=== PATIENT | male | born 1990 | race Caucasian/White ===

== ENCOUNTER 2024-09-17 00:50 | Emergency (ER) | payer MEDICAID, SELFPAY ==
[2024-09-17 01:00] VITALS: BP 128/76; PULSE 122; RESP 20; TEMP 37.5; O2SAT 100
--- NOTE | 2024-09-17 01:08 | PD.EDMEDCL ---
ED Medical Clearance RME/HPI General Chief complaint: Medical Clearance Stated complaint: MEDICAL CLEARANCE Arrival date/time: 09/17/24 00:50 RME / HPI RME / HPI Narrative: Dr. Rodriguez?s Main ED Evaluation: 34yo male with a history of HTN, schizophrenia BIB PPD presents to the ED for a medical clearance. Per PPD, patient would not allow staff at the residential to obtain his vitals, so he was sent over for evaluation. Patient is screaming at staff and is not providing any history. Related Information Previous Rx's ?Medication ?Instructions ?Recorded levofloxacin 750 mg tablet 750 mg PO QDAY #3 tabs 03/20/22 quetiapine 300 mg tablet (Seroquel) 600 mg (2 x 300 mg) PO QDAY #30 03/06/24 tabs Allergies Allergy/AdvReac Type Severity Reaction Status Date / Time ketorolac Allergy Intermediate ITCHING Verified 03/06/24 15:08 Review of Systems Review of Systems ROS Unobtainable: other (due to being uncooperative) Past Medical History Past Medical History NEUROLOGIC: Negative Neurological Disorders CARDIAC: Positive Cardiac Disorders and Hypertension; Negative Congestive Heart Failure RESPIRATORY: Positive Chronic Obstructive Pulmonary Disease (COPD); Negative Asthma GASTROINTESTINAL: Negative Gastrointestinal Disorders GENITOURINARY: Negative Genitourinary Disorders or Renal Disease MUSCULOSKELETAL: Positive Musculoskeletal Disorders ENDOCRINE: Negative Endocrine Disorders, Diabetes Mellitus Type 1 or Diabetes Mellitus Type 2 HEMATOLOGIC: Negative Blood Disorders or Sickle Cell Disease PSYCHO/SOCIAL: Positive Depression and Anxiety OTHER HISTORY: Positive Hospitalization and Chicken Pox; Negative Autoimmune Disease, Down Syndrome, Developmental Delay, Shingles, Falls, Blood Transfusions or Anesthesia Reactions Family History FAMILY HISTORY: Positive Family Cancer Social History SMOKING STATUS: Never smoker SUBSTANCE USE: former substance user ED Exam Narrative Physical exam: Patient is very belligerent and screaming at staff. He is not allowing me to perform a physical examination on him. Patient is yelling without any slurred speech and is observed to ambulate without any difficulty. Vital signs are within normal limits. Course Quality Measures none Vital Signs Vital signs: Vital Signs Temperature 99.5 F 09/17/24 01:00 Pulse Rate 122 H 09/17/24 01:00 Respiratory Rate 20 09/17/24 01:00 Blood Pressure 128/76 09/17/24 01:00 Pulse Oximetry (%) 100 09/17/24 01:00 Oxygen Delivery Method Room Air 09/17/24 01:00 Medical Clearance MDM Narrative MDM Narrative:: Scribe Attestation: 09/17/24 Fanny Doe am scribing for and in the presence of Dr. Rodriguez. Patient data External records reviewed:: [facility], [place] previous records (Per chart review, patient was seen here on 02/15/24 for bipolar disorder.) Clinical information provided by:: law enforcement Social determinants that could affect healthcare access:: mental health Patient has the following chronic illnesses:: HTN, schizophrenia How is presenting disease/condition affected by chronic disease/condition?: uneffected by Evaluation data The following diagnostics were reviewed and interpreted by me:: other (specify) (none) Lab and/or radiology exams considered but not ordered:: none Interpretation Summary: none Medications / Prescriptions Medications or Prescriptions considered but not ordered:: none Medication administrations:: none Consultations Consultation(s) initiated? (list below): No Diagnosis Medical Clearance Differential Diagnosis: other (alcohol intoxication, illicit drug intoxication, psychiatric crisis) Most likely diagnosis given after review of the tests above:: medical clearance Admission Indicated Admission indicated?: not indicated Admission Request Was there a request for admission?: No Disposition Plan Disposition Plan: Discharge Discharge Attestation Discharge Attestation: The patient and all family members were given an opportunity to ask questions and understood the discharge instructions. Discharge instructions specifically effects, indications for sooner follow up or return to the emergency department, and the expected course of current diagnosis. Patient condition: Stable Discharge Plan Plan Patient Disposition: Penitentiary/Court/Law Prescriptions/Referrals Prescriptions/Med Rec: No Action levofloxacin 750 mg tablet 750 mg PO QDAY Qty: 3 0RF quetiapine [Seroquel] 300 mg tablet 600 mg PO QDAY Qty: 30 0RF Referrals: No Primary/Family,Physician [Primary Care Provider] - In 1 week Problem List Clinical Impression: Medical clearance for incarceration Patient/Caregiver Discharge Instructions Print Language: Marshallese
== END 2024-09-17 01:12 ==
PROVIDERS: Emergency Provider Emergency Medicine
DX: Z02.89 Encounter for other administrative examinations (principal)
CPT/HCPCS: 99281

== ENCOUNTER 2024-11-04 10:59 | Emergency (ER) | payer MEDICAID, SELFPAY ==
[2024-11-04 11:00] VITALS: BMI 34.8
[2024-11-04 11:14] VITALS: BP 170/64; PULSE 88; RESP 18; TEMP 36.9; O2SAT 97
--- NOTE | 2024-11-04 11:20 | EKG_ITS ---
[facility] Test Date: 2024-11-04 Pat Name: MARVIN PRICE Department: Room: - Gender: Male Back Up Scan Coordinator: : 1990 Requested By: Rashawn Ballesteros Order Number: [id number] Reading MD: Rashawn Ballesteros Measurements Intervals [place] Rate: 64 P: 31 IA: 136 QRS: 32 QRSD: 102 T: 37 QT: 431 QTc: 446 Interpretive Statements SINUS RHYTHM Compared to ECG 03/15/2022 11:38:28 No significant changes /store/S0/[id number].pdf
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
[2024-11-04 11:45] LABS: Basophils # (Auto) 0.1 Thou/mm3 (0.0-0.2); Basophils % (Auto) 1 % (0-2.5); Eosinophils % (Auto) 0 % (0-10); Hematocrit 35.8 % (41.0-53.0); Hemoglobin 12.7 g/dL (13.5-16.0); Immature Granulocytes % (Auto) 0 % (0-0); Immature Granulocytes Auto 0.02 Thou/mm3 (0.00-0.00); Lymphocytes # (Auto) 1.8 Thou/mm3 (1.0-4.8); Lymphocytes % (Auto) 17 % (10-50); Mean Corpuscular HGB Conc 35.5 g/dl (31.0-37.0); Mean Corpuscular Hemoglobin 29.5 pg (25.0-35.0); Mean Corpuscular Volume 83 fL (80-100); Monocytes # (Auto) 0.6 Thou/mm3 (0.0-0.8); Monocytes % (Auto) 6 % (0-12); Neutrophils # (Auto) 8.1 Thou/mm3 (1.8-7.7); Neutrophils % (Auto) 76 % (37-80); Nucleated Red Blood Cell % 0 /100 WBC (0); Platelet Count 280 Thou/mm3 (140-440); RDW Standard Deviation 45.3 fL (35.1-43.9); White Blood Count 10.6 Thou/mm3 (3.8-10.6)
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
[2024-11-04 12:01] LABS: Partial Thromboplastin Time 26.6 Seconds (22.0-36.0); Prothrombin Time 10.6 Seconds (9.0-12.2)
[2024-11-04 12:03] LABS: B-Type Natriuretic Peptide 68 pg/mL (0-100)
[2024-11-04 12:06] LABS: Alanine Aminotransferase 218 U/L (10-49); Albumin, Serum 3.6 gm/dL (3.5-5.0); Albumin/Globulin Ratio 1.4 (1.2-2.2); Alkaline Phosphatase 96 U/L (46-116); Anion Gap 9 (7-16); Aspartate Amino Transferase 493 U/L (0-34); BUN/Creatinine Ratio 12 Ratio (12-20); Bilirubin,Total 0.7 mg/dL (0.3-1.2); Blood Urea Nitrogen 7 mg/dL (9-23); Calcium 8.7 mg/dL (8.3-10.6); Carbon Dioxide 29.8 mMol/L (20.0-31.0); Chloride 97 mMol/L (98-107); Creatinine (Component) 0.6 mg/dL (0.6-1.3); Globulin 2.5 gm/dL (2.3-3.5); Glucose 87 mg/dL (74-106); Magnesium 1.8 mg/dL (1.6-2.6); Osmolality,Calculated 268 (275-295); Potassium 3.6 mMol/L (3.4-5.1); Sodium 136 mMol/L (136-145); Total Protein 6.1 gm/dL (5.7-8.2); Troponin I < 0.020 ng/mL (0.0-0.045); eGFR > 60 See Note
[2024-11-04 13:32] VITALS: BP 138/78; PULSE 98; RESP 20; TEMP 36.8
[2024-11-04 13:42] LABS: Collection Type, Urine Clean Catch
[2024-11-04 13:55] LABS: Bacteria,Urine Rare; Bilirubin,Urine Negative (Negative); Blood,Urine 1+ (Negative); Clarity,Urine Clear (Clear/Hazy); Color,Urine Yellow (Lt Yel-Yel); Glucose, Urine Negative (Negative); Ketones,Urine 1+ (Negative); Leukocyte Esterase,Urine Negative (Negative); Nitrite,Urine Negative (Negative); PH,Urine 5.5 (5.0-7.0); Protein,Urine 1+ (Neg - Trace); RBC,Urine 4 /hpf (0-3); Specific Gravity,Urine 1.026 (1.001-1.035); Squamous Epithelial Cell,Urine 1 /hpf (0-5); Urobilinogen,Urine Negative mg/dL (0.0-1.0); WBC,Urine 1 /hpf (0-5)
[2024-11-04 14:00] LABS: Amphetamine/Methamp Scrn,U Negative (Negative); Barbiturate Screen,Urine Negative (Negative); Benzodiazepines Screen,Urine Negative (Negative); Benzoylecgonine Screen, Ur Negative (Negative); Fentanyl Screen,Urine Negative (Negative); Opiate Screen,Urine Negative (Negative); THC Screen,Urine Positive (Negative)
[2024-11-04 14:31] VITALS: BP 130/67; PULSE 79; RESP 12; TEMP 37.2; O2SAT 95
--- NOTE | 2024-11-04 14:39 | XR_ITS ---
Examination: Duplex scan of the upper extremity, unilateral right Date and time of exam: November 04, 2024 1511 hrs. Indications: Patient fell 2 days ago with injury to the right arm, right arm pain Technique: Duplex scan of the extremity veins using B-mode/grayscale imaging and Doppler spectral analysis and color flow Attention is directed to internal echogenicity, compression and augmentation involving these veins, color flow assessment, spectral analysis Findings: Major deep venous structures in the extremity demonstrate normal course and caliber. There is no evidence of deep vein thrombosis. Normal color flow and spectral analysis Impression: Negative for DVT..
--- NOTE | 2024-11-04 14:39 | XR_ITS ---
Examination: Forearm, right, 2 views. Technique: Forearm, AP, lateral 2 views Date and time of exam: November 04, 2024 1450 hrs. Indications: Swelling involving the right forearm today. Findings: Edema in the soft tissue diffusely No fracture No cortical bone destruction Moderate narrowing radiocarpal joint No foreign body Impression: No fracture or cortical bone destruction
--- NOTE | 2024-11-04 14:39 | XR_ITS ---
Examination: Right elbow 2 views Technique: Elbow AP, lateral 2 views Exam date and time: October 1450 hrs. Indication: Right elbow swelling and pain after falling today. Findings: No acute fracture No elbow effusion No opaque foreign body Impression: No acute fracture.
[2024-11-04] MEDS: ACETAMINOPHEN 500 MG TABLET 1000 MG PO (15:40)
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
[2024-11-04 16:43] VITALS: BP 140/66; PULSE 89; RESP 18; TEMP 36.7; O2SAT 94
[2024-11-04] MEDS: cefTRIAXone 1,000 MG, LIDOCAINE 1% 20 ML 2.1 ML IM (16:59)
== END 2024-11-04 17:50 | disposition home or self-care (01) ==
PROVIDERS: Nurse Practitioner Family; Emergency Provider Emergency Medicine
DX: S40.811A Abrasion of right upper arm, initial encounter (principal); S80.211A Abrasion, right knee, initial encounter; S80.212A Abrasion, left knee, initial encounter; S51.811A Laceration without foreign body of right forearm, initial encounter; Z59.00 Homelessness unspecified; X99.1XXA Assault by knife, initial encounter; R53.1 Weakness; R53.83 Other fatigue
CPT/HCPCS: 36415; 73070; 73090; 80053; 80307; 81001; 83735; 83880; 84484; 85025; 85610; 85730; 93005; 93971; 96372; 99284; J0696; J3490; A9270

== ENCOUNTER 2024-11-23 02:13 | Inpatient (IN) | payer MEDICAID, SELFPAY ==
[2024-11-23] VITALS (31 sets, daily range): BP systolic 78–135; BP diastolic 46–84; PULSE 80–116; RESP 13–35; TEMP 36.6–37.3; O2SAT 84–99; BMI 33.9; BMI 36.6
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
[2024-11-23] MEDS: TETANUS,DIPHTHERIA TOXOIDS/PF (ADULT) 0.5 ML SYRINGE IMi (03:39)
--- NOTE | 2024-11-23 03:44 | PC.NURSE ---
to ct-scan via gurney.
[2024-11-23 03:58] LABS: Basophils # (Auto) 0.1 Thou/mm3 (0.0-0.2); Basophils % (Auto) 0 % (0-2.5); Eosinophils # (Auto) 0.1 Thou/mm3 (0.0-0.5); Eosinophils % (Auto) 0 % (0-10); Hematocrit 38.1 % (41.0-53.0); Hemoglobin 13.2 g/dL (13.5-16.0); Immature Granulocytes % (Auto) 0 % (0-0); Immature Granulocytes Auto 0.04 Thou/mm3 (0.00-0.00); Lymphocytes # (Auto) 2.2 Thou/mm3 (1.0-4.8); Lymphocytes % (Auto) 15 % (10-50); Mean Corpuscular HGB Conc 34.6 g/dl (31.0-37.0); Mean Corpuscular Hemoglobin 29.9 pg (25.0-35.0); Mean Corpuscular Volume 86 fL (80-100); Monocytes # (Auto) 1.2 Thou/mm3 (0.0-0.8); Monocytes % (Auto) 9 % (0-12); Neutrophils # (Auto) 10.6 Thou/mm3 (1.8-7.7); Neutrophils % (Auto) 75 % (37-80); Nucleated Red Blood Cell % 0 /100 WBC (0); Platelet Count 203 Thou/mm3 (140-440); RDW Standard Deviation 52.4 fL (35.1-43.9); Red Blood Count 4.42 Miln/mm3 (4.50-5.90); White Blood Count 14.1 Thou/mm3 (3.8-10.6)
[2024-11-23 04:17] LABS: Anion Gap 11 (7-16); BUN/Creatinine Ratio 10 Ratio (12-20); Blood Urea Nitrogen 7 mg/dL (9-23); Calcium 8.9 mg/dL (8.3-10.6); Carbon Dioxide 26.6 mMol/L (20.0-31.0); Chloride 101 mMol/L (98-107); Creatinine (Component) 0.7 mg/dL (0.6-1.3); Glucose 118 mg/dL (74-106); Osmolality,Calculated 276 (275-295); Potassium 3.7 mMol/L (3.4-5.1); Sodium 139 mMol/L (136-145); eGFR > 60 See Note
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
[2024-11-23 05:52] LABS: Amphetamine/Methamp Scrn,U Negative (Negative); Barbiturate Screen,Urine Negative (Negative); Benzodiazepines Screen,Urine Negative (Negative); Benzoylecgonine Screen, Ur Negative (Negative); Fentanyl Screen,Urine Negative (Negative); Opiate Screen,Urine Negative (Negative); THC Screen,Urine Positive (Negative)
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
--- NOTE | 2024-11-23 06:58 | XR_ITS ---
Examination: CT cervical spine without contrast 2-D sagittal reconstructions 2-D coronal reconstructions 3-D reconstructions. Exam date and time:November 23, 2024 0923 hours INDICATIONS: Onset neck pain today CTDI:vol (mGy) 17.1 DLP: (mGycm) 124 Technique: Multiple 2 mm axial sections of the cervical spine have been obtained. The coronal and sagittal reconstructions have been obtained. 3-D reconstructions have been obtained. Low dose protocols were performed. One or more of the following dose reduction techniques were used; automated exposure control, adjustment of the mA and/or KV according to patient size, use of iterative reconstruction technique. Findings: Patient motion degrades scan image quality No gross fracture Advanced degenerative disc disease C6-C7 C5-C6 moderate right neural foraminal stenosis C6-C7 moderate right neural foraminal stenosis Intact odontoid IMPRESSION: Patient motion severely degrades scan image quality Advanced degenerative disc disease C6-C7 MRI cervical spine without contrast follow-up would be preferable in assessing for acquired soft tissue spinal stenosis, as clinically warranted
[2024-11-23] MEDS: BUPIVACAINE MPF 0.5% 10 ML VIAL INFL (08:21)
--- NOTE | 2024-11-23 11:00 | PC.NURSE ---
DR. MAJANO AT BEDSIDE SUTURING PT'S LAC TO L EYEBROW.
--- NOTE | 2024-11-23 12:49 | PC.NURSE ---
DR. MAJANO MADE AWARE THAT PT'S SCORE IS 12 AT THIS TIME.
[2024-11-23] MEDS: LORazepam 2 MG/ML VIAL IVP (14:09)
--- NOTE | 2024-11-23 14:17 | PC.NURSE ---
SPOKE TO ANY, PT'S MOM, WITH PT'S CONSENT AND UPDATED REGARDING PT'S POC.
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
--- NOTE | 2024-11-23 19:32 | PC.NURSE ---
Report recieved from Day RN. Pt asleep at this time. VS WNL.
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
[2024-11-23] MEDS: HYDROcodone/APAP 5/325 TABLET 1 TAB PO (22:25)
[2024-11-23] MEDS: LORazepam 2 MG/ML VIAL IV ×2 (22:33→22:34)
--- NOTE | 2024-11-23 22:39 | PC.NURSE ---
pt co bad LOPEZ and iss very shaky. CIWA 20. meds given.
[2024-11-24] VITALS (8 sets, daily range): BP systolic 98–150; BP diastolic 59–87; PULSE 98–116; RESP 15–22; TEMP 35.9–37.5; O2SAT 92–96; BMI 35.9; BMI 36.0
[2024-11-24] MEDS: LORazepam 2 MG/ML VIAL 1 MG IV (01:17)
--- NOTE | 2024-11-24 01:21 | PC.NURSE ---
pt got up and walked to the BR.
--- NOTE | 2024-11-24 03:46 | PC.NURSE ---
Report called to Shagufta RN and pt taken on monitor to RM 264 by myself.
[2024-11-24] MEDS: THIAMINE INJ 100 MG in SODIUM CHLORIDE 0.9% 50 ML 102 MG IV (05:29)
[2024-11-24 06:04] LABS: Basophils % (Auto) 0 % (0-2.5); Eosinophils % (Auto) 0 % (0-10); Hemoglobin 11.6 g/dL (13.5-16.0); Immature Granulocytes % (Auto) 0 % (0-0); Immature Granulocytes Auto 0.03 Thou/mm3 (0.00-0.00); Lymphocytes % (Auto) 21 % (10-50); Mean Corpuscular HGB Conc 33.1 g/dl (31.0-37.0); Mean Corpuscular Volume 90 fL (80-100); Monocytes # (Auto) 0.9 Thou/mm3 (0.0-0.8); Monocytes % (Auto) 10 % (0-12); Neutrophils # (Auto) 6.6 Thou/mm3 (1.8-7.7); Neutrophils % (Auto) 68 % (37-80); Nucleated Red Blood Cell % 0 /100 WBC (0); Platelet Count 193 Thou/mm3 (140-440); Red Blood Count 3.87 Miln/mm3 (4.50-5.90); White Blood Count 9.7 Thou/mm3 (3.8-10.6)
[2024-11-24 06:11] LABS: INR 1.1 (0.9-1.3); Partial Thromboplastin Time 32.9 Seconds (22.0-36.0); Prothrombin Time 11.7 Seconds (9.0-12.2)
[2024-11-24 06:15] LABS: Iron 19 mcg/dL (65-175); Percent Iron Saturation 7 % (20-55); Total Iron Binding Capacity 250 mcg/dL (250-425); Unsaturated Iron Binding 231 (225-295)
[2024-11-24 06:19] LABS: Alanine Aminotransferase 36 U/L (10-49); Albumin, Serum 3.4 gm/dL (3.5-5.0); Alkaline Phosphatase 142 U/L (46-116); Anion Gap 9 (7-16); Aspartate Amino Transferase 54 U/L (0-34); BUN/Creatinine Ratio 11 Ratio (12-20); Bilirubin,Total 0.4 mg/dL (0.3-1.2); Blood Urea Nitrogen 8 mg/dL (9-23); Calcium 8.4 mg/dL (8.3-10.6); Calcium (Corrected) 8.9 mg/dL (8.5-10.1); Carbon Dioxide 30.5 mMol/L (20.0-31.0); Cardiac Risk Estimate 3.2 RATIO (4.0-6.7); Chloride 99 mMol/L (98-107); Cholesterol 174 mg/dL (132-200); Creatinine (Component) 0.7 mg/dL (0.6-1.3); Estimated Creatinine Clearance 189.7 mL/min (>60); Globulin 3.3 gm/dL (2.3-3.5); Glucose 81 mg/dL (74-106); HDL Cholesterol 55 mg/dL (40-60); LDL Cholesterol,Calculated 98 mg/dL (0-130); Magnesium 1.8 mg/dL (1.6-2.6); Osmolality,Calculated 272 (275-295); Phosphorous 2.5 mg/dL (2.4-5.1); Potassium 3.8 mMol/L (3.4-5.1); Sodium 138 mMol/L (136-145); Thyroid Stimulating Hormone 2.72 uIU/mL (0.55-4.78); Total Protein 6.7 gm/dL (5.7-8.2); Triglycerides 107 mg/dL (30-150); eGFR > 60 See Note
[2024-11-24 06:51] LABS: Glucose Estimated Average 97 mg/dL (80-131)
[2024-11-24 08:13] LABS: Path Review Blood Smear Sent to Pathologist
[2024-11-24] MEDS: FOLIC ACID 1 MG TABLET PO ×2 (10:01→20:36)
[2024-11-24] MEDS: THIAMINE 100 MG TABLET PO ×2 (10:01→20:36)
[2024-11-24] MEDS: MOXIFLOXACIN OP SOL 0.5% 3 ML BTL 1 DROP RIGHT EYE ×2 (11:59→22:09)
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
--- NOTE | 2024-11-24 13:38 | ESPR_ITS ---
<Statement entered by Cally Estevez MD - 11/24/24 18:38> Patient is a 34-year-old male with past medical history of homelessness, polysubstance use who was admitted for acute encephalopathy in the setting of alcohol intoxication. Alcohol level was 312. Patient was seen and examined at bedside. Patient received a total of 7 mg of Ativan, and appeared very lethargic, minimally arousable to sternal rub. Patient later seen few hours later, and more awake. Will hold off on CIWA, and will continue with Tylenol and gabapentin for pain control. Continue with neurochecks every 4 and will keep seizure precautions. I discussed with and supervised the chief of internal medicine physician who took care of this patient. I personally saw and examined the patient and discussed the assessment and plan with the entire medicine team, including my attending , I agree with most of the assessment and plan as documented below Cally Estevez M.D. PGY-2 Disclaimer: Despite multiple revisions, due to the dictation software being used, the document bellow may not be free of grammatical errors including phonetic/typographic errors. However, this does not deter from our commitment to providing health care in the patient's best interest in mind. <Statement entered by Keerthi Palmer MD - 11/24/24 15:44> I discussed with and supervised the chief of internal medicine physician who took care of this patient. I personally saw and examined the patient and discussed the assessment and plan with the entire medicine team, including my attending Dr. Carey, I agree with the assessment and plan as documented below Patient seen and examined at bedside today. Labs and imaging reviewed. No overnight events This morning the bedside patient is lethargic, difficult to arouse otherwise blood pressure, respiratory rate, heart rate has been stable patient CIWA score was 0 otherwise patient received overnight lorazepam and gabapentin for CIWA protocol. Will discontinue gabapentin, will order STD panel and will continue to monitor for alcohol withdrawal. Keerthi Palmer MD PGY-3 Disclaimer: Despite multiple revisions, due to the dictation software being used, the document bellow may not be free of grammatical errors including phonetic/typographic errors. However, this does not deter from our commitment to providing health care in the patient's best interest in mind. Documentation for date of: 11/24/24 Subjective Subjective Interval history: No overnight events. Patient seen examined at bedside. Patient awake, alert, complains of pain around left eye and minimal nausea. Denies fever, chills, shortness of breath, chest pain. Add pain medication. Resume home gabapentin. Exam Vital Signs Temp Pulse Resp BP Pulse Ox O2 Del Method O2 Flow Rate 96.6 F L 102 H 17 150/83 H 96 Nasal Cannula 3 11/24/24 12:00 11/24/24 12:00 11/24/24 12:00 11/24/24 12:00 11/24/24 12:00 11/24/24 12:00 11/24/24 12:00 Narrative Exam PE: Gen: Well-developed and well-nourished. Disheveled. HEENT: Left eyebrow laceration, dried blood and bruising. Right eye conjunctival injection and crusting. CVS: normal S1 and S2. RRR. No M/R/G. Resp: CTA B/L. No rhonchi, rales, crackles or wheezing. Abd: soft, non-distended. Minimal diffuse tenderness. MSK: Good ROM in BUE & BLE. No edema or rash. Neuro: CN II-XII grossly intact. Strength 5/5 in BUE & BLE. Alert and oriented x3. Psych: appropriate mood and affect. Objective Labs 11/25/24 05:27 11/25/24 05:27 Labs: Laboratory Results - last 24 hr 11/24/24 05:15 WBC 9.7 RBC 3.87 L Hgb 11.6 L Hct 35.0 L MCV 90 MCH 30.0 MCHC 33.1 RDW Std Deviation 54.0 H Plt Count 193 Neut % (Auto) 68 Lymph % (Auto) 21 Williamson % (Auto) 10 Eos % (Auto) 0 Baso % (Auto) 0 Neut # (Auto) 6.6 Lymph # (Auto) 2.0 Williamson # (Auto) 0.9 H Eos # (Auto) 0.0 Baso # (Auto) 0.0 Immature Gran # (Auto) 0.03 H Absolute Nucleated RBC 0.00 Immature Gran % 0 Nucleated RBC % 0 Smear Path Review Sent to Pathologist PT 11.7 INR 1.1 APTT 32.9 Sodium 138 Potassium 3.8 Chloride 99 Carbon Dioxide 30.5 Anion Gap 9 BUN 8 L Creatinine 0.7 Estim Creat Clear Calc 189.7 eGFR > 60 BUN/Creatinine Ratio 11 L Glucose [address] Glu mg/dL 97 Hemoglobin A1c 5.0 Calculated Osmolality 272 L Calcium 8.4 Corrected Calcium 8.9 Phosphorus 2.5 Magnesium 1.8 Iron 19 L TIBC 250 Iron Saturation 7 L Unsat Iron Binding 231 Total Bilirubin 0.4 AST 54 H ALT 36 Alkaline Phosphatase 142 H Total Protein 6.7 Albumin 3.4 L Globulin 3.3 Albumin/Globulin Ratio 1.0 L Triglycerides 107 Cholesterol 174 LDL Cholesterol, Calc 98 HDL Cholesterol 55 Cholesterol/HDL Ratio 3.2 L TSH 2.72 Quality Measures Quality Measures none Assessment & Plan Assessment Current Active Medications: Generic Name Dose Route Start Last Admin Trade Name Freq PRN Reason Stop Dose Admin Acetaminophen 650 mg 11/23/24 21:03 Acetaminophen 325 Mg Tablet PO 12/23/24 21:02 Q6H PRN Fever >100 or pain 1-3 Folic Acid 1 mg 11/24/24 09:00 11/24/24 10:01 Folic Acid 1 Mg Tablet PO 11/29/24 08:59 1 mg BID LEANDRA Administration Gabapentin 100 mg 11/23/24 22:01 Gabapentin 100 Mg Capsule PO 12/23/24 22:00 Q6H PRN for CIWA 2-6 Lorazepam 1 mg 11/23/24 21:08 Lorazepam 2 Mg/Ml Vial IV X1 PRN Breakthrough Agitation Lorazepam 1 mg 11/23/24 21:08 11/24/24 01:17 Lorazepam 2 Mg/Ml Vial IV 11/28/24 21:07 1 mg Q2HR PRN Administration CIWA SCORE 14-19 Lorazepam 0.5 mg 11/23/24 21:08 Lorazepam 2 Mg/Ml Vial IV 11/28/24 21:07 Q2HR PRN CIWA SCORE 8-13 Lorazepam 2 mg 11/23/24 21:08 11/23/24 22:34 Lorazepam 2 Mg/Ml Vial IV 11/28/24 21:07 2 mg Q2HR PRN Administration CIWA SCORE 20-25 Moxifloxacin HCl 1 drop 11/24/24 10:00 11/24/24 11:59 Moxifloxacin Op Faby 0.5% 3 Ml Btl RIGHT EYE 12/24/24 09:59 1 drop TID LEANDRA Administration Ondansetron HCl 4 mg 11/24/24 04:57 Ondansetron Inj 2 Mg/Ml Inj 2 Ml IV 12/24/24 04:56 Q6HR PRN NAUSEA OR VOMITING Protocol Thiamine HCl 100 mg 11/24/24 09:00 11/24/24 10:01 Thiamine 100 Mg Tablet PO 11/29/24 08:59 100 mg BID LEANDRA Administration Plan 34 y/o male with PMHx of homelessness, substance abuse (THC and possibly other substances), who is admitted for acute encephalopathy secondary to alcohol intoxication. #Acute encephalopathy secondary to #Alcohol intoxication #Concern for alcohol withdrawal Patient has had previous admission for alcohol intoxication, this admission alcohol level 315, previous admission was 276 Last drink was night of admission. Patient was placed on CIWA protocol, received a total of 7 mg Ativan overnight, the following day patient was extremely lethargic, minimally arousable to noxious stimuli. CIWA protocol held, suspect acute encephalopathy due to alcohol intoxication. -Seizure precautions -Neurochecks every 4 hours -Telemetry -Pain control with Tylenol for now, [place] breakthrough -Aspiration precautions -Thiamine and Folate #Chronic Normocytic anemia Seems to be chronic, pt could have some blood loss due to trauma, also there could be other component as well. Denies Blood thinner use or recent vomiting. Iron panel indicates iron deficiency anemia. -Trend CBC -Transfusion protocol hemoglobin below 7 -Avoiding any NSAIDs -Protonix 40 mg daily #History of schizophrenia Patient has history as stated. Intermittently takes Seroquel, last prescription from a year ago. Patient states he Seroquel night of admission, does not remember when he took it before that. -Monitor -Outpatient follow-up #History of anxiety #Homeless #Substance abuse, THC #Hx of Alcohol abuse THC seen in U tox, alcohol level of 312 on admission -Referral to social service worker -Discussed EtOH cessation -Pt to benefit from Campral or Vivitrol outpatient therapy -Resume home med: Gabapentin 6 mg p.o. 3 times daily DVT prophylaxis: SCDs GI prophylaxis: Protonix Diet: Dysphagia level 3 Lines: Peripheral IV CODE STATUS: Full Plan of care discussed with senior residents Dr. Palmer PGY?[address] Estevez PGY?2, and attending Dr. Carey. Ariel Gardner MD PGY?1 Attending Provider Attestation/Addendum I have examined the patient, reviewed labs and imaging findings, discussed the case with the resident(s), and reviewed entered orders. I agree with the plan of care as outlined in this note, with these additional summaries/recommendations: Patient seen at bedside. Patient is very somnolent today and not responding to questions although does open eyes to light sternal rub. We will place CIWA on hold for now. We will monitor for any alcohol withdrawal. Patient?s iron panel shows low iron. We will consider starting oral ferrous sulfate every other day once patient is more improved. U-Tox positive for marijuana and ethyl alcohol 315 on admission. We will personnel counselor patient on substance abuse once mentation is more improved. Appears to have right bacterial conjunctivitis and will antibacterial eyedrops. Repeat hematology and chemistry panel in AM. Dr. Aurelio MD
[2024-11-24] MEDS: GABAPENTIN 300 MG CAPSULE 600 MG PO ×2 (15:57→22:07)
[2024-11-24] MEDS: HYDROcodone/APAP 5/325 TABLET 1 TAB PO ×2 (15:57→22:07)
[2024-11-24 16:23] LABS: Syphilis Nonreactive (Nonreactive)
[2024-11-24] MEDS: MORPHINE SULF INJ 10 MG/ML VIAL IVP (23:20)
[2024-11-25] VITALS: BP 146/87; PULSE 109; PULSE 112; RESP 17; TEMP 36.3; O2SAT 97
[2024-11-25] MEDS: MORPHINE SULF INJ 10 MG/ML VIAL IVP (01:38)
[2024-11-25 04:00] VITALS: BP 136/77; PULSE 104; PULSE 99; RESP 19; TEMP 36.6; O2SAT 93
[2024-11-25] MEDS: HYDROcodone/APAP 5/325 TABLET 1 TAB PO ×3 (04:10→21:44)
[2024-11-25] MEDS: GABAPENTIN 300 MG CAPSULE 600 MG PO ×3 (05:07→21:44)
[2024-11-25] MEDS: ACETAMINOPHEN 325 MG TABLET 650 MG PO (05:07)
[2024-11-25] MEDS: MOXIFLOXACIN OP SOL 0.5% 3 ML BTL 1 DROP RIGHT EYE ×3 (05:08→21:46)
[2024-11-25 05:33] VITALS: BMI 36.8
[2024-11-25 06:13] LABS: Basophils % (Auto) 0 % (0-2.5); Eosinophils # (Auto) 0.1 Thou/mm3 (0.0-0.5); Eosinophils % (Auto) 1 % (0-10); Hematocrit 37.3 % (41.0-53.0); Hemoglobin 12.3 g/dL (13.5-16.0); Immature Granulocytes % (Auto) 1 % (0-0); Immature Granulocytes Auto 0.06 Thou/mm3 (0.00-0.00); Lymphocytes # (Auto) 2.5 Thou/mm3 (1.0-4.8); Lymphocytes % (Auto) 25 % (10-50); Mean Corpuscular Hemoglobin 29.6 pg (25.0-35.0); Mean Corpuscular Volume 90 fL (80-100); Monocytes % (Auto) 10 % (0-12); Neutrophils # (Auto) 6.4 Thou/mm3 (1.8-7.7); Neutrophils % (Auto) 63 % (37-80); Nucleated Red Blood Cell % 0 /100 WBC (0); Platelet Count 217 Thou/mm3 (140-440); RDW Standard Deviation 53.1 fL (35.1-43.9); Red Blood Count 4.15 Miln/mm3 (4.50-5.90); White Blood Count 10.1 Thou/mm3 (3.8-10.6)
[2024-11-25 06:56] LABS: Alanine Aminotransferase 41 U/L (10-49); Albumin, Serum 3.5 gm/dL (3.5-5.0); Alkaline Phosphatase 145 U/L (46-116); Anion Gap 10 (7-16); Aspartate Amino Transferase 44 U/L (0-34); BUN/Creatinine Ratio 8 Ratio (12-20); Bilirubin,Total 0.4 mg/dL (0.3-1.2); Blood Urea Nitrogen 5 mg/dL (9-23); Calcium 8.8 mg/dL (8.3-10.6); Calcium (Corrected) 9.2 mg/dL (8.5-10.1); Carbon Dioxide 27.1 mMol/L (20.0-31.0); Chloride 100 mMol/L (98-107); Creatinine (Component) 0.6 mg/dL (0.6-1.3); Estimated Creatinine Clearance 220.2 mL/min (>60); Globulin 3.6 gm/dL (2.3-3.5); Glucose 113 mg/dL (74-106); Magnesium 1.8 mg/dL (1.6-2.6); Osmolality,Calculated 272 (275-295); Phosphorous 2.3 mg/dL (2.4-5.1); Potassium 3.5 mMol/L (3.4-5.1); Sodium 137 mMol/L (136-145); Total Protein 7.1 gm/dL (5.7-8.2); eGFR > 60 See Note
[2024-11-25 08:00] VITALS: BP 139/91; PULSE 80; PULSE 99; RESP 16; TEMP 36.9; O2SAT 95
[2024-11-25] MEDS: FOLIC ACID 1 MG TABLET PO ×2 (08:45→20:35)
[2024-11-25] MEDS: THIAMINE 100 MG TABLET PO ×2 (08:45→20:35)
[2024-11-25] MEDS: LORazepam 2 MG/ML VIAL 1 MG IV ×3 (08:45→22:35)
[2024-11-25] MEDS: POTASSIUM CHLORIDE 20 mEq TABCR PO (08:45)
[2024-11-25] MEDS: NAPH,KPH MBDB 1 PACKET (1.5 GM) PO (08:45)
--- NOTE | 2024-11-25 10:30 | PC.NURSE ---
PT REFUSED ATIVAN PILL FOR CIWA OF 4, HE WANTED TO CONTINUE SLEEPING. PT IN NO DISTRESS, ROOM AIR, A/O X4
[2024-11-25 12:00] VITALS: BP 137/96; PULSE 90; PULSE 99; RESP 17; TEMP 36.4; O2SAT 99
[2024-11-25] MEDS: LORazepam 0.5 MG TABLET PO (13:20)
--- NOTE | 2024-11-25 13:39 | ESPR_ITS ---
<Statement entered by Cally Estevez MD - 11/25/24 16:24> Patient seen and examined at bedside. Overnight, patient received 2mg Morphine on 2 separate occasions for L eye. Patient's CIWA score increasing, and will start patient back on CIWA. Patient also mentioned visual hallucinations but is not new. Will continue with Gabapentin and Moxifloxacin for drops. I discussed with and supervised the financial analyst intern physician who took care of this patient. I personally saw and examined the patient and discussed the assessment and plan with the entire medicine team, including my attending , I agree with most of the assessment and plan as documented below Cally Estevez M.D. PGY-2 Disclaimer: Despite multiple revisions, due to the dictation software being used, the document bellow may not be free of grammatical errors including phonetic/typographic errors. However, this does not deter from our commitment to providing health care in the patient's best interest in mind. Documentation for date of: 11/25/24 Subjective Subjective Interval history: Overnight: Patient received 1 mg of morphine 2 separate times for pain. Patient seen examined bedside. Patient appears lethargic, received 1 mg Ativan. Patient responsive and cooperative, endorses pain to the left side of his head, denies shortness of breath, chest pain, nausea, vomiting, fevers, chills. Placed back on CIWA protocol due to CIWA score 14. Complicated by hallucinations at baseline. Exam Vital Signs Temp Pulse Resp BP Pulse Ox O2 Del Method O2 Flow Rate 97.6 F 99 17 137/96 H 99 Room Air 3 11/25/24 12:00 11/25/24 12:00 11/25/24 12:00 11/25/24 12:00 11/25/24 12:11/25/24 12:11/24/24 16:00 Narrative Exam PE: Gen: Well-developed and well-nourished. Disheveled. HEENT: Left eyebrow laceration, dried blood and bruising. CVS: normal S1 and S2. RRR. No M/R/G. Resp: CTA B/L. No rhonchi, rales, crackles or wheezing. Abd: soft, non-distended. Minimal diffuse tenderness. MSK: Good ROM in BUE & BLE. No edema or rash. Neuro: CN II-XII grossly intact. Strength 5/5 in BUE & BLE. Alert and oriented x3. Psych: appropriate mood and affect. Objective Labs 11/25/24 05:27 11/25/24 05:27 Labs: Laboratory Results - last 24 hr 11/24/24 11/25/24 05:15 05:27 WBC 10.1 RBC 4.15 L Hgb 12.3 L Hct 37.3 L MCV 90 MCH 29.6 MCHC 33.0 RDW Std Deviation 53.1 H Plt Count 217 Neut % (Auto) 63 Lymph % (Auto) 25 [place] % (Auto) 10 Eos % (Auto) 1 Baso % (Auto) 0 Neut # (Auto) 6.4 Lymph # (Auto) 2.5 [place] # (Auto) 1.0 H Eos # (Auto) 0.1 Baso # (Auto) 0.0 Immature Gran # (Auto) 0.06 H Absolute Nucleated RBC 0.00 Immature Gran % 1 H Nucleated RBC % 0 Sodium 137 Potassium 3.5 Chloride 100 Carbon Dioxide 27.1 Anion Gap 10 BUN 5 L Creatinine 0.6 Estim Creat Clear Calc 220.2 eGFR > 60 BUN/Creatinine Ratio 8 L Glucose 113 H Calculated Osmolality 272 L Calcium 8.8 Corrected Calcium 9.2 Phosphorus 2.3 L Magnesium 1.8 Total Bilirubin 0.4 AST 44 H ALT 41 Alkaline Phosphatase 145 H Total Protein 7.1 Albumin 3.5 Globulin 3.6 H Albumin/Globulin Ratio 1.0 L Syphilis Serology Nonreactive Quality Measures Quality Measures VTE prophylaxis Assessment & Plan Assessment Current Active Medications: Generic Name Dose Route Start Last Admin Trade Name Freq PRN Reason Stop Dose Admin Acetaminophen 650 mg 11/23/24 21:03 11/25/24 05:07 Acetaminophen 325 Mg Tablet PO 12/23/24 21:02 650 mg Q6H PRN Administration Fever >100 or pain 1-3 Hydrocodone Bitart/Acetaminophen 1 tab 11/24/24 15:43 11/25/24 04:10 Hydrocodone/Apap 5/325 Tablet PO 11/29/24 15:42 1 tab Q6HR PRN Administration PAIN 4-6 Folic Acid 1 mg 11/24/24 09:00 11/25/24 08:45 Folic Acid 1 Mg Tablet PO 11/29/24 08:59 1 mg BID LEANDRA Administration Gabapentin 600 mg 11/24/24 22:00 11/25/24 13:20 Gabapentin 300 Mg Capsule PO 12/24/24 21:59 600 mg TID LEANDRA Administration Lorazepam 0.5 mg 11/25/24 08:29 Lorazepam 2 Mg/Ml Vial IV 11/30/24 08:28 Q2HR PRN CIWA SCORE 7-13 Lorazepam 1 mg 11/25/24 08:29 11/25/24 08:45 Lorazepam 2 Mg/Ml Vial IV 11/30/24 08:28 1 mg Q2HR PRN Administration CIWA SCORE 14-19 Lorazepam 2 mg 11/25/24 08:29 Lorazepam 2 Mg/Ml Vial IV 11/30/24 08:28 Q2HR PRN CIWA SCORE 20-25 Lorazepam 2 mg 11/25/24 08:29 Lorazepam 2 Mg/Ml Vial IVP X1 PRN Breakthrough Agitation Lorazepam 0.5 mg 11/25/24 08:29 11/25/24 13:20 Lorazepam 0.5 Mg Tablet PO 11/30/24 08:28 0.5 mg Q4HR PRN Administration CIWA Score 2-6 Moxifloxacin HCl 1 drop 11/24/24 10:00 11/25/24 05:08 Moxifloxacin Op Faby 0.5% 3 Ml Btl RIGHT EYE 12/24/24 09:59 1 drop TID LEANDRA Administration Ondansetron HCl 4 mg 11/24/24 04:57 Ondansetron Inj 2 Mg/Ml Inj 2 Ml IV 12/24/24 04:56 Q6HR PRN NAUSEA OR VOMITING Protocol Thiamine HCl 100 mg 11/24/24 09:00 11/25/24 08:45 Thiamine 100 Mg Tablet PO 11/29/24 08:59 100 mg BID LEANDRA Administration Plan 34 y/o male with PMHx of homelessness, substance abuse (THC and possibly other substances), who is admitted for acute encephalopathy secondary to alcohol intoxication. #Acute encephalopathy (improving) secondary to #Alcohol intoxication #Concern for alcohol withdrawal Patient has had previous admission for alcohol intoxication, this admission alcohol level 315, previous admission was 276 Last drink was night of admission. Patient was placed on CIWA protocol, received a total of 7 mg Ativan overnight, the following day patient was extremely lethargic, minimally arousable to noxious stimuli. CIWA protocol held, suspect acute encephalopathy due to alcohol intoxication. Patient CIWA score 14, CIWA protocol resumed. Will monitor closely. -CIWA protocol -Seizure precautions -Neurochecks every 4 hours -Telemetry -Pain control with Tylenol, [place] breakthrough -Aspiration precautions -Thiamine and Folate #Chronic Normocytic anemia Seems to be chronic, pt could have some blood loss due to trauma, also there could be other component as well. Denies Blood thinner use or recent vomiting. Iron panel indicates iron deficiency anemia. -Trend CBC -Transfusion protocol hemoglobin below 7 -Avoiding any NSAIDs -Protonix 40 mg daily #Conjunctivitis, bacterial versus viral On admission patient noted to have conjunctival injection of the right eye with yellow crusting around the eyelid. Possible infection, will order antibiotic eyedrops. -Moxifloxacin eyedrops right eye only 3 times daily #History of schizophrenia Patient has history as stated. Intermittently takes Seroquel, last prescription from a year ago. Patient states he Seroquel night of admission, does not remember when he took it before that. -Monitor -Outpatient follow-up #History of anxiety #Homeless #Substance abuse, THC #Hx of Alcohol abuse THC seen in U tox, alcohol level of 312 on admission -Referral to social service technician -Discussed EtOH cessation -Pt to benefit from Campral or Vivitrol outpatient therapy -Resume home med: Gabapentin 6 mg p.o. 3 times daily DVT prophylaxis: SCDs GI prophylaxis: Protonix Diet: Dysphagia level 3 Lines: Peripheral IV CODE STATUS: Full Plan of care discussed with senior resident Dr. Estevez PGY?2, and attending Dr. Carey. Ariel Gardner MD PGY?1 Attending Provider Attestation/Addendum I have examined the patient, reviewed labs and imaging findings, discussed the case with the resident(s), and reviewed entered orders. I agree with the plan of care as outlined in this note, with these additional summaries/recommendations: Patient seen at bedside. No acute overnight events. Patient seen sitting up in bed and opens eyes spontaneously although not responding to questions. He apparently was endorsing hallucinations earlier in the morning to medical staff. CIWA this morning 14 and patient will be restarted on CIWA protocol. Patient is prescribed Seroquel although has only taken a couple pills within the last year. We will hold Seroquel for now as patient most likely has not been taking. Hypophosphatemia present and replacement given. We will chromosomal disorders counselor patient on substance cessation once mentation is more improved. Continue bacterial eyedrops for conjunctivitis. Repeat hematology and chemistry panel in AM. Dr. Aurelio MD
[2024-11-25 16:00] VITALS: BP 153/79; PULSE 100; PULSE 92; RESP 16; TEMP 36.8; O2SAT 92
[2024-11-25] MEDS: LORazepam 2 MG/ML VIAL 0.5 MG IV (17:44)
[2024-11-25 20:00] VITALS: BP 156/92; PULSE 93; PULSE 99; RESP 12; TEMP 37.4; O2SAT 97
[2024-11-26] VITALS: BP 140/94; PULSE 104; PULSE 75; RESP 19; TEMP 37.4; O2SAT 97
[2024-11-26] MEDS: lorataDINE 10 MG TABLET PO (00:01)
[2024-11-26] MEDS: MORPHINE SULF INJ 10 MG/ML VIAL IVP (00:01)
[2024-11-26] MEDS: LORazepam 2 MG/ML VIAL IV (00:45)
[2024-11-26] MEDS: HYDROcodone/APAP 5/325 TABLET 1 TAB PO (02:44)
[2024-11-26] MEDS: LORazepam 2 MG/ML VIAL 1 MG IV (02:50)
[2024-11-26 04:00] VITALS: BP 128/82; PULSE 93; PULSE 95; RESP 19; TEMP 37.1; O2SAT 92
[2024-11-26] MEDS: GABAPENTIN 300 MG CAPSULE 600 MG PO (05:17)
[2024-11-26 05:48] VITALS: BMI 36.6
[2024-11-26 05:51] LABS: Basophils % (Auto) 0 % (0-2.5); Eosinophils # (Auto) 0.3 Thou/mm3 (0.0-0.5); Eosinophils % (Auto) 3 % (0-10); Hematocrit 39.4 % (41.0-53.0); Immature Granulocytes % (Auto) 1 % (0-0); Immature Granulocytes Auto 0.07 Thou/mm3 (0.00-0.00); Lymphocytes % (Auto) 29 % (10-50); Mean Corpuscular Hemoglobin 29.7 pg (25.0-35.0); Mean Corpuscular Volume 90 fL (80-100); Monocytes # (Auto) 1.2 Thou/mm3 (0.0-0.8); Monocytes % (Auto) 12 % (0-12); Neutrophils # (Auto) 5.6 Thou/mm3 (1.8-7.7); Neutrophils % (Auto) 56 % (37-80); Nucleated Red Blood Cell % 0 /100 WBC (0); Platelet Count 242 Thou/mm3 (140-440); RDW Standard Deviation 52.6 fL (35.1-43.9); Red Blood Count 4.38 Miln/mm3 (4.50-5.90); White Blood Count 10.1 Thou/mm3 (3.8-10.6)
[2024-11-26 06:38] LABS: Alanine Aminotransferase 50 U/L (10-49); Albumin, Serum 3.7 gm/dL (3.5-5.0); Albumin/Globulin Ratio 0.9 (1.2-2.2); Alkaline Phosphatase 138 U/L (46-116); Anion Gap 10 (7-16); Aspartate Amino Transferase 65 U/L (0-34); BUN/Creatinine Ratio 10 Ratio (12-20); Bilirubin,Total 0.3 mg/dL (0.3-1.2); Blood Urea Nitrogen 7 mg/dL (9-23); Calcium (Corrected) 9.2 mg/dL (8.5-10.1); Carbon Dioxide 25.2 mMol/L (20.0-31.0); Chloride 102 mMol/L (98-107); Creatinine (Component) 0.7 mg/dL (0.6-1.3); Estimated Creatinine Clearance 188.4 mL/min (>60); Glucose 100 mg/dL (74-106); Magnesium 1.7 mg/dL (1.6-2.6); Osmolality,Calculated 271 (275-295); Potassium 4.1 mMol/L (3.4-5.1); Sodium 137 mMol/L (136-145); Total Protein 7.7 gm/dL (5.7-8.2); eGFR > 60 See Note
--- NOTE | 2024-11-26 07:22 | PD.RESPRO ---
Documentation for date of: 11/26/24 Exam Vital Signs Temp Pulse Resp BP Pulse Ox O2 Del Method O2 Flow Rate 98.8 F 95 19 128/82 92 L Room Air 3 11/26/24 04:00 11/26/24 04:00 11/26/24 04:00 11/26/24 04:00 11/26/24 04:00 11/26/24 04:00 11/26/24 00:00 Objective Labs 11/26/24 05:19 11/26/24 05:19 Labs: Laboratory Results - last 24 hr 11/26/24 05:19 WBC 10.1 RBC 4.38 L Hgb 13.0 L Hct 39.4 L MCV 90 MCH 29.7 MCHC 33.0 RDW Std Deviation 52.6 H Plt Count 242 Neut % (Auto) 56 Lymph % (Auto) 29 [place] % (Auto) 12 Eos % (Auto) 3 Baso % (Auto) 0 Neut # (Auto) 5.6 Lymph # (Auto) 3.0 [place] # (Auto) 1.2 H Eos # (Auto) 0.3 Baso # (Auto) 0.0 Immature Gran # (Auto) 0.07 H Absolute Nucleated RBC 0.00 Immature Gran % 1 H Nucleated RBC % 0 Sodium 137 Potassium 4.1 D Chloride 102 Carbon Dioxide 25.2 Anion Gap 10 BUN 7 L Creatinine 0.7 Estim Creat Clear Calc 188.4 eGFR > 60 BUN/Creatinine Ratio 10 L Glucose 100 Calculated Osmolality 271 L Calcium 9.0 Corrected Calcium 9.2 Phosphorus 4.0 Magnesium 1.7 Total Bilirubin 0.3 AST 65 H ALT 50 H Alkaline Phosphatase 138 H Total Protein 7.7 Albumin 3.7 Globulin 4.0 H Albumin/Globulin Ratio 0.9 L Quality Measures Quality Measures VTE prophylaxis Assessment & Plan Assessment Current Active Medications: Generic Name Dose Route Start Last Admin Trade Name Freq PRN Reason Stop Dose Admin Acetaminophen 650 mg 11/23/24 21:03 11/25/24 05:07 Acetaminophen 325 Mg Tablet PO 12/23/24 21:02 650 mg Q6H PRN Administration Fever >100 or pain 1-3 Hydrocodone Bitart/Acetaminophen 1 tab 11/24/24 15:43 11/26/24 02:44 Hydrocodone/Apap 5/325 Tablet PO 11/29/24 15:42 1 tab Q6HR PRN Administration PAIN 4-6 Folic Acid 1 mg 11/24/24 09:00 11/25/24 20:35 Folic Acid 1 Mg Tablet PO 11/29/24 08:59 1 mg BID LEANDRA Administration Gabapentin 600 mg 11/24/24 22:00 11/26/24 05:17 Gabapentin 300 Mg Capsule PO 12/24/24 21:59 600 mg TID LEANDRA Administration Lorazepam 0.5 mg 11/25/24 08:29 11/25/24 17:44 Lorazepam 2 Mg/Ml Vial IV 11/30/24 08:28 0.5 mg Q2HR PRN Administration CIWA SCORE 7-13 Lorazepam 1 mg 11/25/24 08:29 11/26/24 02:50 Lorazepam 2 Mg/Ml Vial IV 11/30/24 08:28 1 mg Q2HR PRN Administration CIWA SCORE 14-19 Lorazepam 2 mg 11/25/24 08:29 11/26/24 00:45 Lorazepam 2 Mg/Ml Vial IV 11/30/24 08:28 2 mg Q2HR PRN Administration CIWA SCORE 20-25 Lorazepam 2 mg 11/25/24 08:29 Lorazepam 2 Mg/Ml Vial IVP X1 PRN Breakthrough Agitation Lorazepam 0.5 mg 11/25/24 08:29 11/25/24 13:20 Lorazepam 0.5 Mg Tablet PO 11/30/24 08:28 0.5 mg Q4HR PRN Administration CIWA Score 2-6 Moxifloxacin HCl 1 drop 11/24/24 10:00 11/26/24 05:19 Moxifloxacin Op Faby 0.5% 3 Ml Btl RIGHT EYE 12/24/24 09:59 Not Given TID LEANDRA Ondansetron HCl 4 mg 11/24/24 04:57 Ondansetron Inj 2 Mg/Ml Inj 2 Ml IV 12/24/24 04:56 Q6HR PRN NAUSEA OR VOMITING Protocol Thiamine HCl 100 mg 11/24/24 09:00 11/25/24 20:35 Thiamine 100 Mg Tablet PO 11/29/24 08:59 100 mg BID LEANDRA Administration
[2024-11-26] MEDS: Magnesium Sulfate 2 GM Ivpb 2 GM/50 ML BAG IV (07:52)
--- NOTE | 2024-11-26 08:22 | PC.NURSE ---
821 Despite our efforts, Mihai Acuna, has decided to leave against medical advice (AMA). Patient was being treated for alcohol withdrawals, current CIWA is 17. Per CIWA protocol 1mg ativan IVP was to be given, Patient refused. Patient is alert and oriented x4 and capable of making his own decisions regarding his treatment plan. Patient in no distress, on room air, Sinus rhythm 80s. Dr. Carey, Dr. Sigala, Dr. Palmer, and Dr. Estevez at bedside. The patient understands his current diagnosis and the risks of leaving AMA, including but not limited to permanent disability and . Mr. Acuna was given the opportunity to ask questions about his condition. Patient is homeless and has no emergency contact on file. Patient was given education on returning to the hospital for care at any time.
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
== END 2024-11-26 08:22 | disposition left against medical advice (07) | DRG 770 ==
LOC: SERX 18:58 → SERHOLD 21:25 → S2NX 11-24 03:26
PROVIDERS: Physician Assistant; Student in an Organized Health Care Education/Training Program; Admitting Provider Internal Medicine; PCP Family Medicine; Visit Provider Student in an Organized Health Care Education/Training Program
DX: F10.129 Alcohol abuse with intoxication, unspecified (principal); F10.139 Alcohol abuse with withdrawal, unspecified; F41.9 Anxiety disorder, unspecified; F12.10 Cannabis abuse, uncomplicated; Y90.8 Blood alcohol level of 240 mg/100 ml or more; M50.323 Other cervical disc degeneration at C6-C7 level; G31.2 Degeneration of nervous system due to alcohol; D64.89 Other specified anemias; D50.9 Iron deficiency anemia, unspecified; S05.32XA Ocular laceration without prolapse or loss of intraocular tissue, left eye, initial encounter; F17.210 Nicotine dependence, cigarettes, uncomplicated; E83.39 Other disorders of phosphorus metabolism; F20.9 Schizophrenia, unspecified; H10.89 Other conjunctivitis; Z23 Encounter for immunization; Z59.00 Homelessness unspecified; Z79.899 Other long term (current) drug therapy; Z53.29 Procedure and treatment not carried out because of patient's decision for other reasons; Z88.8 Allergy status to other drugs, medicaments and biological substances
CPT/HCPCS: 36415; 70450; 70480; 70486; 72125; 80048; 80053; 80061; 80307; 80320; 83036; 83540; 83550; 83735; 84100; 84443; 85025; 85610; 85730; 86780; 87491; 87591; 87661; 90471; 90714; 92610; 96374; 99285; J2060; J2270; J3411; J3475; J3490; A9270; G0480

== ENCOUNTER 2024-12-08 11:23 | Emergency (ER) | payer MEDICAID, SELFPAY ==
[2024-12-08 11:24] VITALS: BMI 34.8
[2024-12-08 11:47] VITALS: BP 155/80; PULSE 104; RESP 20; TEMP 36.6; O2SAT 99; BMI 35.4
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
--- NOTE | 2024-12-08 11:47 | XR_ITS ---
Examination: Venous duplex lower extremity sonogram, bilateral. Date and time of exam: December 08, 2024 1211 hours INDICATIONS: Patient fell 3 days ago followed by left leg swelling and pain Technique: Multiple sonographic images of the deep venous system have been obtained. B-mode/2-D grayscale imaging of vascular structures and Doppler spectral analysis (waveforms) and color performed Both legs are examined. Findings: Deep venous systems do not demonstrate abnormal echogenicity. All visualized deep veins exhibit compressibility. All visualized deep veins exhibit augmentation. Impression: Negative for deep vein thrombosis
--- NOTE | 2024-12-08 11:48 | PD.EDRME ---
Rapid Medical Screening Exam RME Arrival date/time: 12/08/24 11:23 34-year-old male with history of alcohol abuse last rink yesterday presents emergency today complains of tremors patient also has lower extremity swelling Chief Complaint: Alcohol
[2024-12-08 13:12] LABS: Lactate (Lactic Acid) 1.3 mMol/L (0.4-2.0)
[2024-12-08 13:13] LABS: Basophils # (Auto) 0.1 Thou/mm3 (0.0-0.2); Basophils % (Auto) 1 % (0-2.5); Eosinophils % (Auto) 0 % (0-10); Hemoglobin 13.3 g/dL (13.5-16.0); Immature Granulocytes % (Auto) 1 % (0-0); Immature Granulocytes Auto 0.08 Thou/mm3 (0.00-0.00); Lymphocytes # (Auto) 1.4 Thou/mm3 (1.0-4.8); Lymphocytes % (Auto) 13 % (10-50); Mean Corpuscular Hemoglobin 30.3 pg (25.0-35.0); Mean Corpuscular Volume 87 fL (80-100); Monocytes # (Auto) 0.8 Thou/mm3 (0.0-0.8); Monocytes % (Auto) 7 % (0-12); Neutrophils # (Auto) 8.4 Thou/mm3 (1.8-7.7); Neutrophils % (Auto) 78 % (37-80); Nucleated Red Blood Cell % 0 /100 WBC (0); Platelet Count 255 Thou/mm3 (140-440); Red Blood Count 4.39 Miln/mm3 (4.50-5.90); White Blood Count 10.8 Thou/mm3 (3.8-10.6)
[2024-12-08 13:27] LABS: Sed Rate (ESR) 100 mm/hr (0-15)
[2024-12-08 13:50] LABS: INR 1.1 (0.9-1.3); Partial Thromboplastin Time 30.5 Seconds (22.0-36.0); Prothrombin Time 11.5 Seconds (9.0-12.2)
[2024-12-08 14:07] LABS: Amphetamine/Methamp Scrn,U Negative (Negative); Barbiturate Screen,Urine Negative (Negative); Benzodiazepines Screen,Urine Negative (Negative); Benzoylecgonine Screen, Ur Negative (Negative); Fentanyl Screen,Urine Negative (Negative); Opiate Screen,Urine Negative (Negative); THC Screen,Urine Positive (Negative)
[2024-12-08 14:07] LABS: Alanine Aminotransferase 32 U/L (10-49); Albumin, Serum 3.6 gm/dL (3.5-5.0); Albumin/Globulin Ratio 0.8 (1.2-2.2); Alcohol, Blood Medical < 3.0 mg/dL (0-10.0); Alkaline Phosphatase 166 U/L (46-116); Anion Gap 8 (7-16); Aspartate Amino Transferase 36 U/L (0-34); BUN/Creatinine Ratio 10 Ratio (12-20); Bilirubin,Total 0.7 mg/dL (0.3-1.2); Blood Urea Nitrogen 6 mg/dL (9-23); C-Reactive Protein 6.5 mg/dL (0.0-0.9); Calcium (Corrected) 9.3 mg/dL (8.5-10.1); Carbon Dioxide 27.4 mMol/L (20.0-31.0); Chloride 99 mMol/L (98-107); Creatinine (Component) 0.6 mg/dL (0.6-1.3); Estimated Creatinine Clearance 219.7 mL/min (>60); Globulin 4.7 gm/dL (2.3-3.5); Glucose 102 mg/dL (74-106); Osmolality,Calculated 265 (275-295); Potassium 3.2 mMol/L (3.4-5.1); Procalcitonin 1.63 ng/ml (0.0-0.49); Sodium 134 mMol/L (136-145); Total Protein 8.3 gm/dL (5.7-8.2); eGFR > 60 See Note
[2024-12-08 16:24] VITALS: BP 153/83; PULSE 89; RESP 19; TEMP 37; O2SAT 99
[2024-12-08 17:25] VITALS: BP 141/84; PULSE 100; RESP 18; TEMP 36.7; O2SAT 99
--- NOTE | 2024-12-08 17:37 | EDNOTE_ITS ---
ED General RME/HPI General Chief complaint: Alcohol Stated complaint: ALCOHOL WITHDRAWL, LAC L) KNEE Time Seen by Provider: 12/08/24 17:26 Arrival date/time: 12/08/24 11:23 CC: Tremors and left lower leg swelling HPI patient is an alcoholic, was recently discharged from this house for acute alcohol intoxication. Patient states has not had a drink in 3 days. Patient denies fever chills shortness of breath or difficulty breathing is complaining of upset stomach. Patient is ill kempt but speaking in full sentences with direct eye contact. No hand tremens when engaged in a focused conversation. RME / HPI RME / HPI narrative: 12/08/24 11:23 34-year-old male with history of alcohol abuse last rink yesterday presents emergency today complains of tremors patient also has lower extremity swelling Related Data Home Medications ?Medication ?Instructions ?Recorded ?Confirmed gabapentin 600 mg tablet 600 mg PO TID 11/24/2411/24 quetiapine 300 mg tablet (Seroquel) 600 mg PO HS 11/2411/24/24 Held on 11/26/24. Instructions: hold until seen by pcp Previous Rx's ?Medication ?Instructions ?Recorded cephalexin 500 mg capsule 500 mg PO BID #14 caps 12/08 gabapentin 300 mg capsule 300 mg PO BID #14 caps 12/08 Allergies Allergy/AdvReac Type Severity Reaction Status Date / Time ketorolac Allergy Intermediate ITCHING Verified 12/08/24 11:27 Review of Systems Review of Systems Narrative Review of Systems: GEN: No fever, no chills, no weight loss EYES: No discharge, no visual changes, no pain HEENT: No ear pain, no congestion, no sore throat PULM: No shortness of breath, no cough, no congestion CV: No chest pain, no dyspnea on exertion, no palpitations GI: No nausea, no vomiting, no diarrhea, no pain, no constipation : No frequency, no urgency, no dysuria MUSC/SKEL: No joint pain, no back pain SKIN: No rash PSYCH: No hallucinations, no depression HEME/LYMPH: No easy bleeding or bruising tendencies NEURO: No weakness, no headache Past Medical History Past Medical History NEUROLOGIC: Negative Neurological Disorders CARDIAC: Positive Cardiac Disorders, Hypercholesterolemia and Hypertension; Negative Congestive Heart Failure RESPIRATORY: Positive Chronic Obstructive Pulmonary Disease (COPD); Negative Asthma GASTROINTESTINAL: Negative Gastrointestinal Disorders GENITOURINARY: Negative Genitourinary Disorders or Renal Disease MUSCULOSKELETAL: Positive Musculoskeletal Disorders ENDOCRINE: Negative Endocrine Disorders, Diabetes Mellitus Type 1 or Diabetes Mellitus Type 2 HEMATOLOGIC: Negative Blood Disorders or Sickle Cell Disease PSYCHO/SOCIAL: Positive Psychiatric Problems, Schizophrenia, Depression and Anxiety OTHER HISTORY: Positive Hospitalization and Chicken Pox; Negative Autoimmune Disease, Down Syndrome, Developmental Delay, Shingles, Falls, Blood Transfusions or Anesthesia Reactions Family History FAMILY HISTORY: Positive Family Cancer Social History SMOKING STATUS: Current every day smoker SUBSTANCE USE: former substance user ED Exam Narrative Physical exam: [General: Obese not in acute acute distress Head normocephalic HEENT: Eyes pupils but reactive within acceptable limits Neck is supple nontender Chest equal chest rise nontender to palpation Respiratory: Clear to auscultation no wheezes crackles or rubs CV: Rate rhythm is regular no murmurs rubs or clicks Abdomen is distended secondary to body habitus soft nontender no masses positive bowel sounds all 4 quadrants Back: No CVA tenderness no spinous process tenderness from cervical spine thoracic and lumbar spine Skin: Other than below, skin is intact no petechiae rash induration ulceration or crepitus Extremities: Left lower extremity edematous mildly tender to palpation, no erythema not warm to touch. There is an 3-day-old laceration to the lateral aspect of the skin skin overlying the right patella. No sound surrounding erythema, it is crusted and scabbed. No exudate nontender to touch. No other open lesions indurations or ulcerations. Moving all other extremities against resistance cap refill less than 2 seconds neurosensory intact Neuro: Awake alert oriented x3 Glascow coma 15 no focal deficits] Course Quality Measures none Orders Category Date Time Status Insert IV NOW Care 12/08/24 11:48 Active US venous doppler LE BI Stat Exams 12/08/24 11:47 Completed XR tibia fibula LT 2V Stat Exams 12/08/24 11:47 Completed Alcohol, Blood Medical Stat Lab 12/08/24 12:51 Completed Blood Culture (Lab) Stat Lab 12/08/24 12:40 Received CBC Stat Lab 12/08/24 12:51 Completed CMP [Comprehensive Metabolic Panel] Stat Lab 12/08/24 12:51 Completed CRP [C-Reactive Protein] Stat Lab 12/08/24 12:51 Completed Drug Screen,Urine Stat Lab 12/08/24 13:18 Completed ESR [Sed Rate (ESR)] Stat Lab 12/08/24 12:51 Completed Lactic Acid [Lactate (Lactic Acid)] Stat Lab 12/08/24 12:51 Completed PT [Prothrombin Time with INR] Stat Lab 12/08/24 12:51 Completed PTT [Partial Thromboplastin Time] Stat Lab 12/08/24 12:51 Completed Procalcitonin Stat Lab 12/08/24 12:51 Completed Vital Signs Vital signs: Vital Signs Temperature 97.9 F 12/08/24 11:47 Pulse Rate 104 H 12/08/24 11:47 Respiratory Rate 20 12/08/24 11:47 Blood Pressure 155/80 H 12/08/24 11:47 Pulse Oximetry (%) 99 12/08/24 11:47 Oxygen Delivery Method Room Air 12/08/24 11:47 Procedures -ED Procedure Comment Left eyelid suture removal, 7 sutures been removed without complication patient tolerated procedure well. MDM Patient data External records reviewed:: [facility] previous records Clinical information provided by:: patient Social determinants that could affect healthcare access:: none Patient has the following chronic illnesses:: Alcohol abuse chronic How is presenting disease/condition affected by chronic disease/condition?: c aused by Evaluation data The following diagnostics were reviewed and interpreted by me:: lab results and radiology exam(s) Lab and/or radiology exams considered but not ordered:: CBC shows a leukocytosis of 10.8 H&H of 13.3 and 38.0. Platelets of 255. ESR 100 Coags within acceptable limits Sodium 134 potassium 3.2 BUN of 6 no other electrolyte imbalances mild transaminitis with an AST of 36 alk phos of 166 ALT at 32 no T. bili elevation. CRP at 6.5. Pro-Zeke at 1.63 Ultrasound of the left leg shows no DVT. Interpretation Summary: Patient is not tachycardic at the time of the exam, at this time the patient is not in acute alcohol withdrawal patient will be discharged with antibiotics for his left knee laceration which is not repairable. He is to follow-up with primary care provider. Medications Medications considered but not ordered:: None Medication administrations:: None Consultations Consultation(s) initiated? (list below): No Diagnosis Differential Diagnosis ED Complaint MDM: Suture removal leg laceration alcohol withdrawal Most likely diagnosis given after review of the tests above:: Suture removal leg laceration alcohol withdrawal Admission Indicated Admission indicated?: not indicated Explain why admission is indicated or not indicated:: Stable for outpatient follow-up Admission Request Was there a request for admission?: No Disposition Plan Disposition Plan: Discharge Discharge Attestation Discharge Attestation: The patient and all family members were given an opportunity to ask questions and understood the discharge instructions. Discharge instructions specifically effects, indications for sooner follow up or return to the emergency department, and the expected course of current diagnosis. Patient condition: Stable Medical Decision Making Differential Diagnosis Differential Diagnosis: Suture removal leg laceration alcohol withdrawal Lab Data 12/08/24 12:51 12/08/24 12:51 Labs: Lab Results 12/08/24 12/08/24 Range/Units 12:51 13:18 WBC 10.8 H (3.8-10.6) Thou/mm3 RBC 4.39 L (4.50-5.90) Miln/mm3 Hgb 13.3 L (13.5-16.0) g/dL Hct 38.0 L (41.0-53.0) % MCV 87 (80-100) fL MCH 30.3 (25.0-35.0) pg MCHC 35.0 (31.0-37.0) g/dl RDW Std Deviation 49.0 H (35.1-43.9) fL Plt Count 255 (140-440) Thou/mm3 Neut % (Auto) 78 (37-80) % Lymph % (Auto) 13 (10-50) % Stanley % (Auto) 7 (0-12) % Eos % (Auto) 0 (0-10) % Baso % (Auto) 1 (0-2.5) % Neut # (Auto) 8.4 H (1.8-7.7) Thou/mm3 Lymph # (Auto) 1.4 (1.0-4.8) Thou/mm3 Stanley # (Auto) 0.8 (0.0-0.8) Thou/mm3 Eos # (Auto) 0.0 (0.0-0.5) Thou/mm3 Baso # (Auto) 0.1 (0.0-0.2) Thou/mm3 Immature Gran # (Auto) 0.08 H (0.00-0.00) Thou/mm3 Absolute Nucleated RBC 0.00 (0.00-0.00) Thou/mm3 Immature Gran % 1 H (0-0) % Nucleated RBC % 0 (0) /100 WBC ESR 100 H (0-15) mm/hr PT 11.5 (9.0-12.2) Seconds INR 1.1 (0.9-1.3) APTT 30.5 (22.0-36.0) Seconds Sodium 134 L (136-145) mMol/L Potassium 3.2 L (3.4-5.1) mMol/L Chloride 99 (98-107) mMol/L Carbon Dioxide 27.4 (20.0-31.0) mMol/L Anion Gap 8 (7-16) BUN 6 L (9-23) mg/dL Creatinine 0.6 (0.6-1.3) mg/dL Estim Creat Clear Calc 219.7 (>60) mL/min eGFR > 60 (60 - ) See Note BUN/Creatinine Ratio 10 L (12-20) Ratio Glucose 102 (74-106) mg/dL Calculated Osmolality 265 L (275-295) Lactic Acid 1.3 (0.4-2.0) mMol/L Calcium 9.0 (8.3-10.6) mg/dL Corrected Calcium 9.3 (8.5-10.1) mg/dL Total Bilirubin 0.7 (0.3-1.2) mg/dL AST 36 H (0-34) U/L ALT 32 (10-49) U/L Alkaline Phosphatase 166 H (46-116) U/L C-Reactive Prot, Quant 6.5 H (0.0-0.9) mg/dL Total Protein 8.3 H (5.7-8.2) gm/dL Albumin 3.6 (3.5-5.0) gm/dL Globulin 4.7 H (2.3-3.5) gm/dL Albumin/Globulin Ratio 0.8 L (1.2-2.2) Procalcitonin 1.63 H (0.0-0.49) ng/ml Urine Opiates Screen Negative (Negative) Urine Fentanyl Screen Negative (Negative) Ur Barbiturates Screen Negative (Negative) U Amphetamin/Meth Scrn Negative (Negative) U Benzodiazepines Scrn Negative (Negative) U Cocaine Metab Screen Negative (Negative) U Marijuana (THC) Screen Positive A (Negative) Ethyl Alcohol < 3.0 (0-10.0) mg/dL Discharge Plan Plan Patient Disposition: HOME (Self Care) Patient condition on transfer: Stable Prescriptions/Referrals Prescriptions/Med Rec: New cephalexin 500 mg capsule 500 mg PO BID Qty: 14 0RF gabapentin 300 mg capsule 300 mg PO BID Qty: 14 0RF No Action gabapentin 600 mg tablet 600 mg PO TID quetiapine [Seroquel] 300 mg tablet 600 mg PO HS Referrals: Jaime Do MD [Physician] - In 1 week No Primary/Family,Physician [Primary Care Provider] - In 1 week Problem List Clinical Impression: Leg laceration, Encounter for removal of sutures, Alcohol withdrawal, Laceration Patient/Caregiver Discharge Instructions Education Materials: Social Drinking vs Problem Drinking, ED Stitches/Staple Removal No ... Print Language: Maltese Stand Alone Forms: Raisa Award Info., Work/School Release, Patient Portal Info Letter PA/WILFREDO Supervising Physician PA/WILFREDO Supervising Physician: Lucas Cortez ENP
== END 2024-12-08 18:15 | disposition home or self-care (01) ==
PROVIDERS: Nurse Practitioner Primary Care; Emergency Provider Family Medicine
DX: S01.112D Laceration without foreign body of left eyelid and periocular area, subsequent encounter (principal); S81.012D Laceration without foreign body, left knee, subsequent encounter; M79.89 Other specified soft tissue disorders; D72.829 Elevated white blood cell count, unspecified; F10.139 Alcohol abuse with withdrawal, unspecified; Y90.0 Blood alcohol level of less than 20 mg/100 ml; W19.XXXD Unspecified fall, subsequent encounter
CPT/HCPCS: 36415; 73590; 80053; 80307; 80320; 83605; 84145; 85025; 85610; 85652; 85730; 86140; 87040; 87077; 87186; 93970; 99284; G0480

== ENCOUNTER 2025-03-19 16:30 | Emergency (ER) | payer MEDICAID, SELFPAY ==
--- NOTE | 2025-03-19 16:31 | PD.EDSEIZ ---
ED Seizures RME/HPI General Chief Complaint: Seizure Stated Complaint: SEIZURE Time Seen by Provider: 03/19/25 16:33 Arrival date/time: 03/19/25 16:30 Limitations: no limitations RME / HPI RME / HPI Narrative: DR. SCHWARTZ MAIN ED EVALUATION: 35 year old male with past medical history significant for seizures, alcoholism, homelessness, and substance abuse presents to the Emergency Department [facility] with complaint of seizure prior to arrival. Patient states he has seizures daily. He drinks daily, today had 1 pint of alcohol. Other symptoms mentioned are discoloration of his left leg. Related Data Home Medications ?Medication ?Instructions ?Recorded ?Confirmed gabapentin 600 mg tablet 600 mg PO TID 11/24/24 11/24/24 quetiapine 300 mg tablet (Seroquel) 600 mg PO HS 11/24/24 11/24/24 Held on 11/26/24. Instructions: hold until seen by pcp Previous Rx's ?Medication ?Instructions ?Recorded cephalexin 500 mg capsule 500 mg PO BID #14 caps 12/08/24 gabapentin 300 mg capsule 300 mg PO BID #14 caps 12/08/24 levetiracetam 500 mg tablet 500 mg PO BID seizure disorder #60 03/19/25 (Keppra) tabs Allergies Allergy/AdvReac Type Severity Reaction Status Date / Time ketorolac Allergy Intermediate ITCHING Verified 03/19/25 16:52 Review of Systems Review of Systems Systems Reviewed: All systems reviewed, normal except as documented Past Medical History Past Medical History CARDIAC: Positive Cardiac Disorders, Hypercholesterolemia and Hypertension MUSCULOSKELETAL: Positive Musculoskeletal Disorders PSYCHO/SOCIAL: Positive Psychiatric Problems, Schizophrenia, Depression and Anxiety OTHER HISTORY: Positive Hospitalization and Chicken Pox Family History FAMILY HISTORY: Positive Family Cancer Social History SMOKING STATUS: Current every day smoker SUBSTANCE USE: former substance user ALCOHOL: Current ED Exam General Limitations: Present no limitations General appearance: Present alert and in no apparent distress Head Head exam: Present atraumatic, normocephalic and normal inspection Eye Eye exam: Present normal appearance, PERRL and EOMI ENT ENT exam: Present normal exam, normal oropharynx and mucous membranes moist Neck Neck exam: Present normal inspection, full ROM and trachea midline Chest Chest inspection: Present normal inspection and symmetric chest wall rise Respiratory Respiratory exam: Present normal lung sounds bilaterally Cardiovascular Cardiovascular exam: Present regular rate, normal rhythm and normal heart sounds Abdominal Exam Abdominal exam: Present soft and normal bowel sounds Extremities Exam Extremities exam: Present full ROM and other (discoloration of the left leg) Back Exam Back exam: Present normal inspection and full ROM Neurological Exam Neurological exam: Present alert, oriented X3 and CN II-XII intact Psychiatric Psychiatric exam: Present normal affect and normal mood Skin Skin exam: Present warm, dry, intact and other Course Quality Measures none Orders Category Date Time Status Rn Charge NOW Care 03/19/25 16:34 Active Continuous Pulse Oximetry NOW Care 03/19/25 16:34 Completed EKG (ED ONLY) *Do not use* NOW Care 03/19/25 16:34 Completed Insert IV NOW Care 03/19/25 16:34 Active EKG (ED Only) Stat Exams 03/19/25 16:34 Draft Alcohol, Blood Medical Stat Lab 03/19/25 14:43 Completed CBC Stat Lab 03/19/25 14:43 Completed Comprehensive Metabolic Panel Stat Lab 03/19/25 14:43 Completed Partial Thromboplastin Time Stat Lab 03/19/25 14:43 Completed Prothrombin Time with INR Stat Lab 03/19/25 14:43 Completed Troponin I Stat Lab 03/19/25 14:43 Completed Urinalysis Stat Lab 03/19/25 16:34 Ordered Sodium Chloride 0.9% 1000 ml [Ns] 1,000 ml Med 03/19/25 16:34 Active IV 100 mls/hr levETIRAcetam INJ [Keppra Inj] Med 03/19/25 16:34 Discontinued 1,000 mg IVP X1 ONE Vital Signs Vital signs: Vital Signs Temperature 99.0 F 03/19/25 16:43 Pulse Rate 112 H 03/19/25 16:43 Respiratory Rate 19 03/19/25 16:43 Blood Pressure 140/88 H 03/19/25 16:43 Pulse Oximetry (%) 91 L 03/19/25 16:43 Oxygen Delivery Method Room Air 03/19/25 16:43 Seizure MDM Narrative MDM Narrative:: IBettina am scribing for and in the presence of Dr. Schwartz. Patient data External records reviewed:: [facility] previous records and EMS form Clinical information provided by:: patient and EMS Social determinants that could affect healthcare access:: substance use Patient has the following chronic illnesses:: Seizures, alcoholism, homelessness, and substance abuse. How is presenting disease/condition affected by chronic disease/condition?: caused by Evaluation data The following diagnostics were reviewed and interpreted by me:: lab results and EKG tracing(s) Lab and/or radiology exams considered but not ordered:: none Interpretation Summary: My interpretation: EKG performed at 1636 hours, sinus tachycardia, rate 110, no acute changes, no STEMI Medications / Prescriptions Medications or Prescriptions considered but not ordered:: none Medication administrations:: Medication Administration History Sodium Chloride (Ns) 1,000 mls @ 100 mls/hr IV .Q10H ONE Stop: 03/20/25 02:33 Last Admin: 03/19/25 17:13 Dose: 100 mls/hr Documented By: CG Discontinued Medications Levetiracetam (Levetiracetam Inj 100 Mg/Ml Vial 5ml) 1,000 mg IVP X1 ONE Stop: 03/19/25 16:35 Last Admin: 03/19/25 17:20 Dose: 1,000 mg Documented By: CG see above Consultations Consultation(s) initiated? (list below): No Diagnosis Seizure Differential Diagnosis: intractable seizure disorder, focal seizure, generalized seizure and other (alcohol abuse, alcohol seizure) Most likely diagnosis given after review of the tests above:: Alcoholism Seizure disorder Admission Indicated Admission indicated?: not indicated Admission Request Was there a request for admission?: No Disposition Plan Disposition Plan: Discharge Discharge Attestation Discharge Attestation: The patient and all family members were given an opportunity to ask questions and understood the discharge instructions. Discharge instructions specifically effects, indications for sooner follow up or return to the emergency department, and the expected course of current diagnosis. Patient condition: Stable Discharge Plan Plan Patient Disposition: HOME (Self Care) Patient condition on transfer: Stable Prescriptions/Referrals Prescriptions/Med Rec: New levetiracetam [Keppra] 500 mg tablet 500 mg PO BID MDD 2 Qty: 60 0RF No Action gabapentin 600 mg tablet 600 mg PO TID quetiapine [Seroquel] 300 mg tablet 600 mg PO HS cephalexin 500 mg capsule 500 mg PO BID Qty: 14 0RF gabapentin 300 mg capsule 300 mg PO BID Qty: 14 0RF Referrals: No Primary/Family,Physician [Primary Care Provider] - In 1 week Donta Estevez MD [Physician] - 03/21/25 Problem List Clinical Impression: Alcoholism, Seizure disorder Patient/Caregiver Discharge Instructions Additional Instructions: Please follow-up with Dr. Estevez within 2-3 days. Return to the Emergency Department as needed. Print Language: Belarusian Stand Alone Forms: Raisa Award Info., Patient Portal Info Letter
--- NOTE | 2025-03-19 16:34 | EKG_ITS ---
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
[2025-03-19 16:42] VITALS: BMI 34.5
[2025-03-19 16:43] VITALS: BP 140/88; PULSE 112; RESP 19; TEMP 37.2; O2SAT 91
[2025-03-19 16:54] LABS: Basophils # (Auto) 0.0 Thou/mm3 (0.0-0.2); Basophils % (Auto) 0 % (0-2.5); Eosinophils # (Auto) 0.0 Thou/mm3 (0.0-0.5); Eosinophils % (Auto) 0 % (0-10); Hematocrit 39.5 % (41.0-53.0); Hemoglobin 13.9 g/dL (13.5-16.0); Immature Granulocytes Auto 0.01 Thou/mm3 (0.00-0.00); Lymphocytes # (Auto) 1.5 Thou/mm3 (1.0-4.8); Lymphocytes % (Auto) 28 % (10-50); Mean Corpuscular HGB Conc 35.2 g/dl (31.0-37.0); Mean Corpuscular Hemoglobin 30.7 pg (25.0-35.0); Mean Corpuscular Volume 87 fL (80-100); Monocytes # (Auto) 0.4 Thou/mm3 (0.0-0.8); Monocytes % (Auto) 7 % (0-12); Neutrophils # (Auto) 3.4 Thou/mm3 (1.8-7.7); Neutrophils % (Auto) 64 % (37-80); Nucleated Red Blood Cell # 0.00 Thou/mm3 (0.00-0.00); Nucleated Red Blood Cell % 0 /100 WBC (0); Platelet Count 109 Thou/mm3 (140-440); RDW Standard Deviation 51.6 fL (35.1-43.9); Red Blood Count 4.53 Miln/mm3 (4.50-5.90); White Blood Count 5.3 Thou/mm3 (3.8-10.6)
[2025-03-19] MEDS: SODIUM CHLORIDE 0.9% 1000 ML 1,000 ML 100 ML IV (17:13)
[2025-03-19] MEDS: levETIRAcetam INJ 100 MG/ML VIAL 5ML 1000 MG IVP (17:20)
[2025-03-19 17:24] LABS: INR 1.0 (0.9-1.3); Partial Thromboplastin Time 26.6 Seconds (22.0-36.0); Prothrombin Time 11.2 Seconds (9.0-12.2)
[2025-03-19 17:25] LABS: Alanine Aminotransferase 113 U/L (10-49); Albumin, Serum 3.7 gm/dL (3.5-5.0); Albumin/Globulin Ratio 1.0 (1.2-2.2); Alcohol, Blood Medical 120.4 mg/dL (0-10.0); Alkaline Phosphatase 169 U/L (46-116); Anion Gap 16 (7-16); Aspartate Amino Transferase 143 U/L (0-34); BUN/Creatinine Ratio 8 Ratio (12-20); Bilirubin,Total 0.5 mg/dL (0.3-1.2); Blood Urea Nitrogen < 5 mg/dL (9-23); Calcium 8.5 mg/dL (8.3-10.6); Calcium (Corrected) 8.7 mg/dL (8.5-10.1); Carbon Dioxide 21.5 mMol/L (20.0-31.0); Chloride 102 mMol/L (98-107); Creatinine (Component) 0.6 mg/dL (0.6-1.3); Estimated Creatinine Clearance 215.0 mL/min (>60); Globulin 3.8 gm/dL (2.3-3.5); Glucose 97 mg/dL (74-106); Osmolality,Calculated 274 (275-295); Potassium 3.0 mMol/L (3.4-5.1); Sodium 139 mMol/L (136-145); Total Protein 7.5 gm/dL (5.7-8.2); Troponin I < 0.020 ng/mL (0.0-0.045); eGFR > 60 See Note
[2025-03-19 18:02] VITALS: BP 115/66; PULSE 92; RESP 16; TEMP 37.2; O2SAT 95
== END 2025-03-19 18:00 | disposition home or self-care (01) ==
PROVIDERS: Emergency Provider Family Medicine
DX: G40.909 Epilepsy, unspecified, not intractable, without status epilepticus (principal); F10.20 Alcohol dependence, uncomplicated; Y90.6 Blood alcohol level of 120-199 mg/100 ml; R00.0 Tachycardia, unspecified
CPT/HCPCS: 36415; 80053; 80320; 81001; 84484; 85025; 85610; 85730; 93005; 96361; 96374; 99283; J1953; J7030; G0480

== ENCOUNTER 2025-04-21 15:04 | Emergency (ER) | payer MEDICAID, SELFPAY ==
[2025-04-21 15:15] VITALS: BP 124/84; PULSE 116; RESP 18; TEMP 37; O2SAT 96; BMI 34.4
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
--- NOTE | 2025-04-21 15:20 | EKG_ITS ---
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
--- NOTE | 2025-04-21 15:20 | XR_ITS ---
Examination:Left hip AP, lateral, AP pelvis 3 views Technique: Hip AP lateral, AP pelvis, 3 views Exam date and time:April 21, 2025 1545 hours INDICATIONS: Left hip pain beginning one week ago. FINDINGS: No left hip fracture or dislocation No avascular necrosis No significant hip arthritic change IMPRESSION: No significant hip arthritic change.
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
[2025-04-21 16:49] LABS: Basophils # (Auto) 0.0 Thou/mm3 (0.0-0.2); Basophils % (Auto) 0 % (0-2.5); Eosinophils # (Auto) 0.0 Thou/mm3 (0.0-0.5); Eosinophils % (Auto) 0 % (0-10); Hematocrit 40.9 % (41.0-53.0); Hemoglobin 14.1 g/dL (13.5-16.0); Immature Granulocytes Auto 0.03 Thou/mm3 (0.00-0.00); Lymphocytes # (Auto) 1.8 Thou/mm3 (1.0-4.8); Lymphocytes % (Auto) 22 % (10-50); Mean Corpuscular HGB Conc 34.5 g/dl (31.0-37.0); Mean Corpuscular Hemoglobin 32.3 pg (25.0-35.0); Mean Corpuscular Volume 94 fL (80-100); Monocytes # (Auto) 0.5 Thou/mm3 (0.0-0.8); Monocytes % (Auto) 7 % (0-12); Neutrophils # (Auto) 5.7 Thou/mm3 (1.8-7.7); Neutrophils % (Auto) 70 % (37-80); Nucleated Red Blood Cell # 0.00 Thou/mm3 (0.00-0.00); Nucleated Red Blood Cell % 0 /100 WBC (0); Platelet Count 140 Thou/mm3 (140-440); RDW Standard Deviation 56.5 fL (35.1-43.9); Red Blood Count 4.37 Miln/mm3 (4.50-5.90); White Blood Count 8.1 Thou/mm3 (3.8-10.6)
[2025-04-21 16:53] LABS: B-Type Natriuretic Peptide 60 pg/mL (0-100)
[2025-04-21 16:54] LABS: INR 0.9 (0.9-1.3); Partial Thromboplastin Time 28.9 Seconds (22.0-36.0); Prothrombin Time 10.4 Seconds (9.0-12.2)
[2025-04-21 16:55] LABS: Alanine Aminotransferase 115 U/L (10-49); Albumin, Serum 4.6 gm/dL (3.5-5.0); Albumin/Globulin Ratio 1.2 (1.2-2.2); Alkaline Phosphatase 195 U/L (46-116); Anion Gap 12 (7-16); Aspartate Amino Transferase 205 U/L (0-34); BUN/Creatinine Ratio 10 Ratio (12-20); Bilirubin,Total 1.3 mg/dL (0.3-1.2); Blood Urea Nitrogen 6 mg/dL (9-23); Calcium 9.8 mg/dL (8.3-10.6); Calcium (Corrected) 9.8 mg/dL (8.5-10.1); Carbon Dioxide 27.5 mMol/L (20.0-31.0); Chloride 99 mMol/L (98-107); Creatinine (Component) 0.6 mg/dL (0.6-1.3); Estimated Creatinine Clearance 208.3 mL/min (>60); Globulin 3.9 gm/dL (2.3-3.5); Glucose 82 mg/dL (74-106); Magnesium 1.6 mg/dL (1.6-2.6); Osmolality,Calculated 272 (275-295); Potassium 3.6 mMol/L (3.4-5.1); Sodium 138 mMol/L (136-145); Total Protein 8.5 gm/dL (5.7-8.2); Troponin I < 0.002 ng/mL (0.0-0.045); eGFR > 60 See Note
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
[2025-04-21] MEDS: HYDROcodone/APAP 5/325 TABLET 1 TAB PO (18:12)
--- NOTE | 2025-04-21 18:33 | PC.CC ---
Addendum entered by Rodrigo Siddiqi RN 04/21/25 19:13: 1912: Mindy saeed/ [facility] called to f/u on transfer request. Informed pt has not been accepted. Requested to speak to JAVIER Sanchez, call transferred. Transfer packet w/ 1 CD given to ED Charge Case. Addendum entered by Rodrigo Siddiqi RN 04/21/25 18:58: transfer packet w/ 1 CD created and will take to ED charge nurse Original Note: 1820: transfer request initiated with [facility] Muhammad and [facility] TC. Clinicals and imaging sent to [facility]. Michaela saeed/ [facility] spoke to JAVIER Parekh. Michaela stated clinicals and images will be reviewed and call back.
[2025-04-21 19:20] VITALS: BP 164/54; PULSE 104; RESP 22; TEMP 36.3; O2SAT 96
[2025-04-21 20:00] LABS: Amphetamine/Methamp Scrn,U Negative (Negative); Barbiturate Screen,Urine Negative (Negative); Benzodiazepines Screen,Urine Positive (Negative); Benzoylecgonine Screen, Ur Negative (Negative); Fentanyl Screen,Urine Negative (Negative); Opiate Screen,Urine Positive (Negative); THC Screen,Urine Positive (Negative)
== END 2025-04-21 22:07 | disposition home or self-care (01) ==
PROVIDERS: Nurse Practitioner Primary Care; Emergency Provider Family Medicine; PCP Family Medicine
DX: S02.652A Fracture of angle of left mandible, initial encounter for closed fracture (principal); S02.602A Fracture of unspecified part of body of left mandible, initial encounter for closed fracture; S02.2XXA Fracture of nasal bones, initial encounter for closed fracture; M54.2 Cervicalgia; S09.90XA Unspecified injury of head, initial encounter; S39.92XA Unspecified injury of lower back, initial encounter; R07.9 Chest pain, unspecified; M25.552 Pain in left hip; R00.0 Tachycardia, unspecified; Y09 Assault by unspecified means; Z59.00 Homelessness unspecified
CPT/HCPCS: 36415; 70450; 70486; 71046; 72125; 72131; 73502; 80053; 80307; 83735; 83880; 84484; 85025; 85610; 85730; 93005; 99284; A9270

== ENCOUNTER 2025-07-15 01:26 | Inpatient (IN) | payer MEDICAID, SELFPAY ==
[2025-07-15] VITALS (9 sets, daily range): BP systolic 127–148; BP diastolic 70–98; PULSE 67–123; RESP 11–23; TEMP 36.2–37.3; O2SAT 93–98; BMI 30.5; BMI 31.8
--- NOTE | 2025-07-15 01:40 | EDNOTE_ITS ---
ED Alcohol RME/HPI General Chief Complaint: Alcohol Stated Complaint: IM GOING THROUGH ALCOHOL WITHDRAWL Time Seen by Provider: 07/15/25 01:36 Arrival date/time: 07/15/25 01:26 RME / HPI RME / HPI narrative: Dr. Toro?s Main ED Evaluation: 35yo male with a history of schizophrenia, HTN, HLD presents to the ED for a chief complaint of alcohol withdrawal. Patient admits to recently using methamphetamines. He does not endorse when the last time he drank alcohol was. History is limited due to the patient being a poor historian. Related Data Home Medications ?Medication ?Instructions ?Recorded ?Confirmed gabapentin 600 mg tablet 600 mg PO TID 11/24/2411/24 quetiapine 300 mg tablet (Seroquel) 600 mg PO HS 11/2411/24/24 Held on 11/26/24. Instructions: hold until seen by pcp Previous Rx's ?Medication ?Instructions ?Recorded cephalexin 500 mg capsule 500 mg PO BID #14 caps 12/08 gabapentin 300 mg capsule 300 mg PO BID #14 caps 12/08 levetiracetam 500 mg tablet 500 mg PO BID seizure diso rder #60 03/19/25 (Keppra) tabs acetaminophen 325 mg tablet 650 mg (2 x 325 mg) PO QID PRN 04/21/25 (Tylenol) pain #60 tabs Allergies Allergy/AdvReac Type Severity Reaction Status Date / Time ketorolac Allergy Intermediate ITCHING Verified 04/21/25 15:09 Review of Systems Review of Systems ROS Unobtainable: other (limited due to the patient being a poor historian) Past Medical History Past Medical History NEUROLOGIC: Positive Seizures (ETOH. No other SZ. Todays sz occured 1-2 minutes after drinking a pint of); Negative Neurological Disorders CARDIAC: Positive Cardiac Disorders, Hypercholesterolemia and Hypertension; Negative Congestive Heart Failure RESPIRATORY: Positive Chronic Obstructive Pulmonary Disease (COPD); Negative Asthma GASTROINTESTINAL: Negative Gastrointestinal Disorders GENITOURINARY: Negative Genitourinary Disorders or Renal Disease MUSCULOSKELETAL: Positive Musculoskeletal Disorders ENDOCRINE: Negative Endocrine Disorders, Diabetes Mellitus Type 1 or Diabetes Mellitus Type 2 HEMATOLOGIC: Negative Blood Disorders or Sickle Cell Disease PSYCHO/SOCIAL: Positive Psychiatric Problems, Schizophrenia, Depression and Anxiety OTHER HISTORY: Positive Hospitalization and Chicken Pox; Negative Autoimmune Disease, Down Syndrome, Developmental Delay, Shingles, Falls, Blood Transfusions or Anesthesia Reactions Family History FAMILY HISTORY: Positive Family Cancer Social History SMOKING STATUS: Never smoker SUBSTANCE USE: former substance user ED Exam Narrative Physical exam: Generally patient is alert and anxious and a poor historian, heart regular rate and rhythm, lungs clear to auscultation equal bilaterally, abdomen soft without distention, neurologic exam showed the patient to be anxious with tremors without focal motor deficits. Patient obeys commands., Skin is warm and dry, extremities show chronic bilateral lower extremity symmetrical lymphedema Course Quality Measures none Orders Category Date Time Status EKG (ED ONLY) *Do not use* NOW Care 07/15/25 01:42 Completed EKG (ED Only) Stat Exams 07/15/25 01:42 Ordered Alcohol, Blood Medical Stat Lab 07/15/25 02:00 Completed CBC Stat Lab 07/15/25 02:00 Completed CMP [Comprehensive Metabolic Panel] Stat Lab 07/15/25 02:00 Completed Drug Screen,Urine Stat Lab 07/15/25 02:00 Completed Ondansetron Inj [Zofran Inj] Med 07/15/25 02:07 Discontinued 4 mg IVP X1 ONE PHENobarbital Inj 260 mg Med 07/15/25 01:40 Discontinued Sodium Chloride 0.9% Flush [NS Flush] 12 ml IVP X1 PHENobarbital Inj 260 mg Med 07/15/25 02:06 Discontinued Sodium Chloride 0.9% Flush [NS Flush] 12 ml IVP X1 Vital Signs Vital signs: Vital Signs Temperature 97.8 F 07/15/25 01:40 Pulse Rate 116 H 07/15/25 01:40 Respiratory Rate 22 H 07/15/25 01:40 Blood Pressure 136/70 H 07/15/25 01:40 Pulse Oximetry (%) 96 07/15/25 01:40 Oxygen Delivery Method Room Air 07/15/25 01:40 Critical Care Time Critical Care Time Critical Care Time: Yes Total Critical Care Time (min.): 35 Attestation: Excluding other billable procedures Discharge Plan Plan Patient Disposition: Admit Acute Care w/in Hospital Prescriptions/Referrals Prescriptions/Med Rec: No Action gabapentin 600 mg tablet 600 mg PO TID quetiapine [Seroquel] 300 mg tablet 600 mg PO HS cephalexin 500 mg capsule 500 mg PO BID Qty: 14 0RF gabapentin 300 mg capsule 300 mg PO BID Qty: 14 0RF levetiracetam [Keppra] 500 mg tablet 500 mg PO BID MDD 2 Qty: 60 0RF acetaminophen [Tylenol] 325 mg tablet 650 mg PO QID PRN (Reason: pain) Qty: 60 0RF Problem List Clinical Impression: Alcohol withdrawal Patient/Caregiver Discharge Instructions Print Language: Divehi Stand Alone Forms: Raisa Award Info., Patient Portal Info Letter Alcohol [facility] Narrative MDM Narrative: Scribe Attestation: 07/15/25 - Fanny Martini am scribing for and in the presence of Dr. Toro. For his probable alcohol withdrawal the patient received phenobarbital 260 mg IV x 2 as well as Zofran 4 mg IV. EKG showed normal sinus rhythm at a rate of 89 but with artifact. No obvious ST segment elevations or depressions. Patient had improvement. He is not tachycardic or hyperthermic. When you wake him up from sleep he becomes tremulous however. Patient is homeless. Patient has received phenobarbital for his alcohol withdrawal. Phenobarbital is a very long half-life. Patient will require admission in the hospital for further treatment and evaluation. I do not believe this patient to be in delirium tremens at this time. I discussed this case with the hospitalist and the patient will be admitted to the hospital for further treatment and evaluation. Patient data External records reviewed:: [facility] previous records (Per chart review, patient was seen here on 03/19/25 for alcoholism.) Clinical information provided by:: patient Social determinants that could affect healthcare access:: substance use (alcohol and methamphetamine use) Patient has the following chronic illnesses:: schizophrenia, HTN, HLD How is presenting disease/condition affected by chronic disease/condition?: uneffected by Evaluation data The following diagnostics were reviewed and interpreted by me:: lab results and EKG tracing(s) Lab and/or radiology exams considered but not ordered:: none Interpretation Summary: See MDM. Medications / Prescriptions Medications or Prescriptions considered but not ordered:: none Medication administrations:: Medication Administration History Discontinued Medications Phenobarbital Sodium 260 mg/ (Sodium Chloride 12 ml) 0 mg IVP X1 ONE Stop: 07/15/25 01:41 Last Admin: 07/15/25 01:51 Dose: 260 mg Documented By: PATIENCE Comments: Verified with Will RN Phenobarbital Sodium 260 mg/ (Sodium Chloride 12 ml) 0 mg IVP X1 ONE Stop: 07/15/25 02:07 Last Admin: 07/15/25 02:23 Dose: 260 mg Documented By: DES Ondansetron HCl (Ondansetron Inj 2 Mg/Ml Inj 2 Ml) 4 mg IVP X1 ONE; Protocol Stop: 07/15/25 02:08 Last Admin: 07/15/25 02:22 Dose: 4 mg Documented By: DES see above Consultations Consultation(s) initiated? (list below): Yes Diagnosis Differential diagnosis alcohol: other (See MDM) Most likely diagnosis given after review of the tests above:: see clinical impression below Admission Indicated Admission indicated?: indicated Admission Request Was there a request for admission?: Yes Admission Attestation Admission request attestation: Discussed case with [] from Hospitalist service regarding admission. Discussed patients ED course, exam findings, labs, and radiology results. The Hospitalist [agrees,declines] to accept the patient for admission. Disposition Plan Disposition Plan: Admit
[2025-07-15] MEDS: SODIUM CHLORIDE 0.9% IVP ×2 (01:51→02:23)
[2025-07-15] MEDS: FLUSH IVP ×2 (01:51→02:23)
[2025-07-15] MEDS: PHENOBARBITAL IVP ×2 (01:51→02:23)
[2025-07-15] MEDS: ONDANSETRON INJ 2 MG/ML INJ 2 ML 4 MG IVP (02:22)
[2025-07-15 02:39] LABS: Basophils # (Auto) 0.0 Thou/mm3 (0.0-0.2); Basophils % (Auto) 1 % (0-2.5); Eosinophils # (Auto) 0.0 Thou/mm3 (0.0-0.5); Eosinophils % (Auto) 0 % (0-10); Hematocrit 39.3 % (41.0-53.0); Hemoglobin 13.4 g/dL (13.5-16.0); Immature Granulocytes Auto 0.01 Thou/mm3 (0.00-0.00); Lymphocytes # (Auto) 1.2 Thou/mm3 (1.0-4.8); Lymphocytes % (Auto) 31 % (10-50); Mean Corpuscular HGB Conc 34.1 g/dl (31.0-37.0); Mean Corpuscular Hemoglobin 32.5 pg (25.0-35.0); Mean Corpuscular Volume 95 fL (80-100); Monocytes # (Auto) 0.4 Thou/mm3 (0.0-0.8); Monocytes % (Auto) 10 % (0-12); Neutrophils # (Auto) 2.2 Thou/mm3 (1.8-7.7); Neutrophils % (Auto) 58 % (37-80); Nucleated Red Blood Cell # 0.00 Thou/mm3 (0.00-0.00); Nucleated Red Blood Cell % 0 /100 WBC (0); Platelet Count 98 Thou/mm3 (140-440); RDW Standard Deviation 50.0 fL (35.1-43.9); Red Blood Count 4.12 Miln/mm3 (4.50-5.90); White Blood Count 3.8 Thou/mm3 (3.8-10.6)
[2025-07-15 02:42] LABS: Amphetamine/Methamp Scrn,U Negative (Negative); Barbiturate Screen,Urine Negative (Negative); Benzodiazepines Screen,Urine Negative (Negative); Benzoylecgonine Screen, Ur Negative (Negative); Fentanyl Screen,Urine Negative (Negative); Opiate Screen,Urine Negative (Negative); THC Screen,Urine Positive (Negative)
[2025-07-15 02:46] LABS: Alanine Aminotransferase 201 U/L (10-49); Albumin, Serum 4.7 gm/dL (3.5-5.0); Albumin/Globulin Ratio 1.3 (1.2-2.2); Alcohol, Blood Medical 50.6 mg/dL (0-10.0); Alkaline Phosphatase 280 U/L (46-116); Anion Gap 12 (7-16); Aspartate Amino Transferase 507 U/L (0-34); BUN/Creatinine Ratio 12 Ratio (12-20); Bilirubin,Total 0.8 mg/dL (0.3-1.2); Blood Urea Nitrogen 7 mg/dL (9-23); Calcium 9.6 mg/dL (8.3-10.6); Calcium (Corrected) 9.6 mg/dL (8.5-10.1); Carbon Dioxide 26.1 mMol/L (20.0-31.0); Chloride 100 mMol/L (98-107); Creatinine (Component) 0.6 mg/dL (0.6-1.3); Estimated Creatinine Clearance 208.3 mL/min (>60); Globulin 3.6 gm/dL (2.3-3.5); Glucose 91 mg/dL (74-106); Osmolality,Calculated 273 (275-295); Potassium 4.2 mMol/L (3.4-5.1); Sodium 138 mMol/L (136-145); Total Protein 8.3 gm/dL (5.7-8.2); eGFR > 60 See Note
--- NOTE | 2025-07-15 03:12 | ESHP_ITS ---
<Statement entered by Malick Javier MD - 07/15/25 06:04> I have discussed and was present for the essential components of the history, physical examination, diagnosis, and treatment plan with the resident. I agree with the patient's care as documented by the resident and amended herein by me. Malick Javier MD FACP. Documentation for date of: 07/15/25 HPI History of Present Illness History of present illness: Limited history due to poor historian 35-year-old male with a history of homelessness, substance use disorder (including THC and methamphetamine use), possible schizophrenia, hypertension, and hyperlipidemia presents to the ED with alcohol withdrawal symptoms, primarily sweating and shaking. He reports recent methamphetamine use but is unsure of the exact timing of his last alcohol consumption. The patient describes daily vodka use but cannot estimate the quantity. He denies visual, auditory, or tactile hallucinations at this time. The patient also complains of a headache and is unsure if he has a history of seizures. He denies any chest pain or shortness of breath. ED course: Initial vitals in ED include T 97.8, BP 136/70, HR 116, RR 22, 96% on room air. Initial CIWA score 34. Patient received phenobarbital to 260 mg IV x 2. CIWA improved to 9. Blood alcohol level 50.6. EKG showed normal sinus rhythm at a rate of 89. CBC showed platelets 98, CMP showed creatinine 0.6, glucose 91, T. bili 0.8, AST 507, ALT 201, alk phos 280. Urine toxicology screen showed marijuana positive. Past medical history: As stated above. Allergies: Ketorolac Family history: Noncontributory. Social history: Extensive alcohol use, no smoking, uses drugs Patient admitted for alcohol withdrawals. Review of Systems Review of Systems Narrative Review of Systems: All systems reviewed negative unless stated otherwise above. Exam Vital Signs Temp Pulse Resp BP Pulse Ox O2 Del Method O2 Flow Rate 97.8 F 92 11 L 132/84 H 97 Nasal Cannula 2 07/15/25 01:40 07/15/25 03:01 07/15/25 03:01 07/15/25 03:01 07/15/25 03:01 07/15/25 03:01 07/15/25 03:01 Narrative Exam General: AOx3, in moderate distress, anxious, obeying commands HEENT: NC/AT, mucous membranes dry, bilateral sclera anicteric Cardiovascular: regular rate and rhythm, S1/S2 present, no murmurs appreciated Pulmonary: clear to auscultation bilaterally, no rales/rhonchi/wheezes Abdominal: soft, generalized tenderness all over abdomen, non-distended, no rebound/guarding, normal bowel sounds present Musculoskeletal: normal ROM, chronic bilateral lower extremity symmetrical lymphedema Skin: warm and dry, intact, no rashes, Neuro: CN II-XII intact, no focal deficits Results: Labs 07/15/25 04:32 07/15/25 04:32 Labs: Short CBC 07/15/25 Range/Units 02:00 WBC 3.8 (3.8-10.6) Thou/mm3 Hgb 13.4 L (13.5-16.0) g/dL Hct 39.3 L (41.0-53.0) % Plt Count 98 L (140-440) Thou/mm3 BMP 07/15/25 02:00 Sodium 138 Potassium 4.2 Chloride 100 Carbon Dioxide 26.1 BUN 7 L Creatinine 0.6 Glucose 91 Calcium 9.6 Liver Function 07/15/25 Range/Units 02:00 Total Bilirubin 0.8 (0.3-1.2) mg/dL AST 507 H* (0-34) U/L ALT 201 H (10-49) U/L Alkaline Phosphatase 280 H (46-116) U/L Albumin 4.7 (3.5-5.0) gm/dL Quality Measures Quality Measures none Medications Home Medications and Allergies Home Medications ?Medication ?Instructions ?Recorded ?Confirmed ?Type gabapentin 600 mg tablet 600 mg PO TID 11/24/2411/24 History quetiapine 300 mg tablet (Seroquel) 600 mg PO HS 11/2411/24/24 History Held on 11/26/24. Instructions: hold until seen by pcp Allergies Allergy/AdvReac Type Severity Reaction Status Date / Time ketorolac Allergy Intermediate ITCHING Verified 04/21/25 15:09 Visit Medications Discontinued Medications Phenobarbital Sodium 260 mg/ (Sodium Chloride 12 ml) 0 mg IVP X1 ONE Stop: 07/15/25 01:41 Last Admin: 07/15/25 01:51 Dose: 260 mg Phenobarbital Sodium 260 mg/ (Sodium Chloride 12 ml) 0 mg IVP X1 ONE Stop: 07/15/25 02:07 Last Admin: 07/15/25 02:23 Dose: 260 mg Ondansetron HCl (Ondansetron Inj 2 Mg/Ml Inj 2 Ml) 4 mg IVP X1 ONE; Protocol Stop: 07/15/25 02:08 Last Admin: 07/15/25 02:22 Dose: 4 mg Assessment & Plan Plan 35-year-old male with a history of homelessness, substance use disorder (including THC and methamphetamine use), possible schizophrenia, hypertension, and hyperlipidemia presents to the ED for alcohol withdrawal. #Alcohol intoxication #Alcohol withdrawal Patient has previous admissions for alcohol intoxication, alcohol level on admission 50.6 Unsure when last drink was CIWA at the time of ED presentation was 34, received phenobarbital 260 mg IV x 2, with CIWA improvement to 9 No concern of delirium tremens at this time No hallucinations at this time Will need to continue monitoring symptoms including hallucinations, restlessness, vital sign changes including tachycardia to monitor for withdrawal Plan: ? CIWA protocol ? CIWA 7-11 --> midazolam 2 mg IV every 2 hours as needed ? CIWA 12?20 --> midazolam 4 mg IV every 2 hours as needed ? Chlordiazepoxide 25 mg p.o. 3 times daily ? Thiamine 500 mg IV x 1 followed by 100 mg IV twice daily ? Folic acid 1 mg IV daily ? Seizure precautions ? Aspiration precautions #Chronic alcohol use #Transaminitis AST 507, ALT 201, alk phos 280 Calculate [facility] discriminant function for alcoholic hepatitis once INR and PT levels return Plan ? Abdominal ultrasound ordered ? Hepatitis panel ordered ? Monitor LFTs with daily labs ? INR with PT level ordered #Thrombocytopenia In the setting of alcoholic liver disease Platelet count on admission 98 No concern at the moment for bleeding Plan ? Monitor with daily CBC #Hyperlipidemia ?Lipid panel ordered #Hypertension ?Pending med recon #History of anxiety #Homeless #Polysubstance abuse, THC and methamphetamine #Hx of Alcohol abuse THC seen in U tox, alcohol level of 50.6 on admission Plan: ? Referral to social scientist #?Schizophrenia ? Pending med recon #?Seizure disorder Unsure if takes Keppra ? Keppra level ordered Health Maintenance: Diet: N.p.o. GI prophylaxis: Protonix 40 mg IV daily DVT prophylaxis: Heparin 5000 units SC every 12 hours Antibiotics: None CODE STATUS: Full Disposition: Telemetry for close monitoring Case discussed with my attending Dr. Javier, and senior resident, Dr. Ruth Clayton MD PGY-1
[2025-07-15] MEDS: THIAMINE INJ 500 MG in SODIUM CHLORIDE 0.9% 100 ML 205 MG IV (04:31)
[2025-07-15] MEDS: RINGERS LACTATED 1000 ML 500 ML 999 ML IV (04:33)
[2025-07-15 04:35] LABS: Lactate (Lactic Acid) 1.1 mMol/L (0.4-2.0)
[2025-07-15] MEDS: MIDAZOLAM INJ 1 MG/ML VIAL 2 ML 2 MG IVP (04:38)
[2025-07-15 04:39] LABS: Basophils # (Auto) 0.0 Thou/mm3 (0.0-0.2); Basophils % (Auto) 1 % (0-2.5); Eosinophils # (Auto) 0.0 Thou/mm3 (0.0-0.5); Eosinophils % (Auto) 0 % (0-10); Hematocrit 34.5 % (41.0-53.0); Hemoglobin 11.8 g/dL (13.5-16.0); Immature Granulocytes Auto 0.00 Thou/mm3 (0.00-0.00); Lymphocytes # (Auto) 0.9 Thou/mm3 (1.0-4.8); Lymphocytes % (Auto) 28 % (10-50); Mean Corpuscular HGB Conc 34.2 g/dl (31.0-37.0); Mean Corpuscular Hemoglobin 32.7 pg (25.0-35.0); Mean Corpuscular Volume 96 fL (80-100); Monocytes # (Auto) 0.3 Thou/mm3 (0.0-0.8); Monocytes % (Auto) 10 % (0-12); Neutrophils # (Auto) 2.0 Thou/mm3 (1.8-7.7); Neutrophils % (Auto) 62 % (37-80); Nucleated Red Blood Cell # 0.00 Thou/mm3 (0.00-0.00); Nucleated Red Blood Cell % 0 /100 WBC (0); Platelet Count 81 Thou/mm3 (140-440); RDW Standard Deviation 49.9 fL (35.1-43.9); Red Blood Count 3.61 Miln/mm3 (4.50-5.90); White Blood Count 3.3 Thou/mm3 (3.8-10.6)
--- NOTE | 2025-07-15 04:56 | XR_ITS ---
Examination: Abdomen sonogram, complete Date and time of exam: 07/15/2025, 7:37 a.m. INDICATION: Cirrhosis, alcohol withdrawal for 2 days COMPARISON: CT chest abdomen and pelvis 03/18/2022 Technique: Multiple real-time grayscale transabdominal sonographic images of the abdomen have been obtained. Findings: FINDINGS: The visualized portions of the pancreas appear normal. Hepatomegaly is reidentified, the liver measured at 25.5 cm in length. The liver parenchyma demonstrates diffusely increased echogenicity, correlating with severe hepatic steatosis on prior CT. The liver contour appears smooth. No evidence for liver mass on the provided images. Color Doppler demonstrates patency of the main portal vein with normal hepatopetal flow. Color Doppler shows hepatic venous flow as well. The gallbladder is normal in appearance with no stones or mural thickening. No significant bile duct dilatation identified; the CBD is measured at 6 mm. Spleen is mildly enlarged, measured at 13.6 cm in length. It measures mildly smaller compared to prior CT. Previously visualized 2.4 cm cystic lesion at the inferior pole of the spleen is not identified on this exam. The kidneys are normal in size and echogenicity bilaterally with right renal length of 13.4 cm and left renal length of 12.9 cm. No hydronephrosis, dominant calculus or renal mass evident. The visualized portions of the abdominal aorta and inferior vena cava are normal in appearance with no abdominal aortic aneurysm appreciated. No mass, ascites or other significant finding is identified. IMPRESSION: The liver demonstrates diffusely increased echotexture consistent with the severe hepatic steatosis seen on prior CT. Increased echogenicity due to underlying fibrosis cannot be excluded, but liver contours are smooth. Very mild splenomegaly. No ascites. Unremarkable gallbladder, bile ducts, kidneys and partially imaged pancreas.
[2025-07-15 05:04] LABS: Alanine Aminotransferase 166 U/L (10-49); Albumin, Serum 4.0 gm/dL (3.5-5.0); Albumin/Globulin Ratio 1.3 (1.2-2.2); Alkaline Phosphatase 242 U/L (46-116); Anion Gap 6 (7-16); Aspartate Amino Transferase 379 U/L (0-34); BUN/Creatinine Ratio 9 Ratio (12-20); Bilirubin,Total 0.9 mg/dL (0.3-1.2); Blood Urea Nitrogen 6 mg/dL (9-23); Calcium 9.1 mg/dL (8.3-10.6); Calcium (Corrected) 9.1 mg/dL (8.5-10.1); Carbon Dioxide 28.7 mMol/L (20.0-31.0); Cardiac Risk Estimate 3.9 RATIO (4.0-6.7); Chloride 102 mMol/L (98-107); Cholesterol 227 mg/dL (132-200); Creatinine (Component) 0.7 mg/dL (0.6-1.3); Estimated Creatinine Clearance 178.6 mL/min (>60); Globulin 3.1 gm/dL (2.3-3.5); Glucose 99 mg/dL (74-106); HDL Cholesterol 58 mg/dL (40-60); LDL Cholesterol,Calculated 145 mg/dL (0-130); Magnesium 1.4 mg/dL (1.6-2.6); Osmolality,Calculated 271 (275-295); Phosphorous 3.9 mg/dL (2.4-5.1); Potassium 4.6 mMol/L (3.4-5.1); Sodium 137 mMol/L (136-145); Thyroid Stimulating Hormone 3.12 uIU/mL (0.55-4.78); Total Protein 7.1 gm/dL (5.7-8.2); Triglycerides 118 mg/dL (30-150); eGFR > 60 See Note
[2025-07-15] MEDS: RINGERS LACTATED 1000 ML 1,000 ML 100 ML IV (05:50)
[2025-07-15] MEDS: Magnesium Sulfate 4 GM Ivpb 4 GM/50 ML BAG IV (05:50)
[2025-07-15] MEDS: MIDAZOLAM INJ 1 MG/ML VIAL 2 ML 4 MG IVP ×7 (05:58→20:34)
--- NOTE | 2025-07-15 06:08 | PC.NURSE ---
Patient arrived to 266 from ED pt refuses skin assessment just wants to be left alone. 2 lighters placed in chart
[2025-07-15 06:13] LABS: INR 1.0 (0.9-1.3); Prothrombin Time 10.9 Seconds (9.0-12.2)
[2025-07-15 06:37] LABS: Hepatitis A Antibody IgM Non Reactive (Non React); Hepatitis B Core Antibody IgM Non Reactive (Non React); Hepatitis B Surface Antigen Non Reactive (Non React); Hepatitis C Antibody Non Reactive (Non React)
[2025-07-15] MEDS: HEPARIN SOD INJ 5000 UNIT/ML VIAL SC ×2 (08:20→20:14)
[2025-07-15] MEDS: THIAMINE INJ 100 MG in SODIUM CHLORIDE 0.9% 100 ML 202 MG IV ×2 (10:04→20:08)
[2025-07-15] MEDS: FOLIC ACID INJ 1 MG/0.2 ML IVP (10:04)
[2025-07-15] MEDS: levETIRAcetam LIQD 500 MG/5 ML UDC PO ×2 (11:33→20:08)
--- NOTE | 2025-07-15 13:29 | ESPR_ITS ---
<Statement entered by Ramírez Borges MD - 07/15/25 16:42> Patient is seen at bedside and current CIWA is between 9 and 11. Will continue IV CIWA protocol. Patient was seen and examined by me personally. I have directly supervised and reviewed documentation by the team resident and agree with its findings. ------- Plan of care was discussed with the attending, Dr. Yusuf Borges, PGY-2 Documentation for date of: 07/15/25 Subjective Subjective Interval history: Patient seen and examined at bedside. Patient CIWA up to 18 overnight. Received midazolam. Transaminitis resolving. Abdominal ultrasound showed hepatic steatosis. Restarted his Keppra and Seroquel. Exam Vital Signs Temp Pulse Resp BP Pulse Ox O2 Del Method O2 Flow Rate 97.8 F 69 13 148/98 H 97 Room Air 2 07/15/25 12:00 07/15/25 12:00 07/15/25 12:00 07/15/25 12:00 07/15/25 12:00 07/15/25 12:00 07/15/25 08:00 Narrative Exam General: Disheveled man. Lethargic. No acute distress. Neurologic: GCS 13. Alert and oriented x3, no gross neurological deficit, and patient able to move all 4 extremities. HEENT: Normocephalic, atraumatic, mucous membranes moist. Pupils reactive to light. Heart: Regular rate and rhythm, normal S1 and S2, no murmurs. Lungs: Clear to auscultation bilaterally with no wheezing or crackles. Abdomen: Diffuse abdominal pain on palpation, no rebound tenderness. Extremities: Chronic lymphedema in the bilateral lower extremities. 2+ radial and dorsalis pedis pulses bilaterally. Skin: Warm. Dry. No rash or ecchymoses. Objective Labs 07/15/25 04:32 07/15/25 04:32 Labs: Laboratory Results - last 24 hr 07/15/25 07/15/25 02:00 04:32 WBC 3.8 3.3 L RBC 4.12 L 3.61 L Hgb 13.4 L 11.8 L Hct 39.3 L 34.5 L MCV 95 96 MCH 32.5 32.7 MCHC 34.1 34.2 RDW Std Deviation 50.0 H 49.9 H Plt Count 98 L 81 L Neut % (Auto) 58 62 Lymph % (Auto) 31 28 [place] % (Auto) 10 10 Eos % (Auto) 0 0 Baso % (Auto) 1 1 Neut # (Auto) 2.2 2.0 Lymph # (Auto) 1.2 0.9 L [place] # (Auto) 0.4 0.3 Eos # (Auto) 0.0 0.0 Baso # (Auto) 0.0 0.0 Immature Gran # (Auto) 0.01 H 0.00 Absolute Nucleated RBC 0.00 0.00 Immature Gran % 0 0 Nucleated RBC % 0 0 PT 10.9 INR 1.0 Sodium 138 137 Potassium 4.2 4.6 Chloride 100 102 Carbon Dioxide 26.1 28.7 Anion Gap 12 6 L BUN 7 L 6 L Creatinine 0.6 0.7 Estim Creat Clear Calc 208.3 178.6 eGFR > 60 > 60 BUN/Creatinine Ratio 12 9 L Glucose 91 99 Calculated Osmolality 273 L 271 L Lactic Acid 1.1 Calcium 9.6 9.1 Corrected Calcium 9.6 9.1 Phosphorus 3.9 Magnesium 1.4 L Total Bilirubin 0.8 0.9 AST 507 H* 379 H ALT 201 H 166 H Alkaline Phosphatase 280 H 242 H D Total Protein 8.3 H 7.1 Albumin 4.7 4.0 D Globulin 3.6 H 3.1 Albumin/Globulin Ratio 1.3 1.3 Triglycerides 118 Cholesterol 227 H LDL Cholesterol, Calc 145 H HDL Cholesterol 58 Cholesterol/HDL Ratio 3.9 L TSH 3.12 Urine Opiates Screen Negative Urine Fentanyl Screen Negative Ur Barbiturates Screen Negative U Amphetamin/Meth Scrn Negative U Benzodiazepines Scrn Negative U Cocaine Metab Screen Negative U Marijuana (THC) Screen Positive A Ethyl Alcohol 50.6 H Hepatitis A IgM Ab Non Reactive Hep Bs Antigen Non Reactive Hep B Core IgM Ab Non Reactive Hepatitis C Antibody Non Reactive Quality Measures Quality Measures none Assessment & Plan Assessment Current Active Medications: Generic Name Dose Route Start Last Admin Trade Name Freq PRN Reason Stop Dose Admin Chlordiazepoxide HCl 25 mg 07/15/25 09:00 07/15/25 08:21 Chlordiazepoxide Hcl 25 Mg Capsule PO 07/16/25 08:59 25 mg Q8H LEANDRA Administration Dextrose 25 ml 07/15/25 03:54 Dextrose 50%-Water Inj 50 Ml Syringe IV 08/14/25 03:53 Q15MIN PRN BG 50-70 responsive npo pt Dextrose 50 ml 07/15/25 03:54 Dextrose 50%-Water Inj 50 Ml Syringe IV 08/14/25 03:53 Q15MIN PRN BG <50 OR BG <70 & pt unresponsive Folic Acid 1 mg 07/15/25 09:00 07/15/25 10:04 Folic Acid Inj 1 Mg/0.2 Ml IVP 08/14/25 08:59 1 mg QDAY LEANDRA Administration Glucagon 1 mg 07/15/25 03:54 Glucagon Inj 1 Mg Vial IM Q15MIN PRN BG <70, and no IV access Heparin Sodium (Porcine) 5,000 unit 07/15/25 09:00 07/15/25 08:20 Heparin Sod Inj 5000 Unit/Ml Vial SC 07/29/25 08:59 5,000 unit Q12HR LEANDRA Administration Lactated Ringer's 1,000 mls @ 100 mls/hr 07/15/25 04:00 07/15/25 05:50 Lactated Ringers IV 07/15/25 13:59 100 mls/hr .Q10H LEANDRA Administration Thiamine HCl 100 mg/ Sodium 101 mls @ 202 mls/hr 07/15/25 09:00 07/15/25 10:04 Chloride IV 08/14/25 08:59 202 mls/hr BID LEANDRA Administration Levetiracetam 500 mg 07/15/25 11:00 07/15/25 11:33 Levetiracetam Liqd 500 Mg/5 Ml Udc PO 08/14/25 10:59 500 mg BID LEANDRA Administration Lorazepam 0.5 mg 07/15/25 03:46 Lorazepam 2 Mg/Ml Vial IVP 07/20/25 03:45 Q2H PRN CIWA 2-6 Midazolam HCl 4 mg 07/15/25 03:41 07/15/25 12:19 Midazolam Inj 1 Mg/Ml Vial 2 Ml IVP 07/20/25 03:44 4 mg Q2H PRN Administration CIWA (12-20) Midazolam HCl 2 mg 07/15/25 03:46 07/15/25 04:38 Midazolam Inj 1 Mg/Ml Vial 2 Ml IVP 07/20/25 03:59 2 mg Q2H PRN Administration CIWA (7-11) Ondansetron HCl 4 mg 07/15/25 03:31 Ondansetron Inj 2 Mg/Ml Inj 2 Ml IVP 08/14/25 03:30 Q6H PRN NAUSEA OR VOMITING Protocol Pantoprazole Sodium 40 mg 07/15/25 09:00 07/15/25 08:20 Pantoprazole Inj 40 Mg Vial IVP 08/14/25 08:59 40 mg QDAY LEANDRA Administration Quetiapine Fumarate 300 mg 07/15/25 21:00 Quetiapine Fumarate 100 Mg Tablet PO 08/14/25 20:59 HS LEANDRA Plan 35-year-old male with a history of homelessness, substance use disorder (including THC and methamphetamine use), possible schizophrenia, hypertension, and hyperlipidemia presents to the ED for alcohol withdrawal. #Alcohol intoxication #Alcohol withdrawal Patient has previous admissions for alcohol intoxication, alcohol level on admission 50.6 Unsure when last drink was CIWA at the time of ED presentation was 34, received phenobarbital 260 mg IV x 2, with CIWA improvement to 9 Patient endorsed auditory hallucinations, CIWA 10 Will need to continue monitoring symptoms including hallucinations, restlessness, vital sign changes including tachycardia to monitor for withdrawal Plan: ? CIWA protocol ? CIWA 7-11 --> midazolam 2 mg IV every 2 hours as needed ? CIWA 12?20 --> midazolam 4 mg IV every 2 hours as needed ? Chlordiazepoxide 25 mg p.o. 3 times daily ? Thiamine 500 mg IV x 1 followed by 100 mg IV twice daily ? Folic acid 1 mg IV daily ? Seizure precautions ? Aspiration precautions #Chronic alcohol use #Transaminitis AST 507, ALT 201, alk phos 280 Calculate [facility] discriminant function for alcoholic hepatitis once INR and PT levels return Hep panel negative Abdominal ultrasound showed severe hepatic steatosis, likely due to alcohol abuse LFTs downtrending PT and INR within normal parameters Patient has diffuse abdominal pain on exam Plan: ? Monitor LFTs with daily labs ? Follow-up lipase level #Schizophrenia Patient takes Seroquel per med rec Plan: ? Restarted Seroquel 300 mg p.o. at bedtime #Seizure disorder Patient takes Keppra 500 mg p.o. twice daily per med rec Keppra level ordered Plan: ? Restarted Keppra 500 mg p.o. twice daily #Thrombocytopenia In the setting of alcoholic liver disease Platelet count on admission 98, stable No concern at the moment for bleeding Plan ? Monitor with daily CBC #Hyperlipidemia ? Cholesterol and LDL cholesterol elevated Plan: ? Consider starting statin upon discharge, though the patient has an issue with noncompliance and alcohol abuse #Stage II hypertension ? Pending med recon ? Patient has had stage II hypertension ? Per med rec the patient does not appear to be on any antihypertensives Plan: ? Consider GDMT upon discharge with losartan #History of anxiety #Homeless #Polysubstance abuse, THC and methamphetamine #Hx of Alcohol abuse THC seen in U tox, alcohol level of 50.6 on admission Plan: ? Referral to geriatric social worker Health Maintenance: Diet: Regular diet GI prophylaxis: Protonix 40 mg IV daily DVT prophylaxis: Heparin 5000 units SC every 12 hours Antibiotics: None CODE STATUS: Full Disposition: Telemetry for close monitoring, CIWA protocol remains in place, patient receiving midazolam as needed for withdrawals, restarted Keppra and Seroquel. Patient has diffuse abdominal tenderness, lipase ordered. Patient was seen and discussed with my attending physician Dr. Yusuf ANGEL and my senior resident Dr. Jony WHEELER PGY-2. Avtar Rogers DO PGY-1. Attending Provider Attestation/Addendum Lianet, Marcelina Goldberg DO, attest that I was physically present for the [place] portions of the service and evaluated the patient with the resident and I reviewed and discussed the case with the resident and agree with the resident's findings and plans of care as documented above Patient seen and evaluated this AM. Patient is disheveled with poor hygiene. He remains tremulous and endorses having headache, nausea, abdominal pain. He denies any auditory or visual hallucinations. Patient has tenderness to palpation of epigastric region. Lipase has been negative. Will order CT abd/pelvis. Will continue with CIWA protocol. CIWA score of 13.
[2025-07-15 13:45] LABS: Lipase 48 U/L (12-53)
--- NOTE | 2025-07-15 16:19 | XR_ITS ---
Examination: CT abdomen and pelvis without contrast. Coronal 3-D reconstructions. Sagittal 2-D reconstructions. Date and time of exam: July 15, 2025, 1437 hours, comparison March 18, 2022 INDICATIONS: Alcohol withdrawal with abdominal pain beginning 2 days ago, cirrhosis diagnosis CTDI: vol (mGy): 9.70 DLP: (mGycm): 674 Technique: Axial images of the abdomen have been obtained, 3 mm slice thickness Intravenous contrast material has not been administered. Low dose protocols were performed. One or more of the following dose reduction techniques were used; automated exposure control, adjustment of the mA and/or KV according to patient size, use of iterative reconstruction technique. Findings: Severe diffuse fatty infiltration throughout the liver, no focal liver lesions Gallbladder wall appears mildly thickened No pancreatic mass Moderate hepatomegaly No bowel obstruction No pericecal inflammatory change No bladder mass or bladder calculi Small fat-containing inguinal hernias Mild osteopenia IMPRESSION: Primary pelvis liver disease, moderate hepatomegaly, severe diffuse fatty infiltration throughout the liver Recommend hepatobiliary sonography follow-up to exclude gallbladder wall thickening No bowel obstruction No CT findings of appendicitis or diverticulitis
--- NOTE | 2025-07-15 23:55 | PC.NURSE ---
2310 assume care of pt, pt sleeping, arousable to call of name, alert and oriented x3. pt falls back to sleep while conversing, call light within reach. bed alarm on.
[2025-07-16] VITALS (7 sets, daily range): BP systolic 110–139; BP diastolic 58–93; PULSE 68–95; RESP 10–17; TEMP 36–36.8; O2SAT 95–98; BMI 31.4
[2025-07-16 03:45] LABS: Collection Type, Urine Catheter; WBC,Urine 0 /hpf (0-5)
[2025-07-16 04:06] LABS: Bilirubin,Urine Negative (Negative); Blood,Urine Negative (Negative); Clarity,Urine Clear (Clear/Hazy); Color,Urine Lt-Yellow (Lt Yel-Yel); Glucose, Urine Negative (Negative); Ketones,Urine Negative (Negative); Leukocyte Esterase,Urine Negative (Negative); Nitrite,Urine Negative (Negative); PH,Urine 7.5 (5.0-7.0); Protein,Urine Negative (Neg - Trace); RBC,Urine < 1 /hpf (0-3); Specific Gravity,Urine 1.006 (1.001-1.035); Squamous Epithelial Cell,Urine < 1 /hpf (0-5); Urobilinogen,Urine Negative mg/dL (0.0-1.0)
[2025-07-16 06:45] LABS: Basophils # (Auto) 0.0 Thou/mm3 (0.0-0.2); Basophils % (Auto) 0 % (0-2.5); Eosinophils # (Auto) 0.1 Thou/mm3 (0.0-0.5); Eosinophils % (Auto) 2 % (0-10); Hematocrit 37.6 % (41.0-53.0); Hemoglobin 12.8 g/dL (13.5-16.0); Immature Granulocytes Auto 0.01 Thou/mm3 (0.00-0.00); Lymphocytes # (Auto) 1.2 Thou/mm3 (1.0-4.8); Lymphocytes % (Auto) 41 % (10-50); Mean Corpuscular HGB Conc 34.0 g/dl (31.0-37.0); Mean Corpuscular Hemoglobin 32.7 pg (25.0-35.0); Mean Corpuscular Volume 96 fL (80-100); Monocytes # (Auto) 0.2 Thou/mm3 (0.0-0.8); Monocytes % (Auto) 8 % (0-12); Neutrophils # (Auto) 1.5 Thou/mm3 (1.8-7.7); Neutrophils % (Auto) 49 % (37-80); Nucleated Red Blood Cell # 0.00 Thou/mm3 (0.00-0.00); Nucleated Red Blood Cell % 0 /100 WBC (0); RDW Standard Deviation 50.4 fL (35.1-43.9); Red Blood Count 3.92 Miln/mm3 (4.50-5.90); White Blood Count 3.0 Thou/mm3 (3.8-10.6)
[2025-07-16 06:50] LABS: Platelet Count 69 Thou/mm3 (140-440)
[2025-07-16 07:09] LABS: Alanine Aminotransferase 222 U/L (10-49); Albumin, Serum 4.0 gm/dL (3.5-5.0); Albumin/Globulin Ratio 1.3 (1.2-2.2); Alkaline Phosphatase 244 U/L (46-116); Anion Gap 11 (7-16); Aspartate Amino Transferase 432 U/L (0-34); BUN/Creatinine Ratio 10 Ratio (12-20); Bilirubin,Total 0.9 mg/dL (0.3-1.2); Blood Urea Nitrogen 6 mg/dL (9-23); Calcium 8.9 mg/dL (8.3-10.6); Calcium (Corrected) 8.9 mg/dL (8.5-10.1); Carbon Dioxide 25.0 mMol/L (20.0-31.0); Chloride 102 mMol/L (98-107); Creatinine (Component) 0.6 mg/dL (0.6-1.3); Estimated Creatinine Clearance 211.4 mL/min (>60); Globulin 3.2 gm/dL (2.3-3.5); Glucose 77 mg/dL (74-106); Magnesium 1.8 mg/dL (1.6-2.6); Osmolality,Calculated 272 (275-295); Phosphorous 2.8 mg/dL (2.4-5.1); Potassium 3.2 mMol/L (3.4-5.1); Sodium 138 mMol/L (136-145); Total Protein 7.2 gm/dL (5.7-8.2); eGFR > 60 See Note
[2025-07-16 08:03] LABS: Slide Review Platelets confirmed
[2025-07-16] MEDS: MIDAZOLAM INJ 1 MG/ML VIAL 2 ML 4 MG IVP ×3 (08:07→22:59)
[2025-07-16] MEDS: FOLIC ACID INJ 1 MG/0.2 ML IVP (08:08)
[2025-07-16] MEDS: Magnesium Sulfate 2 GM Ivpb 2 GM/50 ML BAG IV (08:08)
[2025-07-16] MEDS: levETIRAcetam LIQD 500 MG/5 ML UDC PO ×2 (08:08→20:35)
--- NOTE | 2025-07-16 09:36 | ESPR_ITS ---
Documentation for date of: 07/16/25 Subjective Subjective Interval history: Patient seen and examined at bedside. CIWA 17 this morning. Patient mentioned that he has been taking seroquel but not keppra and that he has not had a seizure in a long time. Will continue CIWA. Will continue Librium TID. Exam Vital Signs Temp Pulse Resp BP Pulse Ox O2 Del Method O2 Flow Rate 97.3 F 95 17 120/75 98 Room Air 2 07/16/25 08:00 07/16/25 08:00 07/16/25 08:00 07/16/25 08:00 07/16/25 08:00 07/16/25 08:00 07/15/25 08:00 Narrative Exam General: Disheveled man. No acute distress. Neurologic: GCS 15. Alert and oriented x3, no gross neurological deficit, and patient able to move all 4 extremities. HEENT: Normocephalic, atraumatic, mucous membranes moist. Pupils reactive to light. Heart: Regular rate and rhythm, normal S1 and S2, no murmurs. Lungs: Clear to auscultation bilaterally with no wheezing or crackles. Abdomen: Soft nontender nondistended. No guarding or rebound tenderness. Extremities: Chronic lymphedema in the bilateral lower extremities. 2+ radial and dorsalis pedis pulses bilaterally. Skin: Warm. Dry. No rash or ecchymoses. Objective Labs 07/16/25 04:52 07/16/25 04:52 Labs: Laboratory Results - last 24 hr 07/15/25 07/16/25 07/16/25 04:32 02:20 04:52 WBC 3.0 L RBC 3.92 L Hgb 12.8 L Hct 37.6 L MCV 96 MCH 32.7 MCHC 34.0 RDW Std Deviation 50.4 H Plt Count 69 L Neut % (Auto) 49 Lymph % (Auto) 41 [place] % (Auto) 8 Eos % (Auto) 2 Baso % (Auto) 0 Neut # (Auto) 1.5 L Lymph # (Auto) 1.2 [place] # (Auto) 0.2 Eos # (Auto) 0.1 Baso # (Auto) 0.0 Immature Gran # (Auto) 0.01 H Absolute Nucleated RBC 0.00 Immature Gran % 0 Nucleated RBC % 0 Sodium 138 Potassium 3.2 L D Chloride 102 Carbon Dioxide 25.0 Anion Gap 11 BUN 6 L Creatinine 0.6 Estim Creat Clear Calc 211.4 eGFR > 60 BUN/Creatinine Ratio 10 L Glucose 77 Calculated Osmolality 272 L Calcium 8.9 Corrected Calcium 8.9 Phosphorus 2.8 Magnesium 1.8 Total Bilirubin 0.9 AST 432 H ALT 222 H Alkaline Phosphatase 244 H Total Protein 7.2 Albumin 4.0 Globulin 3.2 Albumin/Globulin Ratio 1.3 Lipase 48 Ur Collection Type Catheter Urine Color Lt-Yellow Urine Clarity Clear Urine pH 7.5 H Ur Specific [place] 1.006 Urine Protein Negative Urine Glucose (UA) Negative Urine Ketones Negative Urine Blood Negative Urine Nitrite Negative Urine Bilirubin Negative Urine Urobilinogen (Auto) Negative Ur Leukocyte Esterase Negative Urine RBC < 1 Urine WBC 0 Ur Squamous Epith Cells < 1 Urine Bacteria None Misc Test Result Platelets confirmed Quality Measures Quality Measures none Assessment & Plan Assessment Current Active Medications: Generic Name Dose Route Start Last Admin Trade Name Freq PRN Reason Stop Dose Admin Chlordiazepoxide HCl 25 mg 07/16/25 14:00 Chlordiazepoxide Hcl 25 Mg Capsule PO 07/21/25 13:59 TID LEANDRA Dextrose 25 ml 07/15/25 03:54 Dextrose 50%-Water Inj 50 Ml Syringe IV 08/14/25 03:53 Q15MIN PRN BG 50-70 responsive npo pt Dextrose 50 ml 07/15/25 03:54 Dextrose 50%-Water Inj 50 Ml Syringe IV 08/14/25 03:53 Q15MIN PRN BG <50 OR BG <70 & pt unresponsive Folic Acid 1 mg 07/15/25 09:00 07/16/25 08:08 Folic Acid Inj 1 Mg/0.2 Ml IVP 08/14/25 08:59 1 mg QDAY LEANDRA Administration Glucagon 1 mg 07/15/25 03:54 Glucagon Inj 1 Mg Vial IM Q15MIN PRN BG <70, and no IV access Heparin Sodium (Porcine) 5,000 unit 07/15/25 09:00 07/15/25 20:14 Heparin Sod Inj 5000 Unit/Ml Vial SC 07/29/25 08:59 5,000 unit Q12HR LEANDRA Administration Levetiracetam 500 mg 07/15/25 11:00 07/16/25 08:08 Levetiracetam Liqd 500 Mg/5 Ml Udc PO 08/14/25 10:59 500 mg BID LEANDRA Administration Lorazepam 0.5 mg 07/15/25 03:46 Lorazepam 2 Mg/Ml Vial IVP 07/20/25 03:45 Q2H PRN CIWA 2-6 Midazolam HCl 4 mg 07/15/25 03:41 07/16/25 08:07 Midazolam Inj 1 Mg/Ml Vial 2 Ml IVP 07/20/25 03:44 4 mg Q2H PRN Administration CIWA (12-20) Midazolam HCl 2 mg 07/15/25 03:46 07/15/25 04:38 Midazolam Inj 1 Mg/Ml Vial 2 Ml IVP 07/20/25 03:59 2 mg Q2H PRN Administration CIWA (7-11) Ondansetron HCl 4 mg 07/15/25 03:31 Ondansetron Inj 2 Mg/Ml Inj 2 Ml IVP 08/14/25 03:30 Q6H PRN NAUSEA OR VOMITING Protocol Pantoprazole Sodium 40 mg 07/15/25 09:00 07/16/25 08:08 Pantoprazole Inj 40 Mg Vial IVP 08/14/25 08:59 40 mg QDAY LEANDRA Administration Quetiapine Fumarate 300 mg 07/15/25 21:00 07/15/25 20:07 Quetiapine Fumarate 100 Mg Tablet PO 08/14/25 20:59 300 mg HS LEANDRA Administration Thiamine HCl 100 mg 07/16/25 09:15 Thiamine Inj 100 Mg/Ml Vial 2 Ml IV 08/14/25 09:14 BID LEANDRA Plan 35-year-old male with a history of homelessness, substance use disorder (including THC and methamphetamine use), possible schizophrenia, hypertension, and hyperlipidemia presents to the ED for alcohol withdrawal. #Alcohol intoxication #Alcohol withdrawal Patient has previous admissions for alcohol intoxication, alcohol level on admission 50.6 Unsure when last drink was CIWA at the time of ED presentation was 34, received phenobarbital 260 mg IV x 2, with CIWA improvement to 9 Will need to continue monitoring symptoms including hallucinations, restlessness, vital sign changes including tachycardia to monitor for withdrawal Patient's CIWA still elevated at 17 Plan: ? CIWA protocol ? CIWA 7-11 --> midazolam 2 mg IV every 2 hours as needed ? CIWA 12?20 --> midazolam 4 mg IV every 2 hours as needed ? Chlordiazepoxide 25 mg p.o. 3 times daily ? Thiamine 500 mg IV x 1 followed by 100 mg IV twice daily ? Folic acid 1 mg IV daily ? Seizure precautions ? Aspiration precautions #Chronic alcohol use #Transaminitis AST 507, ALT 201, alk phos 280 Hep panel negative Abdominal ultrasound showed severe hepatic steatosis, likely due to alcohol abuse PT and INR within normal parameters Patient's abdominal pain has improved AST ALT remain elevated and stable Lipase negative Plan: ? Monitor LFTs with daily labs #Schizophrenia Patient takes Seroquel per med rec Patient mentions that he has been compliant with Seroquel Plan: ? Continue Seroquel 300 mg p.o. at bedtime #Seizure disorder Patient takes Keppra 500 mg p.o. twice daily per med rec Keppra level ordered Patient mentions that he has not been taking Keppra Plan: ? Restarted Keppra 500 mg p.o. twice daily #Thrombocytopenia In the setting of alcoholic liver disease Platelet count on admission 98, stable No concern at the moment for bleeding Plan ? Monitor with daily CBC #Hyperlipidemia ? Cholesterol and LDL cholesterol elevated Plan: ? Consider starting statin upon discharge, though the patient has an issue with noncompliance and alcohol abuse #Stage II hypertension ? Pending med recon ? Patient has had stage II hypertension ? Per med rec the patient does not appear to be on any antihypertensives ? BP has been stable since admission Plan: ? Consider GDMT upon discharge with losartan #History of anxiety #Homeless #Polysubstance abuse, THC and methamphetamine #Hx of Alcohol abuse THC seen in U tox, alcohol level of 50.6 on admission Plan: ? Referral to social worker psychiatric Health Maintenance: Diet: Regular diet GI prophylaxis: Protonix 40 mg IV daily DVT prophylaxis: Heparin 5000 units SC every 12 hours Antibiotics: None CODE STATUS: Full Disposition: Telemetry for close monitoring, CIWA protocol remains in place, patient receiving midazolam as needed for withdrawals, continuing Keppra and Seroquel. Patient was seen and discussed with my attending physician Dr. Yusuf ANGEL. Avtar Rogers DO PGY-1. Attending Provider Attestation/Addendum Lianet, Marcelina Goldberg DO, attest that I was physically present for the [place] portions of the service and evaluated the patient with the resident and I reviewed and discussed the case with the resident and agree with the resident's findings and plans of care as documented above Patient seen and evaluated this AM. He continues to have a CIWA score of 16. Patient reports headache, pins and needles, nausea, tactile and auditory hallucinations. Will continue with current management. Patient continues to require prn versed. He states he has not been compliant with his keppra and has not had a seizure in a long time. Will continue with keppra and home seroquel.
[2025-07-16] MEDS: THIAMINE INJ 100 MG/ML VIAL 2 ML IV ×2 (09:59→20:35)
[2025-07-16] MEDS: MIDAZOLAM INJ 1 MG/ML VIAL 2 ML 2 MG IVP ×2 (12:41→16:51)
--- NOTE | 2025-07-16 13:50 | PC.SS ---
Rigo Acuna is a 35-year-old male admitted to [facility] for Alcohol Withdrawal. SS conducted bedside contact with the pt to complete initial assessment. Pt was short with SS, pt wanted to sleep. SS confirmed his medical decision maker in case of an emergency is his Mother Pati Berumen [phone]. Pt is homeless. Pt goes to [facility] for needs. Pt does not possess any DME. Pt is independent with needs. SS will attempt to speak to pt later when he is ready to converse about DC planning and AOD resources. DM: [facility] DC plan: Community vs [facility]
--- NOTE | 2025-07-16 14:23 | PC.SS ---
Rounding: on CIWA protocol, DC plan community vs longterm
[2025-07-16] MEDS: NICOTINE PATCH 14 MG/24 HR PATCH.TD24 TOP (21:20)
[2025-07-17] VITALS: BP 97/60; PULSE 100; PULSE 110; RESP 13; TEMP 36.3; O2SAT 95
[2025-07-17 04:00] VITALS: BP 133/86; PULSE 75; PULSE 79; RESP 14; TEMP 36.1; O2SAT 95
[2025-07-17 05:05] VITALS: BMI 28.9
[2025-07-17] MEDS: MIDAZOLAM INJ 1 MG/ML VIAL 2 ML 2 MG IVP ×5 (05:40→23:14)
[2025-07-17 05:41] LABS: Basophils # (Auto) 0.0 Thou/mm3 (0.0-0.2); Basophils % (Auto) 1 % (0-2.5); Eosinophils # (Auto) 0.1 Thou/mm3 (0.0-0.5); Eosinophils % (Auto) 2 % (0-10); Hematocrit 38.6 % (41.0-53.0); Hemoglobin 12.9 g/dL (13.5-16.0); Immature Granulocytes Auto 0.01 Thou/mm3 (0.00-0.00); Lymphocytes # (Auto) 1.7 Thou/mm3 (1.0-4.8); Lymphocytes % (Auto) 42 % (10-50); Mean Corpuscular HGB Conc 33.4 g/dl (31.0-37.0); Mean Corpuscular Hemoglobin 32.3 pg (25.0-35.0); Mean Corpuscular Volume 97 fL (80-100); Monocytes # (Auto) 0.3 Thou/mm3 (0.0-0.8); Monocytes % (Auto) 7 % (0-12); Neutrophils # (Auto) 2.0 Thou/mm3 (1.8-7.7); Neutrophils % (Auto) 49 % (37-80); Nucleated Red Blood Cell # 0.00 Thou/mm3 (0.00-0.00); Nucleated Red Blood Cell % 0 /100 WBC (0); Platelet Count 74 Thou/mm3 (140-440); RDW Standard Deviation 50.9 fL (35.1-43.9); Red Blood Count 4.00 Miln/mm3 (4.50-5.90); White Blood Count 4.1 Thou/mm3 (3.8-10.6)
[2025-07-17 06:00] LABS: Slide Review Platelets confirmed
[2025-07-17 06:14] LABS: Alanine Aminotransferase 282 U/L (10-49); Albumin, Serum 4.2 gm/dL (3.5-5.0); Albumin/Globulin Ratio 1.3 (1.2-2.2); Alkaline Phosphatase 252 U/L (46-116); Anion Gap 8 (7-16); Aspartate Amino Transferase 432 U/L (0-34); BUN/Creatinine Ratio 9 Ratio (12-20); Bilirubin,Total 0.7 mg/dL (0.3-1.2); Blood Urea Nitrogen 6 mg/dL (9-23); Calcium 9.1 mg/dL (8.3-10.6); Calcium (Corrected) 9.1 mg/dL (8.5-10.1); Carbon Dioxide 26.9 mMol/L (20.0-31.0); Chloride 104 mMol/L (98-107); Creatinine (Component) 0.7 mg/dL (0.6-1.3); Estimated Creatinine Clearance 174.2 mL/min (>60); Globulin 3.3 gm/dL (2.3-3.5); Glucose 86 mg/dL (74-106); Magnesium 1.8 mg/dL (1.6-2.6); Osmolality,Calculated 274 (275-295); Phosphorous 3.3 mg/dL (2.4-5.1); Potassium 3.6 mMol/L (3.4-5.1); Sodium 139 mMol/L (136-145); Total Protein 7.5 gm/dL (5.7-8.2); eGFR > 60 See Note
[2025-07-17 08:00] VITALS: BP 119/92; PULSE 85; RESP 13; TEMP 36.8; O2SAT 97
[2025-07-17] MEDS: Magnesium Sulfate 2 GM Ivpb 2 GM/50 ML BAG IV (09:41)
[2025-07-17] MEDS: NICOTINE PATCH 14 MG/24 HR PATCH.TD24 TOP (09:42)
[2025-07-17] MEDS: levETIRAcetam LIQD 500 MG/5 ML UDC PO ×2 (09:42→20:59)
[2025-07-17] MEDS: THIAMINE INJ 100 MG/ML VIAL 2 ML IV (09:43)
[2025-07-17] MEDS: FOLIC ACID 1 MG TABLET PO (09:43)
[2025-07-17 12:00] VITALS: BP 134/90; PULSE 76; PULSE 90; RESP 35; TEMP 36.9; O2SAT 97
[2025-07-17] MEDS: NICOTINE PATCH 21 MG/24 HR PATCH.TD24 TOP (12:28)
[2025-07-17] MEDS: GABAPENTIN 300 MG CAPSULE PO ×2 (12:29→20:59)
[2025-07-17] MEDS: ACETAMINOPHEN 325 MG TABLET 650 MG PO ×2 (12:29→23:14)
--- NOTE | 2025-07-17 13:10 | PD.RESPRO ---
Documentation for date of: 07/17/25 Subjective Subjective Interval history: Patient seen and examined at bedside. CIWA 13, switch thiamine to oral, encouraging ambulation. Started gabapentin and Tylenol. Exam Vital Signs Temp Pulse Resp BP Pulse Ox O2 Del Method O2 Flow Rate 98.5 F 76 35 H 134/90 H 97 Room Air 2 07/17/25 12:00 07/17/25 12:00 07/17/25 12:00 07/17/25 12:00 07/17/25 12:00 07/17/25 12:00 07/15/25 08:00 Narrative Exam General: Disheveled man. No acute distress. Neurologic: GCS 15. Alert and oriented x3, no gross neurological deficit, and patient able to move all 4 extremities. HEENT: Normocephalic, atraumatic, mucous membranes moist. Pupils reactive to light. Heart: Regular rate and rhythm, normal S1 and S2, no murmurs. Lungs: Clear to auscultation bilaterally with no wheezing or crackles. Abdomen: Soft nontender nondistended. No guarding or rebound tenderness. Extremities: Chronic lymphedema in the bilateral lower extremities. 2+ radial and dorsalis pedis pulses bilaterally. Skin: Warm. Dry. No rash or ecchymoses. Objective Labs 07/17/25 04:55 07/17/25 04:55 Labs: Laboratory Results - last 24 hr 07/17/25 04:55 WBC 4.1 RBC 4.00 L Hgb 12.9 L Hct 38.6 L MCV 97 MCH 32.3 MCHC 33.4 RDW Std Deviation 50.9 H Plt Count 74 L Neut % (Auto) 49 Lymph % (Auto) 42 [place] % (Auto) 7 Eos % (Auto) 2 Baso % (Auto) 1 Neut # (Auto) 2.0 Lymph # (Auto) 1.7 [place] # (Auto) 0.3 Eos # (Auto) 0.1 Baso # (Auto) 0.0 Immature Gran # (Auto) 0.01 H Absolute Nucleated RBC 0.00 Immature Gran % 0 Nucleated RBC % 0 Sodium 139 Potassium 3.6 Chloride 104 Carbon Dioxide 26.9 Anion Gap 8 BUN 6 L Creatinine 0.7 Estim Creat Clear Calc 174.2 eGFR > 60 BUN/Creatinine Ratio 9 L Glucose 86 Calculated Osmolality 274 L Calcium 9.1 Corrected Calcium 9.1 Phosphorus 3.3 Magnesium 1.8 Total Bilirubin 0.7 AST 432 H ALT 282 H Alkaline Phosphatase 252 H Total Protein 7.5 Albumin 4.2 Globulin 3.3 Albumin/Globulin Ratio 1.3 Misc Test Result Platelets confirmed Quality Measures Quality Measures none Assessment & Plan Assessment Current Active Medications: Generic Name Dose Route Start Last Admin Trade Name Freq PRN Reason Stop Dose Admin Acetaminophen 650 mg 07/17/25 12:07 07/17/25 12:29 Acetaminophen 325 Mg Tablet PO 08/16/25 12:06 650 mg Q6HR PRN Administration HEADACHE Chlordiazepoxide HCl 25 mg 07/16/25 14:00 07/17/25 05:12 Chlordiazepoxide Hcl 25 Mg Capsule PO 07/21/25 13:59 25 mg TID LEANDRA Administration Dextrose 25 ml 07/15/25 03:54 Dextrose 50%-Water Inj 50 Ml Syringe IV 08/14/25 03:53 Q15MIN PRN BG 50-70 responsive npo pt Dextrose 50 ml 07/15/25 03:54 Dextrose 50%-Water Inj 50 Ml Syringe IV 08/14/25 03:53 Q15MIN PRN BG <50 OR BG <70 & pt unresponsive Folic Acid 1 mg 07/17/25 09:45 07/17/25 09:43 Folic Acid 1 Mg Tablet PO 08/16/25 09:44 1 mg QDAY LEANDRA Administration Gabapentin 300 mg 07/17/25 12:15 07/17/25 12:29 Gabapentin 300 Mg Capsule PO 08/16/25 12:14 300 mg BID LEANDRA Administration Glucagon 1 mg 07/15/25 03:54 Glucagon Inj 1 Mg Vial IM Q15MIN PRN BG <70, and no IV access Levetiracetam 500 mg 07/15/25 11:00 07/17/25 09:42 Levetiracetam Liqd 500 Mg/5 Ml Udc PO 08/14/25 10:59 500 mg BID LEANDRA Administration Lidocaine 1 patch 07/17/25 10:15 Lidocaine 5% 1 Patch TOP 08/16/25 10:14 UD PRN Back pain Lorazepam 0.5 mg 07/15/25 03:46 Lorazepam 2 Mg/Ml Vial IVP 07/20/25 03:45 Q2H PRN CIWA 2-6 Midazolam HCl 4 mg 07/15/25 03:41 07/16/25 22:59 Midazolam Inj 1 Mg/Ml Vial 2 Ml IVP 07/20/25 03:44 4 mg Q2H PRN Administration CIWA (12-20) Midazolam HCl 2 mg 07/15/25 03:46 07/17/25 12:39 Midazolam Inj 1 Mg/Ml Vial 2 Ml IVP 07/20/25 03:59 2 mg Q2H PRN Administration CIWA (7-11) Nicotine 21 mg 07/17/25 10:30 07/17/25 12:28 Nicotine Patch 21 Mg/24 Hr Patch.Td24 TOP 08/16/25 10:29 21 mg QDAY LEANDRA Administration Ondansetron HCl 4 mg 07/15/25 03:31 Ondansetron Inj 2 Mg/Ml Inj 2 Ml IVP 08/14/25 03:30 Q6H PRN NAUSEA OR VOMITING Protocol Pantoprazole Sodium 40 mg 07/15/25 09:00 07/17/25 09:43 Pantoprazole Inj 40 Mg Vial IVP 08/14/25 08:59 40 mg QDAY LEANDRA Administration Quetiapine Fumarate 300 mg 07/15/25 21:00 07/16/25 20:34 Quetiapine Fumarate 100 Mg Tablet PO 08/14/25 20:59 300 mg HS LEANDRA Administration Thiamine HCl 100 mg 07/18/25 09:00 Thiamine 100 Mg Tablet PO 08/17/25 08:59 QDAY LEANDRA Plan Summary: 35-year-old male with a history of homelessness, substance use disorder (including THC and methamphetamine use), possible schizophrenia, hypertension, and hyperlipidemia presents to the ED for alcohol withdrawal. #Alcohol intoxication #Alcohol withdrawal Patient has previous admissions for alcohol intoxication, alcohol level on admission 50.6 Unsure when last drink was CIWA at the time of ED presentation was 34, received phenobarbital 260 mg IV x 2, with CIWA improvement to 9 Will need to continue monitoring symptoms including hallucinations, restlessness, vital sign changes including tachycardia to monitor for withdrawal Patient's CIWA still elevated at 17 Plan: ? CIWA protocol ? CIWA 7-11 --> midazolam 2 mg IV every 2 hours as needed ? CIWA 12?20 --> midazolam 4 mg IV every 2 hours as needed ? Chlordiazepoxide 25 mg p.o. 3 times daily ? Thiamine 100 mg p.o. daily ? Folic acid 1 mg PO daily ? Seizure precautions ? Aspiration precautions #Chronic alcohol use #Transaminitis AST 507, ALT 201, alk phos 280 Hep panel negative Abdominal ultrasound showed severe hepatic steatosis, likely due to alcohol abuse PT and INR within normal parameters Patient's abdominal pain has improved AST ALT remain elevated and stable Lipase negative Plan: ? Monitor LFTs with daily labs #Schizophrenia Patient takes Seroquel per med rec Patient mentions that he has been compliant with Seroquel Plan: ? Continue Seroquel 300 mg p.o. at bedtime #Seizure disorder Patient takes Keppra 500 mg p.o. twice daily per med rec Keppra level ordered Patient mentions that he has not been taking Keppra Plan: ? Continue Keppra 500 mg p.o. twice daily #Thrombocytopenia In the setting of alcoholic liver disease Platelet count on admission 98, stable No concern at the moment for bleeding Plan ? Monitor with daily CBC ? DC heparin #Hyperlipidemia ? Cholesterol and LDL cholesterol elevated ? Patient has elevated AST and ALT Plan: ? Consider starting statin upon discharge, though the patient has an issue with noncompliance and alcohol abuse ? Consider ezetimibe upon discharge #Stage II hypertension ? Patient has had stage II hypertension ? Per med rec the patient does not appear to be on any antihypertensives ? BP has been stable since admission Plan: ? Consider GDMT upon discharge with losartan #Neuropathy ? Patient takes gabapentin ? Patient mentions neuropathic pain in his legs Plan: ? Gabapentin 300 mg twice daily ? Tylenol 650 p.o. every 6 hours as needed #History of anxiety #Homeless #Polysubstance abuse, THC and methamphetamine #Hx of Alcohol abuse THC seen in U tox, alcohol level of 50.6 on admission Plan: ? Referral to social worker clinical Health Maintenance: Diet: Regular diet GI prophylaxis: Protonix 40 mg IV daily DVT prophylaxis: Heparin 5000 units SC every 12 hours Antibiotics: None CODE STATUS: Full Disposition: Telemetry for close monitoring, CIWA protocol remains in place, patient receiving midazolam as needed for withdrawals, continuing Keppra and Seroquel, started gabapentin and Tylenol, changed thiamine and folic acid to p.o., physical therapy ordered. Patient was seen and discussed with my attending physician Dr. Yusuf ANGEL. Avtar Rogers DO PGY-1. Attending Provider Attestation/Addendum Marcelina Martini DO, attest that I was physically present for the [place] portions of the service and evaluated the patient with the resident and I reviewed and discussed the case with the resident and agree with the resident's findings and plans of care as documented above Patient seen and evaluated this AM. He is frustrated and stated that he has a bad headache, he continues to have auditory hallucinations, pins and needles in his b/l LE and pain in his feet. Suspect peripheral neuropathy as patient reports pain in both feet. Will start gabapentin. CIWA score remains high at 18. Will continue with current management. Patient states he is very tremulous and thus he does not get out of bed and only goes to the bathroom. Will order PT.
[2025-07-17 14:04] VITALS: BMI 14.0
[2025-07-17 16:00] VITALS: BP 130/95; PULSE 73; PULSE 79; RESP 13; TEMP 35.9; O2SAT 97
[2025-07-17 20:00] VITALS: BP 142/103; PULSE 108; PULSE 80; RESP 20; TEMP 37.3; O2SAT 95
[2025-07-18] VITALS (9 sets, daily range): BP systolic 121–142; BP diastolic 80–97; PULSE 75–104; RESP 14–20; TEMP 36.1–37.4; O2SAT 94–98; BMI 31.7; BMI 31.6
[2025-07-18] MEDS: MIDAZOLAM INJ 1 MG/ML VIAL 2 ML 2 MG IVP ×3 (04:31→17:29)
[2025-07-18 05:42] LABS: Phosphorous 4.0 mg/dL (2.4-5.1)
[2025-07-18 06:41] LABS: Levetiracetam (Keppra)* <2.0 mcg/mL (6.0-46.0)
[2025-07-18] MEDS: NICOTINE PATCH 21 MG/24 HR PATCH.TD24 TOP ×2 (08:37→17:30)
[2025-07-18] MEDS: GABAPENTIN 300 MG CAPSULE PO (08:38)
[2025-07-18] MEDS: THIAMINE 100 MG TABLET PO (08:38)
[2025-07-18] MEDS: FOLIC ACID 1 MG TABLET PO (08:38)
[2025-07-18] MEDS: levETIRAcetam LIQD 500 MG/5 ML UDC PO ×2 (08:38→21:07)
[2025-07-18] MEDS: LORazepam 2 MG/ML VIAL 0.5 MG IVP ×2 (08:39→23:13)
[2025-07-18 10:58] LABS: Basophils # (Auto) 0.0 Thou/mm3 (0.0-0.2); Basophils % (Auto) 1 % (0-2.5); Eosinophils # (Auto) 0.1 Thou/mm3 (0.0-0.5); Eosinophils % (Auto) 2 % (0-10); Hematocrit 40.0 % (41.0-53.0); Hemoglobin 13.2 g/dL (13.5-16.0); Immature Granulocytes Auto 0.02 Thou/mm3 (0.00-0.00); Lymphocytes # (Auto) 1.8 Thou/mm3 (1.0-4.8); Lymphocytes % (Auto) 36 % (10-50); Mean Corpuscular HGB Conc 33.0 g/dl (31.0-37.0); Mean Corpuscular Hemoglobin 32.5 pg (25.0-35.0); Mean Corpuscular Volume 99 fL (80-100); Monocytes # (Auto) 0.3 Thou/mm3 (0.0-0.8); Monocytes % (Auto) 6 % (0-12); Neutrophils # (Auto) 2.7 Thou/mm3 (1.8-7.7); Neutrophils % (Auto) 55 % (37-80); Nucleated Red Blood Cell # 0.00 Thou/mm3 (0.00-0.00); Nucleated Red Blood Cell % 0 /100 WBC (0); Platelet Count 84 Thou/mm3 (140-440); RDW Standard Deviation 53.4 fL (35.1-43.9); Red Blood Count 4.06 Miln/mm3 (4.50-5.90); White Blood Count 5.0 Thou/mm3 (3.8-10.6)
--- NOTE | 2025-07-18 10:58 | ESPR_ITS ---
<Statement entered by Ramírez Borges MD - 07/18/25 16:35> Patient is seen at bedside this morning current CIWA is approximately 9. Patient continues to have auditory hallucinations therefore we will continue CIWA protocols. Patient is also complaining of significant back pain from a previous Worker's Comp. injury and states nothing works. Will try tramadol and offered lidocaine patch. Will decrease Librium to twice daily and start patient on tramadol 50 mg every 6 hours. Patient was seen and examined by me personally. I have directly supervised and reviewed documentation by the team resident and agree with its findings. ------- Plan of care was discussed with the attending, Dr. Yusuf Borges, PGY-2 Documentation for date of: 07/18/25 Subjective Subjective Interval history: Patient seen and examined at bedside. CIWA 8 on exam. Patient still complaining of headache, back pain, auditory hallucinations, and diaphoresis. Patient still complaining of back pain despite Tylenol and Gabapentin, refused lidocaine patch. Will start tramadol 50 mg every 6 as needed. Decreased Librium to twice daily from 3 times daily. Increased Seroquel from 300 to 400 mg nightly. Exam Vital Signs Temp Pulse Resp BP Pulse Ox O2 Del Method O2 Flow Rate 97.0 F 80 20 132/89 H 97 Room Air 2 07/18/25 08:00 07/18/25 08:00 07/18/25 08:00 07/18/25 08:00 07/18/25 08:00 07/18/25 08:00 07/15/25 08:00 Narrative Exam General: Disheveled man. No acute distress. Neurologic: GCS 15. Alert and oriented x3, no gross neurological deficit, and patient able to move all 4 extremities. HEENT: Normocephalic, atraumatic, mucous membranes moist. Pupils reactive to light. Heart: Regular rate and rhythm, normal S1 and S2, no murmurs. Lungs: Clear to auscultation bilaterally with no wheezing or crackles. Abdomen: Soft nontender nondistended. No guarding or rebound tenderness. Extremities: Chronic lymphedema in the bilateral lower extremities. 2+ radial and dorsalis pedis pulses bilaterally. Skin: Warm. Dry. No rash or ecchymoses. Objective Labs 07/18/25 05:00 07/18/25 05:00 Labs: Laboratory Results - last 24 hr 07/15/25 07/18/25 04:32 05:00 Phosphorus 4.0 Levetiracetam <2.0 L Quality Measures Quality Measures none Assessment & Plan Assessment Current Active Medications: Generic Name Dose Route Start Last Admin Trade Name Freq PRN Reason Stop Dose Admin Acetaminophen 650 mg 07/17/25 12:07 07/17/25 23:14 Acetaminophen 325 Mg Tablet PO 08/16/25 12:06 650 mg Q6HR PRN Administration HEADACHE Chlordiazepoxide HCl 25 mg 07/16/25 14:00 07/18/25 05:33 Chlordiazepoxide Hcl 25 Mg Capsule PO 07/21/25 13:59 25 mg TID LEANDRA Administration Dextrose 25 ml 07/15/25 03:54 Dextrose 50%-Water Inj 50 Ml Syringe IV 08/14/25 03:53 Q15MIN PRN BG 50-70 responsive npo pt Dextrose 50 ml 07/15/25 03:54 Dextrose 50%-Water Inj 50 Ml Syringe IV 08/14/25 03:53 Q15MIN PRN BG <50 OR BG <70 & pt unresponsive Folic Acid 1 mg 07/17/25 09:45 07/18/25 08:38 Folic Acid 1 Mg Tablet PO 08/16/25 09:44 1 mg QDAY LEANDRA Administration Gabapentin 300 mg 07/17/25 12:15 07/18/25 08:38 Gabapentin 300 Mg Capsule PO 08/16/25 12:14 300 mg BID LEANDRA Administration Glucagon 1 mg 07/15/25 03:54 Glucagon Inj 1 Mg Vial IM Q15MIN PRN BG <70, and no IV access Levetiracetam 500 mg 07/15/25 11:00 07/18/25 08:38 Levetiracetam Liqd 500 Mg/5 Ml Udc PO 08/14/25 10:59 500 mg BID LEANDRA Administration Lidocaine 1 patch 07/17/25 10:15 Lidocaine 5% 1 Patch TOP 08/16/25 10:14 UD PRN Back pain Lorazepam 0.5 mg 07/15/25 03:46 07/18/25 08:39 Lorazepam 2 Mg/Ml Vial IVP 07/20/25 03:45 0.5 mg Q2H PRN Administration CIWA 2-6 Midazolam HCl 4 mg 07/15/25 03:41 07/16/25 22:59 Midazolam Inj 1 Mg/Ml Vial 2 Ml IVP 07/20/25 03:44 4 mg Q2H PRN Administration CIWA (12-20) Midazolam HCl 2 mg 07/15/25 03:46 07/18/25 04:31 Midazolam Inj 1 Mg/Ml Vial 2 Ml IVP 07/20/25 03:59 2 mg Q2H PRN Administration CIWA (7-11) Nicotine 21 mg 07/17/25 10:30 07/18/25 08:37 Nicotine Patch 21 Mg/24 Hr Patch.Td24 TOP 08/16/25 10:29 21 mg QDAY LEANDRA Administration Ondansetron HCl 4 mg 07/15/25 03:31 Ondansetron Inj 2 Mg/Ml Inj 2 Ml IVP 08/14/25 03:30 Q6H PRN NAUSEA OR VOMITING Protocol Pantoprazole Sodium 40 mg 07/15/25 09:00 07/18/25 08:38 Pantoprazole Inj 40 Mg Vial IVP 08/14/25 08:59 40 mg QDAY LEANDRA Administration Quetiapine Fumarate 300 mg 07/15/25 21:00 07/17/25 20:59 Quetiapine Fumarate 100 Mg Tablet PO 08/14/25 20:59 300 mg HS LEANDRA Administration Thiamine HCl 100 mg 07/18/25 09:00 07/18/25 08:38 Thiamine 100 Mg Tablet PO 08/17/25 08:59 100 mg QDAY LEANDRA Administration Plan Summary: 35-year-old male with a history of homelessness, substance use disorder (including THC and methamphetamine use), possible schizophrenia, hypertension, and hyperlipidemia presents to the ED for alcohol withdrawal. #Acute Alcohol withdrawal #Alcohol intoxication Patient has previous admissions for alcohol intoxication, alcohol level on admission 50.6 Unsure when last drink was CIWA at the time of ED presentation was 34, received phenobarbital 260 mg IV x 2, with CIWA improvement to 9 Will need to continue monitoring symptoms including hallucinations, restlessness, vital sign changes including tachycardia to monitor for withdrawal Patient's CIWA still elevated at 17 Plan: ? CIWA protocol ? CIWA 7-11 --> midazolam 2 mg IV every 2 hours as needed ? CIWA 12?20 --> midazolam 4 mg IV every 2 hours as needed ? Chlordiazepoxide 25 mg p.o. 3 times daily, changed to twice daily on 07/18/2025 ? Thiamine 100 mg p.o. daily ? Folic acid 1 mg PO daily ? Seizure precautions ? Aspiration precautions #Chronic alcohol use #Transaminitis AST 507, ALT 201, alk phos 280 Hep panel negative Abdominal ultrasound showed severe hepatic steatosis, likely due to alcohol abuse PT and INR within normal parameters Patient's abdominal pain has improved AST ALT remain elevated and stable Lipase negative Plan: ? Monitor LFTs with daily labs #Schizophrenia Patient takes Seroquel per med rec Patient mentions that he has been compliant with Seroquel Patient still endorses auditory hallucinations described as voices talking, difficult to determine if these are related to alcohol withdrawal versus his history of schizophrenia, likely multifactorial Patient denies any suicidal or homicidal ideations, he mentions that the voices he is hearing are not telling him to hurt himself or others Plan: ? Seroquel 300 mg p.o. at bedtime, changed to 400 mg on 07/18/2025 #Seizure disorder Patient takes Keppra 500 mg p.o. twice daily per med rec Keppra level ordered Patient mentions that he has not been taking Keppra Plan: ? Continue Keppra 500 mg p.o. twice daily #Thrombocytopenia In the setting of alcoholic liver disease Platelet count on admission 98, stable No concern at the moment for bleeding Plan ? Monitor with daily CBC ? DC heparin #Hyperlipidemia ? Cholesterol and LDL cholesterol elevated ? Patient has elevated AST and ALT Plan: ? Consider starting statin upon discharge, though the patient has an issue with noncompliance and alcohol abuse ? Consider ezetimibe upon discharge #Stage II hypertension ? Patient has had stage II hypertension ? Per med rec the patient does not appear to be on any antihypertensives ? BP has been stable since admission Plan: ? Consider GDMT upon discharge with losartan #Neuropathy #Back pain secondary to herniated disc ? Patient takes gabapentin ? Patient mentions neuropathic pain in his legs - Patient mentions that he has a herniated disc in his lumbar region, he does not take any pain medication for chronic management, he mentions that he drinks alcohol to alleviate the pain Plan: ? Gabapentin 300 mg twice daily ? Tylenol 650 p.o. every 6 hours as needed - Tramadol 50 mg every 6 as needed #History of anxiety #Homeless #Polysubstance abuse, THC and methamphetamine #Hx of Alcohol abuse THC seen in U tox, alcohol level of 50.6 on admission Plan: ? Referral to manager social responsibility Health Maintenance: Diet: Regular diet GI prophylaxis: Protonix 40 mg IV daily DVT prophylaxis: Heparin 5000 units SC every 12 hours Antibiotics: None CODE STATUS: Full Disposition: Telemetry for close monitoring, CIWA protocol remains in place, patient receiving midazolam as needed for withdrawals, continuing Keppra and increased his dose of Seroquel, started tramadol as needed for back pain. Decrease Librium from 3 times daily to twice daily. Patient was seen and discussed with my attending physician Dr. Yusuf ANGEL and my senior resident Dr. Jony WHEELER PGY-2. Avtar Rogers DO PGY-1. Attending Provider Attestation/Addendum I, Marcelina Goldberg DO, attest that I was physically present for the [place] portions of the service and evaluated the patient with the resident and I reviewed and discussed the case with the resident and agree with the resident's findings and plans of care as documented above Patient seen and evaluated this AM. No acute events overnight. However, patient continues to complain of headache and leg pain. He states that he usually takes gabapentin 800mg PO TID and seroquel 600mg po qHS. However, he also states that he has not been taking his medications for several months [place] [address] Will slowly uptitrate his seroquel and gabapentin. Patient appears much improved and CIWA score is 10. Patient continues to hear voices. However, tremors are much improved. Will taper librium.
[2025-07-18 11:13] LABS: Alanine Aminotransferase 331 U/L (10-49); Albumin, Serum 4.1 gm/dL (3.5-5.0); Albumin/Globulin Ratio 1.3 (1.2-2.2); Alkaline Phosphatase 235 U/L (46-116); Anion Gap 7 (7-16); Aspartate Amino Transferase 381 U/L (0-34); BUN/Creatinine Ratio 11 Ratio (12-20); Bilirubin,Total 0.6 mg/dL (0.3-1.2); Blood Urea Nitrogen 8 mg/dL (9-23); Calcium 9.3 mg/dL (8.3-10.6); Calcium (Corrected) 9.3 mg/dL (8.5-10.1); Carbon Dioxide 27.8 mMol/L (20.0-31.0); Chloride 105 mMol/L (98-107); Creatinine (Component) 0.7 mg/dL (0.6-1.3); Estimated Creatinine Clearance 181.9 mL/min (>60); Globulin 3.1 gm/dL (2.3-3.5); Glucose 82 mg/dL (74-106); Osmolality,Calculated 276 (275-295); Potassium 4.5 mMol/L (3.4-5.1); Sodium 140 mMol/L (136-145); Total Protein 7.2 gm/dL (5.7-8.2); eGFR > 60 See Note
--- NOTE | 2025-07-18 14:52 | PC.SS ---
rounding note: CIWA is a 9 now. Patient is homeless. Ambulatory. Possible d/c tomorrow
[2025-07-18] MEDS: GABAPENTIN 100 MG CAPSULE 400 MG PO (22:15)
[2025-07-19] VITALS (9 sets, daily range): BP systolic 127–141; BP diastolic 87–98; PULSE 86–107; RESP 18–19; TEMP 36.1–37; O2SAT 92–98; BMI 31.6
[2025-07-19 05:29] LABS: Basophils # (Auto) 0.0 Thou/mm3 (0.0-0.2); Basophils % (Auto) 1 % (0-2.5); Eosinophils # (Auto) 0.1 Thou/mm3 (0.0-0.5); Eosinophils % (Auto) 2 % (0-10); Hematocrit 38.7 % (41.0-53.0); Hemoglobin 13.1 g/dL (13.5-16.0); Immature Granulocytes Auto 0.02 Thou/mm3 (0.00-0.00); Lymphocytes # (Auto) 1.8 Thou/mm3 (1.0-4.8); Lymphocytes % (Auto) 32 % (10-50); Mean Corpuscular HGB Conc 33.9 g/dl (31.0-37.0); Mean Corpuscular Hemoglobin 32.8 pg (25.0-35.0); Mean Corpuscular Volume 97 fL (80-100); Monocytes # (Auto) 0.4 Thou/mm3 (0.0-0.8); Monocytes % (Auto) 7 % (0-12); Neutrophils # (Auto) 3.2 Thou/mm3 (1.8-7.7); Neutrophils % (Auto) 58 % (37-80); Nucleated Red Blood Cell # 0.00 Thou/mm3 (0.00-0.00); Nucleated Red Blood Cell % 0 /100 WBC (0); Platelet Count 103 Thou/mm3 (140-440); RDW Standard Deviation 52.2 fL (35.1-43.9); Red Blood Count 3.99 Miln/mm3 (4.50-5.90); White Blood Count 5.6 Thou/mm3 (3.8-10.6)
[2025-07-19 05:52] LABS: Alanine Aminotransferase 308 U/L (10-49); Albumin, Serum 4.3 gm/dL (3.5-5.0); Albumin/Globulin Ratio 1.3 (1.2-2.2); Alkaline Phosphatase 219 U/L (46-116); Anion Gap 8 (7-16); Aspartate Amino Transferase 303 U/L (0-34); BUN/Creatinine Ratio 13 Ratio (12-20); Bilirubin,Total 0.5 mg/dL (0.3-1.2); Blood Urea Nitrogen 10 mg/dL (9-23); Calcium 9.5 mg/dL (8.3-10.6); Calcium (Corrected) 9.5 mg/dL (8.5-10.1); Carbon Dioxide 29.5 mMol/L (20.0-31.0); Chloride 104 mMol/L (98-107); Creatinine (Component) 0.8 mg/dL (0.6-1.3); Estimated Creatinine Clearance 159.2 mL/min (>60); Globulin 3.4 gm/dL (2.3-3.5); Glucose 86 mg/dL (74-106); Osmolality,Calculated 279 (275-295); Potassium 4.2 mMol/L (3.4-5.1); Sodium 141 mMol/L (136-145); Total Protein 7.7 gm/dL (5.7-8.2); eGFR > 60 See Note
[2025-07-19] MEDS: GABAPENTIN 100 MG CAPSULE 400 MG PO ×3 (06:15→21:25)
[2025-07-19] MEDS: MIDAZOLAM INJ 1 MG/ML VIAL 2 ML 4 MG IVP ×4 (08:23→21:25)
[2025-07-19] MEDS: levETIRAcetam LIQD 500 MG/5 ML UDC PO ×2 (08:24→20:22)
[2025-07-19] MEDS: THIAMINE 100 MG TABLET PO (08:24)
[2025-07-19] MEDS: FOLIC ACID 1 MG TABLET PO (08:24)
[2025-07-19] MEDS: NICOTINE PATCH 21 MG/24 HR PATCH.TD24 TOP (08:25)
--- NOTE | 2025-07-19 08:31 | ESPR_ITS ---
<Statement entered by Ramírez Borges MD - 07/19/25 16:29> pt is seen at bedside, CIWA remained between 8-10. Pt endorses to auditory hallucination and aggitation. will continue CIWA protocol and add olanzapine HS for psychosis as pt does have history of psychosis. EKG was ordered before starting olanzipine and QTc is not prolonged. will continue to monitor for improvement of symptoms. Patient was seen and examined by me personally. I have directly supervised and reviewed documentation by the team resident and agree with its findings. ------- Plan of care was discussed with the attending, Dr. Jasmyne Borges, PGY-2 Documentation for date of: 07/19/25 Subjective Subjective Interval history: patient seen and examined at bedside CIWA in the Am was documented as 12. pt continues to endorse visual and auditory hallucinations, suspect that his psychosis is 2/2 possible schizophrenia rather than so[place] due to his etoh withdrawal, pt endorses hearing voices at his baseline, even when drinking alcohol. will start olanzipine 5 mg qhs will give flexorl for back pain and continue with tramadol. will get ekgs q3 days given antipsychotics, qtc on ekg today 429 Exam Vital Signs Temp Pulse Resp BP Pulse Ox O2 Del Method O2 Flow Rate 97.3 F 92 19 127/95 H 95 Room Air 2 07/19/25 04:00 07/19/25 04:00 07/19/25 04:00 07/19/25 04:00 07/19/25 04:00 07/19/25 04:00 07/15/25 08:00 Narrative Exam General: poor hygiene. No acute distress. Neurologic: GCS 15. Alert and oriented x3, no gross neurological deficit, and patient able to move all 4 extremities. HEENT: Normocephalic, atraumatic, mucous membranes moist. Pupils reactive to light. Heart: Regular rate and rhythm, normal S1 and S2, no murmurs. Lungs: Clear to auscultation bilaterally with no wheezing or crackles. Abdomen: Soft nontender nondistended. No guarding or rebound tenderness. Extremities: Chronic lymphedema in the bilateral lower extremities. 2+ radial and dorsalis pedis pulses bilaterally. Skin: Warm. Dry. No rash or ecchymoses. psych: endorses auditory and visual hallucinations. Objective Labs 07/20/25 04:30 07/20/25 04:30 Labs: Laboratory Results - last 24 hr 07/18/25 07/19/25 05:00 04:59 WBC 5.0 5.6 RBC 4.06 L 3.99 L Hgb 13.2 L 13.1 L Hct 40.0 L 38.7 L MCV 99 97 MCH 32.5 32.8 MCHC 33.0 33.9 RDW Std Deviation 53.4 H 52.2 H Plt Count 84 L 103 L D Neut % (Auto) 55 58 Lymph % (Auto) 36 32 [place] % (Auto) 6 7 Eos % (Auto) 2 2 Baso % (Auto) 1 1 Neut # (Auto) 2.7 3.2 Lymph # (Auto) 1.8 1.8 [place] # (Auto) 0.3 0.4 Eos # (Auto) 0.1 0.1 Baso # (Auto) 0.0 0.0 Immature Gran # (Auto) 0.02 H 0.02 H Absolute Nucleated RBC 0.00 0.00 Immature Gran % 0 0 Nucleated RBC % 0 0 Sodium 140 141 Potassium 4.5 D 4.2 Chloride 105 104 Carbon Dioxide 27.8 29.5 Anion Gap 7 8 BUN 8 L 10 Creatinine 0.7 0.8 Estim Creat Clear Calc 181.9 159.2 eGFR > 60 > 60 BUN/Creatinine Ratio 11 L 13 Glucose 82 86 Calculated Osmolality 276 279 Calcium 9.3 9.5 Corrected Calcium 9.3 9.5 Total Bilirubin 0.6 0.5 AST 381 H 303 H ALT 331 H 308 H Alkaline Phosphatase 235 H 219 H Total Protein 7.2 7.7 Albumin 4.1 4.3 Globulin 3.1 3.4 Albumin/Globulin Ratio 1.3 1.3 Quality Measures Quality Measures VTE prophylaxis Assessment & Plan Assessment Current Active Medications: Generic Name Dose Route Start Last Admin Trade Name Freq PRN Reason Stop Dose Admin Acetaminophen 650 mg 07/17/25 12:07 07/17/25 23:14 Acetaminophen 325 Mg Tablet PO 08/16/25 12:06 650 mg Q6HR PRN Administration HEADACHE Chlordiazepoxide HCl 25 mg 07/18/25 21:00 07/19/25 08:24 Chlordiazepoxide Hcl 25 Mg Capsule PO 07/23/25 20:59 25 mg BID LEANDRA Administration Dextrose 25 ml 07/15/25 03:54 Dextrose 50%-Water Inj 50 Ml Syringe IV 12/07/25 03:53 Q15MIN PRN BG 50-70 responsive npo pt Dextrose 50 ml 07/15/25 03:54 Dextrose 50%-Water Inj 50 Ml Syringe IV 08/14/25 03:53 Q15MIN PRN BG <50 OR BG <70 & pt unresponsive Folic Acid 1 mg 07/17/25 09:45 07/19/25 08:24 Folic Acid 1 Mg Tablet PO 08/16/25 09:44 1 mg QDAY LEANDRA Administration Gabapentin 400 mg 07/18/25 22:05 07/19/25 06:15 Gabapentin 100 Mg Capsule PO 08/17/25 22:04 400 mg TID LEANDRA Administration Glucagon 1 mg 07/15/25 03:54 Glucagon Inj 1 Mg Vial IM Q15MIN PRN BG <70, and no IV access Levetiracetam 500 mg 07/15/25 11:00 07/19/25 08:24 Levetiracetam Liqd 500 Mg/5 Ml Udc PO 08/14/25 10:59 500 mg BID LEANDRA Administration Lidocaine 1 patch 07/17/25 10:15 Lidocaine 5% 1 Patch TOP 08/16/25 10:14 UD PRN Back pain Lorazepam 0.5 mg 07/15/25 03:46 07/18/25 23:13 Lorazepam 2 Mg/Ml Vial IVP 07/20/25 03:45 0.5 mg Q2H PRN Administration CIWA 2-6 Midazolam HCl 4 mg 07/15/25 03:41 07/19/25 08:23 Midazolam Inj 1 Mg/Ml Vial 2 Ml IVP 07/20/25 03:44 4 mg Q2H PRN Administration CIWA (12-20) Midazolam HCl 2 mg 07/15/25 03:46 07/18/25 17:29 Midazolam Inj 1 Mg/Ml Vial 2 Ml IVP 07/20/25 03:59 2 mg Q2H PRN Administration CIWA (7-11) Nicotine 21 mg 07/18/25 17:03 07/19/25 08:25 Nicotine Patch 21 Mg/24 Hr Patch.Td24 TOP 08/17/25 17:02 21 mg QDAY LEANDRA Administration Ondansetron HCl 4 mg 07/15/25 03:31 Ondansetron Inj 2 Mg/Ml Inj 2 Ml IVP 08/14/25 03:30 Q6H PRN NAUSEA OR VOMITING Protocol Pantoprazole Sodium 40 mg 07/15/25 09:00 07/19/25 08:24 Pantoprazole Inj 40 Mg Vial IVP 08/14/25 08:59 40 mg QDAY LEANDRA Administration Quetiapine Fumarate 400 mg 07/18/25 21:00 07/18/25 21:07 Quetiapine Fumarate 100 Mg Tablet PO 08/17/25 20:59 400 mg HS LEANDRA Administration Thiamine HCl 100 mg 07/18/25 09:00 07/19/25 08:24 Thiamine 100 Mg Tablet PO 08/17/25 08:59 100 mg QDAY LEANDRA Administration Tramadol HCl 50 mg 07/18/25 16:23 07/18/25 17:30 Tramadol Hcl 50 Mg Tablet PO 07/23/25 16:22 50 mg Q6HR PRN Administration PAIN 5-10 Plan Mr. Acuna is a 35-year-old gentleman with a history of homelessness, substance use disorder (including THC and methamphetamine use), suspected schizophrenia/ baseline psychosis, hypertension, and hyperlipidemia presents to the ED for alcohol withdrawal, continues to have visual and auditory hallucinations, suspect that they are 2/2 psychosis rather than etoh withdrawal. #Acute Alcohol withdrawal #Alcohol intoxication Patient has previous admissions for alcohol intoxication, alcohol level on admission 50.6 Unsure when last drink was CIWA at the time of ED presentation was 34, received phenobarbital 260 mg IV x 2, with CIWA improvement to 9 Will need to continue monitoring symptoms including hallucinations, restlessness, vital sign changes including tachycardia to monitor for withdrawal Patient's CIWA still elevated at 12 Plan: ? CIWA protocol ? CIWA 7-11 --> midazolam 2 mg IV every 2 hours as needed ? CIWA 12?20 --> midazolam 4 mg IV every 2 hours as needed ? Chlordiazepoxide 25 mg p.o. 3 times daily, changed to twice daily on 07/18/2025 ? Thiamine 100 mg p.o. daily ? Folic acid 1 mg PO daily ? Seizure precautions ? Aspiration precautions #Chronic alcohol use #Transaminitis- downtrending AST 507, ALT 201, alk phos 280 Hep panel negative Abdominal ultrasound showed severe hepatic steatosis, likely due to alcohol abuse PT and INR within normal parameters Patient's abdominal pain has improved AST ALT remain elevated and stable Lipase negative Plan: ? Monitor LFTs with daily labs #suspected Schizophrenia #psychosis Patient takes Seroquel per med rec Patient mentions that he has been compliant with Seroquel Patient still endorses auditory hallucinations described as voices talking, difficult to determine if these are related to alcohol withdrawal versus his history of schizophrenia, likely multifactorial Patient denies any suicidal or homicidal ideations, he mentions that the voices he is hearing are not telling him to hurt himself or others Patient states that he always hears voices and has visual hallucinations, suspect that this may be his baseline. he states that the seroquel used to quiet the noises more but that he relies on alcohol to quiet the voices. Plan: ? Seroquel 300 mg p.o. at bedtime, changed to 400 mg on 07/18/2025 - start Olanzapine 5 mg qhs - monitor qtc, given qtc prolonging agents - ekg q3 days #Seizure disorder Patient takes Keppra 500 mg p.o. twice daily per med rec Keppra level ordered Patient mentions that he has not been taking Keppra Plan: ? Continue Keppra 500 mg p.o. twice daily #Thrombocytopenia In the setting of alcoholic liver disease Platelet count on admission 98, stable No concern at the moment for bleeding Plan ? Monitor with daily CBC ? DC heparin #Hyperlipidemia ? Cholesterol and LDL cholesterol elevated ? Patient has elevated AST and ALT Plan: ? Consider starting statin upon discharge, though the patient has an issue with noncompliance and alcohol abuse ? Consider ezetimibe upon discharge #Stage II hypertension ? Patient has had stage II hypertension ? Per med rec the patient does not appear to be on any antihypertensives ? BP has been stable since admission Plan: ? Consider GDMT upon discharge with losartan #Neuropathy #Back pain secondary to herniated disc ? Patient takes gabapentin ? Patient mentions neuropathic pain in his legs - Patient mentions that he has a herniated disc in his lumbar region, he does not take any pain medication for chronic management, he mentions that he drinks alcohol to alleviate the pain Plan: ? Gabapentin 300 mg twice daily ? Tylenol 650 p.o. every 6 hours as needed - Tramadol 50 mg every 6 as needed - cyclobenzeprine 5 mg BID scheduled #History of anxiety #Homeless #Polysubstance abuse, THC and methamphetamine #Hx of Alcohol abuse THC seen in U tox, alcohol level of 50.6 on admission Plan: ? Referral to renal social worker Health Maintenance: Diet: Regular diet GI prophylaxis: Protonix 40 mg IV daily DVT prophylaxis: d/c heparin given thrombocytopenia Antibiotics: None CODE STATUS: Full Disposition: Telemetry for close monitoring, CIWA protocol remains in place, patient receiving midazolam as needed for withdrawals, continuing Keppra and increased his dose of Seroquel, started tramadol as needed for back pain. librium bid. Plan discussed with my attending Dr. Medley and my senior resident Dr. Pam Tanner MD PGY1 Attending Provider Attestation/Addendum I reviewed labs, imaging, EKG, home medications and prior available records. Face to face evaluation was performed by me. I have personally examined the patient and discussed assessment and plan with the IM team. I reviewed the resident note and agree with the plan with exceptions as below. Alcohol abuse Alcohol withdrawal Possible associated psychosis Thrombocytopenia Transaminitis Continue CIWA protocol Continue quetiapine Added olanzapine Checked EKG: No QTc prolongation Monitor platelet level Monitor LFTs
--- NOTE | 2025-07-19 11:20 | EKG_ITS ---
[facility] Test Date: 2025-07-19 Pat Name: MARVIN PRICE Department: Room: S364A Gender: Male Interactive Project Manager: NATHANIEL : 1990 Requested By: Gracia Tanner Order Number: [id number] Reading MD: Gracia Tanner Measurements Intervals [place] Rate: 99 P: 63 WI: 145 QRS: -3 QRSD: 97 T: 40 QT: 334 QTc: 429 Interpretive Statements SINUS RHYTHM POSSIBLE ANTERIOR MYOCARDIAL INFARCTION , OF INDETERMINATE AGE Compared to ECG 04/21/2025 15:23:48 Myocardial infarct finding now present Sinus tachycardia no longer present /store/[id number]
[2025-07-19] MEDS: LIDOCAINE 5% 1 PATCH TOP (16:42)
[2025-07-20] VITALS (8 sets, daily range): BP systolic 115–137; BP diastolic 79–100; PULSE 75–110; RESP 13–27; TEMP 36.1–37; O2SAT 95–98; BMI 31.6
[2025-07-20] MEDS: MIDAZOLAM INJ 1 MG/ML VIAL 2 ML 2 MG IVP ×2 (00:02→04:22)
[2025-07-20] MEDS: GABAPENTIN 100 MG CAPSULE 400 MG PO ×3 (05:15→21:30)
[2025-07-20 05:51] LABS: Alanine Aminotransferase 358 U/L (10-49); Albumin, Serum 4.5 gm/dL (3.5-5.0); Albumin/Globulin Ratio 1.4 (1.2-2.2); Alkaline Phosphatase 208 U/L (46-116); Anion Gap 10 (7-16); Aspartate Amino Transferase 350 U/L (0-34); BUN/Creatinine Ratio 13 Ratio (12-20); Bilirubin,Total 0.5 mg/dL (0.3-1.2); Blood Urea Nitrogen 8 mg/dL (9-23); Calcium 9.2 mg/dL (8.3-10.6); Calcium (Corrected) 9.2 mg/dL (8.5-10.1); Carbon Dioxide 25.2 mMol/L (20.0-31.0); Chloride 104 mMol/L (98-107); Creatinine (Component) 0.6 mg/dL (0.6-1.3); Estimated Creatinine Clearance 212.2 mL/min (>60); Globulin 3.3 gm/dL (2.3-3.5); Glucose 90 mg/dL (74-106); Magnesium 1.7 mg/dL (1.6-2.6); Osmolality,Calculated 275 (275-295); Phosphorous 4.4 mg/dL (2.4-5.1); Potassium 4.0 mMol/L (3.4-5.1); Sodium 139 mMol/L (136-145); Total Protein 7.8 gm/dL (5.7-8.2); eGFR > 60 See Note
[2025-07-20 05:58] LABS: Basophils # (Auto) 0.0 Thou/mm3 (0.0-0.2); Basophils % (Auto) 1 % (0-2.5); Eosinophils # (Auto) 0.1 Thou/mm3 (0.0-0.5); Eosinophils % (Auto) 2 % (0-10); Hematocrit 41.6 % (41.0-53.0); Hemoglobin 14.3 g/dL (13.5-16.0); Immature Granulocytes Auto 0.05 Thou/mm3 (0.00-0.00); Lymphocytes # (Auto) 2.0 Thou/mm3 (1.0-4.8); Lymphocytes % (Auto) 32 % (10-50); Mean Corpuscular HGB Conc 34.4 g/dl (31.0-37.0); Mean Corpuscular Hemoglobin 33.2 pg (25.0-35.0); Mean Corpuscular Volume 97 fL (80-100); Monocytes # (Auto) 0.5 Thou/mm3 (0.0-0.8); Monocytes % (Auto) 9 % (0-12); Neutrophils # (Auto) 3.4 Thou/mm3 (1.8-7.7); Neutrophils % (Auto) 55 % (37-80); Nucleated Red Blood Cell # 0.00 Thou/mm3 (0.00-0.00); Nucleated Red Blood Cell % 0 /100 WBC (0); Platelet Count 162 Thou/mm3 (140-440); RDW Standard Deviation 52.6 fL (35.1-43.9); Red Blood Count 4.31 Miln/mm3 (4.50-5.90); White Blood Count 6.2 Thou/mm3 (3.8-10.6)
--- NOTE | 2025-07-20 06:09 | PC.NURSE ---
dr almeida notified that [facility] protocol medications have dropped off the MAR, dr states since the patient is currently sleeping and now showing signs of withdrawal, he will leave it up to the day team to decide if they want to reorder medications.
--- NOTE | 2025-07-20 07:42 | ESPR_ITS ---
Documentation for date of: 07/20/25 Subjective Subjective Interval history: transfered to [facility] given elevated CIWA consulted neurology for recs reguarding psych meds managment LFT uptrending, held PM dose olanzipine, increased tramadol dose to 100qhr, pt requesting stronger pain meds for herniated disc pain Exam Vital Signs Temp Pulse Resp BP Pulse Ox O2 Del Method O2 Flow Rate 97.9 F 96 18 128/95 H 98 Room Air 2 07/20/25 07:33 07/20/25 07:33 07/20/25 07:33 07/20/25 07:33 07/20/25 07:33 07/20/25 07:33 07/15/25 08:00 Narrative Exam General: poor hygiene. No acute distress. Neurologic: GCS 15. Alert and oriented x3, no gross neurological deficit, and patient able to move all 4 extremities. HEENT: Normocephalic, atraumatic, mucous membranes moist. Pupils reactive to light. Heart: Regular rate and rhythm, normal S1 and S2, no murmurs. Lungs: Clear to auscultation bilaterally with no wheezing or crackles. Abdomen: Soft nontender nondistended. No guarding or rebound tenderness. Extremities: Chronic lymphedema in the bilateral lower extremities. well perfused on visual inspections Skin: Warm. Dry. No rash or ecchymoses. psych: endorses auditory and visual hallucinations. Objective Labs 07/20/25 04:30 07/20/25 04:30 Labs: Laboratory Results - last 24 hr 07/20/25 04:30 WBC 6.2 RBC 4.31 L Hgb 14.3 Hct 41.6 MCV 97 MCH 33.2 MCHC 34.4 RDW Std Deviation 52.6 H Plt Count 162 D Neut % (Auto) 55 Lymph % (Auto) 32 [place] % (Auto) 9 Eos % (Auto) 2 Baso % (Auto) 1 Neut # (Auto) 3.4 Lymph # (Auto) 2.0 [place] # (Auto) 0.5 Eos # (Auto) 0.1 Baso # (Auto) 0.0 Immature Gran # (Auto) 0.05 H Absolute Nucleated RBC 0.00 Immature Gran % 1 H Nucleated RBC % 0 Sodium 139 Potassium 4.0 Chloride 104 Carbon Dioxide 25.2 Anion Gap 10 BUN 8 L Creatinine 0.6 Estim Creat Clear Calc 212.2 eGFR > 60 BUN/Creatinine Ratio 13 Glucose 90 Calculated Osmolality 275 Calcium 9.2 Corrected Calcium 9.2 Phosphorus 4.4 Magnesium 1.7 Total Bilirubin 0.5 AST 350 H ALT 358 H Alkaline Phosphatase 208 H Total Protein 7.8 Albumin 4.5 Globulin 3.3 Albumin/Globulin Ratio 1.4 Quality Measures Quality Measures VTE prophylaxis Assessment & Plan Assessment Current Active Medications: Generic Name Dose Route Start Last Admin Trade Name Freq PRN Reason Stop Dose Admin Acetaminophen 650 mg 07/17/25 12:07 07/17/25 23:14 Acetaminophen 325 Mg Tablet PO 08/16/25 12:06 650 mg Q6HR PRN Administration HEADACHE Chlordiazepoxide HCl 25 mg 07/18/25 21:00 07/19/25 20:23 Chlordiazepoxide Hcl 25 Mg Capsule PO 07/23/25 20:59 25 mg BID LEANDRA Administration Cyclobenzaprine HCl 5 mg 07/19/25 14:00 07/19/25 20:22 Cyclobenzaprine 5 Mg Tablet PO 08/18/25 13:59 5 mg BID LEANDRA Administration Dextrose 25 ml 07/15/25 03:54 Dextrose 50%-Water Inj 50 Ml Syringe IV 08/14/25 03:53 Q15MIN PRN BG 50-70 responsive npo pt Dextrose 50 ml 07/15/25 03:54 Dextrose 50%-Water Inj 50 Ml Syringe IV 08/14/25 03:53 Q15MIN PRN BG <50 OR BG <70 & pt unresponsive Diazepam 4 mg 07/20/25 08:00 Diazepam Inj 5 Mg/Ml Vial 2 Ml IVP 07/25/25 07:59 Q2HR LEANDRA Diazepam 2 mg 07/20/25 07:39 Diazepam Inj 5 Mg/Ml Vial 2 Ml IVP 07/25/25 07:38 Q2HR PRN CIWA SCORE 8-13 Folic Acid 1 mg 07/17/25 09:45 07/19/25 08:24 Folic Acid 1 Mg Tablet PO 08/16/25 09:44 1 mg QDAY LEANDRA Administration Gabapentin 400 mg 07/18/25 22:05 07/20/25 05:15 Gabapentin 100 Mg Capsule PO 08/17/25 22:04 400 mg TID LEANDRA Administration Glucagon 1 mg 07/15/25 03:54 Glucagon Inj 1 Mg Vial IM Q15MIN PRN BG <70, and no IV access Levetiracetam 500 mg 07/15/25 11:00 07/19/25 20:22 Levetiracetam Liqd 500 Mg/5 Ml Udc PO 08/14/25 10:59 500 mg BID LEANDRA Administration Lidocaine 1 patch 07/17/25 10:15 07/19/25 16:42 Lidocaine 5% 1 Patch TOP 08/16/25 10:14 1 patch UD PRN Administration Back pain Protocol Lorazepam 0.5 mg 07/20/25 07:39 Lorazepam 0.5 Mg Tablet PO 07/25/25 07:38 Q4HR PRN CIWA Score 2-6 Nicotine 21 mg 07/18/25 17:03 07/19/25 08:25 Nicotine Patch 21 Mg/24 Hr Patch.Td24 TOP 08/17/25 17:02 21 mg QDAY LEANDRA Administration Olanzapine 5 mg 07/19/25 21:00 07/19/25 20:23 Olanzapine 5 Mg Tablet PO 08/18/25 20:59 5 mg HS LEANDRA Administration Ondansetron HCl 4 mg 07/15/25 03:31 Ondansetron Inj 2 Mg/Ml Inj 2 Ml IVP 08/14/25 03:30 Q6H PRN NAUSEA OR VOMITING Protocol Pantoprazole Sodium 40 mg 07/20/25 09:00 Pantoprazole 40 Mg Tablet PO 08/19/25 08:59 QDAY LEANDRA Quetiapine Fumarate 400 mg 07/18/25 21:00 07/19/25 20:22 Quetiapine Fumarate 100 Mg Tablet PO 08/17/25 20:59 400 mg HS LEANDRA Administration Thiamine HCl 100 mg 07/18/25 09:00 07/19/25 08:24 Thiamine 100 Mg Tablet PO 08/17/25 08:59 100 mg QDAY LEANDRA Administration Tramadol HCl 50 mg 07/18/25 16:23 07/20/25 07:25 Tramadol Hcl 50 Mg Tablet PO 07/23/25 16:22 50 mg Q6HR PRN Administration PAIN 5-10 Plan Mr. Acuna is a 35-year-old gentleman with a history of homelessness, substance use disorder (including THC and methamphetamine use), suspected schizophrenia/ baseline psychosis, hypertension, and hyperlipidemia presents to the ED for alcohol withdrawal, continues to have visual and auditory hallucinations, suspect that they are 2/2 psychosis rather than etoh withdrawal, neurology consulted, appreciate recs. #suspected Schizophrenia #psychosis Patient takes Seroquel per med rec Patient mentions that he has been compliant with Seroquel Patient still endorses auditory hallucinations described as voices talking, difficult to determine if these are related to alcohol withdrawal versus his history of schizophrenia, likely multifactorial Patient denies any suicidal or homicidal ideations, he mentions that the voices he is hearing are not telling him to hurt himself or others Patient states that he always hears voices and has visual hallucinations, suspect that this may be his baseline. he states that the seroquel used to quiet the noises more but that he relies on alcohol to quiet the voices. pt states that he had some benefit for taking seroquel with TID dosing 50 AM, 50 in the afternoon, and a larger dose in the evening. Plan: ? Seroquel 400 mg - start Olanzapine 5 mg qhs - monitor qtc, given qtc prolonging agents - ekg q3 days - neurology consulted, appreciated recs regarding psych regimen #Acute Alcohol withdrawal #Alcohol intoxication Patient has previous admissions for alcohol intoxication, alcohol level on admission 50.6 Unsure when last drink was CIWA at the time of ED presentation was 34, received phenobarbital 260 mg IV x 2, with CIWA improvement to 9 Will need to continue monitoring symptoms including hallucinations, restlessness, vital sign changes including tachycardia to monitor for withdrawal Patient's CIWA still elevated at 11 Plan: ? CIWA protocol ? CIWA 7-11 --> midazolam 2 mg IV every 2 hours as needed ? CIWA 12?20 --> midazolam 4 mg IV every 2 hours as needed ? Chlordiazepoxide 25 mg p.o. 3 times daily, changed to twice daily on 07/18/2025 ? Thiamine 100 mg p.o. daily ? Folic acid 1 mg PO daily ? Seizure precautions ? Aspiration precautions #Chronic alcohol use #Transaminitis AST 507, ALT 201, alk phos 280 Hep panel negative Abdominal ultrasound showed severe hepatic steatosis, likely due to alcohol abuse PT and INR within normal parameters Patient's abdominal pain has improved AST ALT remain elevated and stable Lipase negative Plan: ? Monitor LFTs with daily labs #Seizure disorder Patient takes Keppra 500 mg p.o. twice daily per med rec Keppra level ordered Patient mentions that he has not been taking Keppra Plan: ? Continue Keppra 500 mg p.o. twice daily #Thrombocytopenia In the setting of alcoholic liver disease Platelet count on admission 98, stable No concern at the moment for bleeding Plan ? Monitor with daily CBC ? DC heparin #Hyperlipidemia ? Cholesterol and LDL cholesterol elevated ? Patient has elevated AST and ALT Plan: ? Consider starting statin upon discharge, though the patient has an issue with noncompliance and alcohol abuse ? Consider ezetimibe upon discharge #Stage II hypertension ? Patient has had stage II hypertension ? Per med rec the patient does not appear to be on any antihypertensives ? BP has been stable since admission Plan: ? Consider GDMT upon discharge with losartan #Neuropathy #Back pain secondary to herniated disc ? Patient takes gabapentin ? Patient mentions neuropathic pain in his legs - Patient mentions that he has a herniated disc in his lumbar region, he does not take any pain medication for chronic management, he mentions that he drinks alcohol to alleviate the pain Plan: ? Gabapentin 300 mg twice daily ? Tylenol 650 p.o. every 6 hours as needed - Tramadol 100 mg every 6 as needed, increased dose from 50 q6 to 100 q6 - d/c cyclobenzeprine 5 mg BID scheduled, patient stated that it did not assist with his pain #History of anxiety #Homeless #Polysubstance abuse, THC and methamphetamine #Hx of Alcohol abuse THC seen in U tox, alcohol level of 50.6 on admission Plan: ? Referral to manager social Health Maintenance: Diet: Regular diet GI prophylaxis: Protonix 40 mg IV daily DVT prophylaxis: d/c heparin given thrombocytopenia Antibiotics: None CODE STATUS: Full Disposition: Telemetry for close monitoring, CIWA protocol remains in place, patient receiving midazolam as needed for withdrawals, continuing Keppra and increased his dose of Seroquel, started tramadol as needed for back pain. librium bid. Plan discussed with my attending Dr. Medley and my senior resident Dr. Pam Tanner MD PGY1 Attending Provider Attestation/Addendum I reviewed labs, imaging, EKG, home medications and prior available records. Face to face evaluation was performed by me. I have personally examined the patient and discussed assessment and plan with the IM team. I reviewed the resident note and agree with the plan with exceptions as below. Alcohol abuse Alcohol withdrawal Possible associated psychosis Thrombocytopenia Transaminitis Continue CIWA protocol Continue quetiapine Added olanzapine Checked EKG: No QTc prolongation Monitor platelet level Monitor LFTs Completed this Eliquis today Consulted neurology Accepted to [facility]
[2025-07-20] MEDS: MIDAZOLAM INJ 1 MG/ML VIAL 2 ML 4 MG IVP ×6 (08:12→21:23)
[2025-07-20] MEDS: THIAMINE 100 MG TABLET PO (09:08)
[2025-07-20] MEDS: PANTOPRAZOLE 40 MG TABLET PO (09:08)
[2025-07-20] MEDS: FOLIC ACID 1 MG TABLET PO (09:08)
[2025-07-20] MEDS: levETIRAcetam LIQD 500 MG/5 ML UDC PO ×2 (09:08→20:30)
[2025-07-20] MEDS: NICOTINE PATCH 21 MG/24 HR PATCH.TD24 TOP (09:09)
--- NOTE | 2025-07-20 10:02 | PC.NURSE ---
PATIENT TRANSFER TO TELE VIA WHEELCHAIR ALERT AND ORIENTED X4.
--- NOTE | 2025-07-20 15:17 | PC.SS ---
SS met with patient to discuss history and d/c options. Patient verbalized he's been homeless for a while. He's had extensive history at rehab facilities in [facility]. Patient states his mother remains his emergency contact. They do not see him. Patient admitted to self inducing drugs and alcohol to eliminate the symptoms of his Schizophrenia. Patient states he's had hallucinations daily. He states he's ambulatory but uses a walker as needed. No phone. No income. Applied for Social Security and has a retread builder to assist. Patient does not receive SNAP currently but has in the past. He states he does not want to go to the [facility] as he's been in the past and was not a good experience. SS discussed [facility] and [facility] as alternate options for residential mental health treatment. Patient agreeable. SS explained that this is not guaranteed. Patient states he does not take his medication regularly. He does not see his p.c.p. regularly. SS will also contact [facility] for [employer] [facility] mobile unit to also follow up with patient.
--- NOTE | 2025-07-20 22:45 | PD.VCONSULT1 ---
Telemedicine visit statement This visit was conducted with the use of interactive audio and video telecommunications system that permits real time communication between the patient and the provider. Patient's verbal consent for virtual visit was obtained on 07/20/25 at 2245. History of Present Illness History of Present Illness History of present illness: Mr. Acuna is a 35-year-old male with substance use disorder (including alcohol, THC and methamphetamine use), possible schizophrenia, hypertension, and hyperlipidemia presents to the ER with alcohol withdrawal symptoms, primarily sweating and shaking. He reports recent methamphetamine use but is unsure of the exact timing of his last alcohol consumption. The patient describes daily vodka use but cannot estimate the quantity. He denies visual, auditory, or tactile hallucinations at this time. The patient also complains of a headache and is unsure if he has a history of seizures. He denies any chest pain or shortness of breath. Workup in the ER: Vital signs: T 97.8, BP 136/70, HR 116, RR 22, 96% on room air. Initial CIWA score 34. Blood alcohol level 50.6. EKG showed normal sinus rhythm at a rate of 89. CBC showed platelets 98, CMP showed creatinine 0.6, glucose 91, T. bili 0.8, AST 507, ALT 201, alk phos 280. Urine toxicology screen showed marijuana positive. Patient received phenobarbital to 260 mg IV x 2. CIWA improved to 9. Neurology was consulted for further management as he continued to display symptoms of withdrawal worsening pain needing frequent doses of narcotics. Past Medical History Past Medical History NEUROLOGIC: Positive Seizures (ETOH. No other SZ. Todays sz occured 1-2 minutes after drinking a pint of); Negative Neurological Disorders CARDIAC: Positive Cardiac Disorders, Hypercholesterolemia and Hypertension; Negative Congestive Heart Failure RESPIRATORY: Positive Chronic Obstructive Pulmonary Disease (COPD); Negative Asthma GASTROINTESTINAL: Negative Gastrointestinal Disorders GENITOURINARY: Negative Genitourinary Disorders or Renal Disease MUSCULOSKELETAL: Positive Musculoskeletal Disorders ENDOCRINE: Negative Endocrine Disorders, Diabetes Mellitus Type 1 or Diabetes Mellitus Type 2 HEMATOLOGIC: Negative Blood Disorders or Sickle Cell Disease PSYCHO/SOCIAL: Positive Psychiatric Problems, Schizophrenia, Depression and Anxiety OTHER HISTORY: Positive Hospitalization and Chicken Pox; Negative Autoimmune Disease, Down Syndrome, Developmental Delay, Shingles, Falls, Blood Transfusions or Anesthesia Reactions Family History FAMILY HISTORY: Positive Family Cancer Social History SMOKING STATUS: Never smoker SUBSTANCE USE: former substance user TeleMedicine ROS Pertinent Review of Systems Systems Reviewed: All systems reviewed, normal except as documented Meds Home Medications and Allergies Home Medications ?Medication ?Instructions ?Recorded ?Confirmed ?Type gabapentin 600 mg tablet 600 mg PO TID 11/24/24 07/15/25 History quetiapine 300 mg tablet (Seroquel) 600 mg PO HS 11/24/24 07/15/25 History Allergies Allergy/AdvReac Type Severity Reaction Status Date / Time ketorolac Allergy Intermediate ITCHING Verified 04/21/25 15:09 Virtual exam Vital Signs Temp Pulse Resp BP Pulse Ox O2 Del Method O2 Flow Rate 97.4 F 98 13 123/79 96 Room Air 2 07/20/25 20:00 07/20/25 20:00 07/20/25 20:00 07/20/25 20:00 07/20/25 20:00 07/20/25 16:00 07/15/25 08:00 Results Labs 07/21/25 05:24 07/21/25 05:24 Labs: Short CBC 07/20/25 Range/Units 04:30 WBC 6.2 (3.8-10.6) Thou/mm3 Hgb 14.3 (13.5-16.0) g/dL Hct 41.6 (41.0-53.0) % Plt Count 162 D (140-440) Thou/mm3 BMP 07/20/25 04:30 Sodium 139 Potassium 4.0 Chloride 104 Carbon Dioxide 25.2 BUN 8 L Creatinine 0.6 Glucose 90 Calcium 9.2 Liver Function 07/20/25 Range/Units 04:30 Total Bilirubin 0.5 (0.3-1.2) mg/dL AST 350 H (0-34) U/L ALT 358 H (10-49) U/L Alkaline Phosphatase 208 H (46-116) U/L Albumin 4.5 (3.5-5.0) gm/dL Assessment & Plan Problem List (1) Chronic pain: Status: Chronic Assessment and plan: With narcotic dependency 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 However he refused. (2) Alcohol dependence: Status: Chronic Assessment and plan: Advised alcohol cessation and he was provided with resources from web content & social media manager (3) Delirium tremens: Status: Resolved
[2025-07-21] VITALS: BP 113/91; PULSE 104; PULSE 106; RESP 28; TEMP 36.1; O2SAT 97
[2025-07-21] MEDS: MIDAZOLAM INJ 1 MG/ML VIAL 2 ML 2 MG IVP ×2 (00:17→06:21)
[2025-07-21 03:41] VITALS: BP 130/92; PULSE 95; RESP 15; TEMP 36.1; O2SAT 98
[2025-07-21 04:00] VITALS: PULSE 87
[2025-07-21] MEDS: GABAPENTIN 100 MG CAPSULE 400 MG PO (05:32)
[2025-07-21 06:07] LABS: Basophils # (Auto) 0.1 Thou/mm3 (0.0-0.2); Basophils % (Auto) 1 % (0-2.5); Eosinophils # (Auto) 0.1 Thou/mm3 (0.0-0.5); Eosinophils % (Auto) 3 % (0-10); Hematocrit 40.2 % (41.0-53.0); Hemoglobin 13.3 g/dL (13.5-16.0); Immature Granulocytes Auto 0.03 Thou/mm3 (0.00-0.00); Lymphocytes # (Auto) 2.0 Thou/mm3 (1.0-4.8); Lymphocytes % (Auto) 37 % (10-50); Mean Corpuscular HGB Conc 33.1 g/dl (31.0-37.0); Mean Corpuscular Hemoglobin 32.8 pg (25.0-35.0); Mean Corpuscular Volume 99 fL (80-100); Monocytes # (Auto) 0.6 Thou/mm3 (0.0-0.8); Monocytes % (Auto) 12 % (0-12); Neutrophils # (Auto) 2.7 Thou/mm3 (1.8-7.7); Neutrophils % (Auto) 48 % (37-80); Nucleated Red Blood Cell # 0.00 Thou/mm3 (0.00-0.00); Nucleated Red Blood Cell % 0 /100 WBC (0); Platelet Count 168 Thou/mm3 (140-440); RDW Standard Deviation 53.3 fL (35.1-43.9); Red Blood Count 4.06 Miln/mm3 (4.50-5.90); White Blood Count 5.5 Thou/mm3 (3.8-10.6)
[2025-07-21 06:39] LABS: Alanine Aminotransferase 371 U/L (10-49); Albumin, Serum 4.6 gm/dL (3.5-5.0); Albumin/Globulin Ratio 1.4 (1.2-2.2); Alkaline Phosphatase 212 U/L (46-116); Anion Gap 10 (7-16); Aspartate Amino Transferase 332 U/L (0-34); BUN/Creatinine Ratio 14 Ratio (12-20); Bilirubin,Total 0.5 mg/dL (0.3-1.2); Blood Urea Nitrogen 10 mg/dL (9-23); Calcium 9.7 mg/dL (8.3-10.6); Calcium (Corrected) 9.7 mg/dL (8.5-10.1); Carbon Dioxide 28.7 mMol/L (20.0-31.0); Chloride 102 mMol/L (98-107); Creatinine (Component) 0.7 mg/dL (0.6-1.3); Estimated Creatinine Clearance 187.6 mL/min (>60); Globulin 3.4 gm/dL (2.3-3.5); Glucose 97 mg/dL (74-106); Magnesium 1.7 mg/dL (1.6-2.6); Osmolality,Calculated 280 (275-295); Phosphorous 5.5 mg/dL (2.4-5.1); Potassium 4.6 mMol/L (3.4-5.1); Sodium 141 mMol/L (136-145); Total Protein 8.0 gm/dL (5.7-8.2); eGFR > 60 See Note
[2025-07-21 08:00] VITALS: BP 111/82; PULSE 123; PULSE 94; RESP 19; TEMP 36.4; O2SAT 96
--- NOTE | 2025-07-21 09:23 | ESDS_ITS ---
<Statement entered by Ingrid Solorzano MD - 07/22/25 08:04> Patient was seen and examined by me personally. I have reviewed the below documentation by the team resident and agree with its findings with any exceptions as below. Discharge plan was discussed with the attending, Dr. Medley. Ingrid Solorzano, PGY-3 Planned Discharge Date 07/21/25 DS: Providers Provider Date of admission: 07/15/25 03:31 Primary care physician: Jaime Do MD Admitting Provider: Malick Javier MD Attending Provider on Admission: Malick Javier MD Consults: 07/15/25 06:30 [facility] Referral - Nutrition Routine Comment: Positive screening for nutrition needs. [facility] Referral - Safety Routine Comment: Positive screening for safety needs. [facility] Referral - Transportation Routine Comment: Positive screening for transportation needs. [facility] Referral - Utilities Routine Comment: Positive screening for utility assistance needs. 07/17/25 12:09 Referral Physical Therapy Routine Comment: Physician Instructions: 07/20/25 09:46 Consult to Neurology / Tele-Neurology Routine Comment: help with psych meds, Consulting Provider: Donta Estevez Attending Provider on DC: Kermit Medley MD Discharging Provider: Avtar Rogers DO DS: Diagnosis Discharge Diagnosis (1) Alcohol withdrawal: Status: Acute Problem List Completed Was Problem List Reviewed/Reconciled?: Yes Hospital Course Hospital Course Hospital course: Hospital Course: 35-year-old male with a history of homelessness, substance use disorder (including THC and methamphetamine use), possible schizophrenia, hypertension, and hyperlipidemia presented to the ED on 07/15/2025 with alcohol withdrawal symptoms, primarily sweating and shaking. He reported recent methamphetamine use but is unsure of the exact timing of his last alcohol consumption. The patient described daily vodka use but cannot estimate the quantity. He denied visual, auditory, or tactile hallucinations at this time. The patient also complained of a headache and was unsure if he had a history of seizures. He denied any chest pain or shortness of breath. The patient was admitted for alcohol withdrawal and placed on a CIWA protocol. During his hospital stay his CIWA scores gradually improved. The patient was complaining of auditory hallucinations and severe back pain over the course of his hospital stay. He was treated for his back pain with tramadol and gabapentin. The patient mentioned that he had not been taking his home Keppra medication, though he could not remember the last time that he had a seizure because it had been so long. He was restarted on his Keppra medication and Seroquel nightly. He was also started on olanzapine. On hospital day 6 the patient was cleared for discharge from a medical and physical therapists standpoint. The patient was extremely upset and dissat isfied with his medical care. He requested to leave AGAINST MEDICAL ADVICE and refused to sign the release at first. The patient left his room and a code green was called. He was then stopped by security at the front door of the hospital, where he was convinced to sign the AGAINST MEDICAL ADVICE paperwork after the risks were explained to him. The patient then left the hospital. Problem List: #suspected Schizophrenia #psychosis #Acute Alcohol withdrawal #Alcohol intoxication #Chronic alcohol use #Transaminitis #Seizure disorder #Thrombocytopenia #Hyperlipidemia #Stage II hypertension #Neuropathy #Back pain secondary to herniated disc #History of anxiety #Homeless #Polysubstance abuse, THC and methamphetamine #Hx of Alcohol abuse Discharge Instructions: -Follow up with PCP within 1 week of discharge -Please abstain from alcohol -Take folic acid 1 mg once daily -Take thiamine 100 mg once daily -Continue rest of medications as previously prescribed -Return to the ED or call EMS if symptoms return and/or worsen. The patient was seen and discussed with my attending physician Dr. Jasmyne WHEELER and my senior resident Dr. Jeanine WHEELER PGY-3. Avtar Rogers DO PGY-1 Time Spent with Patient Time attestation: Total time spent providing and/or coordinating discharge services: More than 50% Time spent: Greater than 30 minutes Exam Vital Signs Temp Pulse Resp BP Pulse Ox O2 Del Method O2 Flow Rate 97.5 F 123 H 19 111/82 96 Room Air 2 07/21/25 08:00 07/21/25 08:00 07/21/25 08:00 07/21/25 08:00 07/21/25 08:00 07/21/25 08:00 07/15/25 08:00 Narrative Exam General: Poor hygiene. No acute distress. Neurologic: GCS 15. Alert and oriented x3, no gross neurological deficit, and patient able to move all 4 extremities. HEENT: Normocephalic, atraumatic, mucous membranes moist. Pupils reactive to light. Heart: Regular rate and rhythm, normal S1 and S2, no murmurs. Lungs: Clear to auscultation bilaterally with no wheezing or crackles. Abdomen: Soft nontender nondistended. No guarding or rebound tenderness. Extremities: Chronic lymphedema in the bilateral lower extremities. well perfused on visual inspections Skin: Warm. Dry. No rash or ecchymoses. psych: endorses auditory and visual hallucinations. Discharge Plan Plan Patient Disposition: HOME (Self Care) Patient condition on transfer: Stable Care Plan Goals: Discharge Recommendations: -Follow up with PCP within 1 week of discharge -Please abstain from alcohol -Take folic acid 1 mg once daily -Take thiamine 100 mg once daily -Continue rest of medications as previously prescribed -Return to the ED or call EMS if symptoms return and/or worsen. Prescriptions/Referrals Prescriptions/Med Rec: New thiamine HCl (vitamin B1) 100 mg capsule 100 mg PO QDAY 30 Days Qty: 30 0RF folic acid 1 mg tablet 1 mg PO QDAY 30 Days Qty: 30 0RF Continued gabapentin 600 mg tablet 600 mg PO TID quetiapine [Seroquel] 300 mg tablet 600 mg PO HS levetiracetam [Keppra] 500 mg tablet 500 mg PO BID MDD 2 Qty: 60 0RF Discontinued gabapentin 300 mg capsule 300 mg PO BID Qty: 14 0RF acetaminophen [Tylenol] 325 mg tablet 650 mg PO QID PRN (Reason: pain) Qty: 60 0RF Referrals: Jaime Do MD [Primary Care Provider, Family Practice] Patient/Caregiver Discharge Instructions Discharge Activity: activity as tolerated and resume usual activities Education Materials: Alcoholism Resources, Alcohol Withdrawal: What to Expect, ED Alcohol Withdrawal Print Language: Turkmen Stand Alone Forms: [facility]aisa Award Info., Patient Portal Info Letter Discharge Order Discharge Orders: Discharge (Routine); Ordered 07/21/25 Ordered By: Ingrid Solorzano Quality Discharge Quality Measures none Attestestation Attestation Attending attestation: I reviewed labs, imaging, EKG, home medications and prior available records. Face to face evaluation was performed by me. I have personally examined the patient and discussed assessment and plan with the IM team. I reviewed the resident note and agree with the plan with exceptions as below. Alcohol abuse Alcohol withdrawal Possible associated psychosis Thrombocytopenia Transaminitis Stop CIWA protocol as patient does not have withdrawal symptoms from alcohol Continue quetiapine Added olanzapine however will discontinue upon discharge Added Cymbalta for chronic pain Continue gabapentin Checked EKG: No QTc prolongation Monitor platelet level Monitor LFTs Consulted neurology: Recommended no medication adjustment Accepted to [facility] Time spent is 40 minutes. More than 50% of the time was spent on patient education and coordination of care.
[2025-07-21] MEDS: levETIRAcetam LIQD 500 MG/5 ML UDC PO (09:54)
[2025-07-21] MEDS: NICOTINE PATCH 21 MG/24 HR PATCH.TD24 TOP (09:54)
[2025-07-21] MEDS: THIAMINE 100 MG TABLET PO (09:56)
[2025-07-21] MEDS: PANTOPRAZOLE 40 MG TABLET PO (09:56)
[2025-07-21] MEDS: FOLIC ACID 1 MG TABLET PO (09:56)
--- NOTE | 2025-07-21 11:26 | PC.SS ---
[employer] informed by attending that patient's discharge will be held. Attending to start patient on Cymbalta. [employer] LAB[employer]ER met with patient at bedside to confirm discharge plan to [facility]. Patient informed [employer] F[employer]ORER that he is declining to transition to [facility] at the time of discharge. GR[employer] F[employer] LABORER informed that patient might depart AMA, patient provided with shirt.
[2025-07-21 12:00] VITALS: BP 128/96; PULSE 107; PULSE 94; RESP 19; TEMP 36.1; O2SAT 96
[2025-07-21] MEDS: DULoxetine HCL 30 MG CAPSULE PO (12:35)
--- NOTE | 2025-07-21 15:01 | ESPR_ITS ---
Addendum Progress Note Addendum Date of report being addended: 07/21/25 Narrative: Attending attestation: I reviewed labs, imaging, EKG, home medications and prior available records. Face to face evaluation was performed by me. I have personally examined the patient and discussed assessment and plan with the IM team. I reviewed the resident note and agree with the plan with exceptions as below. Alcohol abuse Alcohol withdrawal Possible associated psychosis Thrombocytopenia Transaminitis Stop CIWA protocol as patient does not have withdrawal symptoms from alcohol Continue quetiapine Added olanzapine however will discontinue upon discharge Added Cymbalta for chronic pain Continue gabapentin Checked EKG: No QTc prolongation Monitor platelet level Monitor LFTs Consulted neurology: Recommended no medication adjustment Accepted to [facility] Time spent is 40 minutes. More than 50% of the time was spent on patient education and coordination of care.
--- NOTE | 2025-07-21 15:22 | PC.NURSE ---
Care assumed at 1050. Pt refusing conveyor monitor, self removed IV, unplugged [employer]. Pt refusing discharge to [facility]. Pt's mother, Pati contacted at , to inform her of plan of care and pt's refusal of placement. Providers called to bedside to discuss plan of care. 2 attempts made, no answer, unable to leave voicemail. Pt agreed to comply with plan of care at that time. At 1515 pt became agitated and uncooperative. Dr. Rogers called to bedside. Pt left AMA at 1532, silvio shetty called per protocol.
--- NOTE | 2025-07-21 22:29 | VVPN_ITS ---
Telemedicine visit statement This visit was conducted with the use of interactive audio and video telecommunications system that permits real time communication between the patient and the provider. Patient's verbal consent for virtual visit was obtained on 07/21/25 at 2229. Documentation for date of: 07/21/25 Subjective Subjective Interval history: Patient is in telemetry. Continue to complain of pain in both lower extremities especially in the right big toe with discoloration and swelling, requesting pain medication [id number]. Virtual exam Vital Signs Temp Pulse Resp BP Pulse Ox O2 Del Method O2 Flow Rate 96.9 F 107 H 19 128/96 H 96 Room Air 2 07/21/25 12:00 07/21/25 12:00 07/21/25 12:00 07/21/25 12:00 07/21/25 12:00 07/21/25 12:00 07/15/25 08:00 Objective Labs 07/21/25 05:24 07/21/25 05:24 Labs: Laboratory Results - last 24 hr 07/21/25 05:24 WBC 5.5 RBC 4.06 L Hgb 13.3 L Hct 40.2 L MCV 99 MCH 32.8 MCHC 33.1 RDW Std Deviation 53.3 H Plt Count 168 Neut % (Auto) 48 Lymph % (Auto) 37 [place] % (Auto) 12 Eos % (Auto) 3 Baso % (Auto) 1 Neut # (Auto) 2.7 Lymph # (Auto) 2.0 [place] # (Auto) 0.6 Eos # (Auto) 0.1 Baso # (Auto) 0.1 Immature Gran # (Auto) 0.03 H Absolute Nucleated RBC 0.00 Immature Gran % 1 H Nucleated RBC % 0 Sodium 141 Potassium 4.6 D Chloride 102 Carbon Dioxide 28.7 Anion Gap 10 BUN 10 Creatinine 0.7 Estim Creat Clear Calc 187.6 eGFR > 60 BUN/Creatinine Ratio 14 Glucose 97 Calculated Osmolality 280 Calcium 9.7 Corrected Calcium 9.7 Phosphorus 5.5 H Magnesium 1.7 Total Bilirubin 0.5 AST 332 H ALT 371 H Alkaline Phosphatase 212 H Total Protein 8.0 Albumin 4.6 Globulin 3.4 Albumin/Globulin Ratio 1.4 Assessment & Plan Problem List (1) Chronic pain: Status: Chronic Assessment and plan: With narcotic dependency 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
== END 2025-07-21 15:05 | disposition left against medical advice (07) | DRG 770 ==
LOC: SERX 03:38 → SERHOLD 03:55 → S2NX 05:18 → S3NX 07-18 03:44 → S2NX 07-20 09:52
PROVIDERS: Admitting Provider Internal Medicine; Emergency Provider Emergency Medicine; PCP Family Medicine; Visit Provider Student in an Organized Health Care Education/Training Program
DX: F10.239 Alcohol dependence with withdrawal, unspecified (principal); F10.229 Alcohol dependence with intoxication, unspecified; I10 Essential (primary) hypertension; Y90.2 Blood alcohol level of 40-59 mg/100 ml; D69.6 Thrombocytopenia, unspecified; F41.9 Anxiety disorder, unspecified; F12.10 Cannabis abuse, uncomplicated; F15.10 Other stimulant abuse, uncomplicated; E78.00 Pure hypercholesterolemia, unspecified; F20.9 Schizophrenia, unspecified; G89.29 Other chronic pain; F11.20 Opioid dependence, uncomplicated; G62.9 Polyneuropathy, unspecified; K70.0 Alcoholic fatty liver; M51.26 Other intervertebral disc displacement, lumbar region; R56.9 Unspecified convulsions; Z59.02 Unsheltered homelessness; Z53.29 Procedure and treatment not carried out because of patient's decision for other reasons; Z91.148 Patient's other noncompliance with medication regimen for other reason; Z88.6 Allergy status to analgesic agent; Z79.899 Other long term (current) drug therapy
CPT/HCPCS: 36415; 74176; 76700; 80053; 80061; 80074; 80177; 80307; 80320; 81001; 83605; 83690; 83735; 84100; 84443; 85025; 85610; 93005; 93225; 96365; 96375; 96376; 97162; 99283; A4216; J1644; J2060; J2250; J2405; J2470; J2560; J3411; J3475; J3490; J7050; J7120; A9270; G0480